=== PATIENT | female | born 1975 | race Caucasian/White ===

== ENCOUNTER → 2022-01-31 13:29 | Outpatient (CLI) | payer OTHER, SELFPAY ==
--- NOTE | ~2022-01-31 | MM_ITS ---
EXAMINATION: MM screening sophia BI w jessica HISTORY: Screening mammogram TECHNIQUE: Craniocaudal and mediolateral oblique 3-D tomosynthesis images were obtained and synthetic 2-D images were generated. CAD analysis was submitted and interpreted. COMPARISON: No prior mammogram is available for comparison at this institution. BREAST PARENCHYMAL COMPOSITION: The breasts are almost entirely fatty FINDINGS: There is no evidence of suspicious mass, calcification, or architectural distortion to sugg est malignancy in either breast. There has been no suspicious interval change. IMPRESSION: 1. No mammographic evidence of malignancy. 2. Recommend routine screening mammography in one year. BI-RADS Category 1: Negative Reviewed, dictated and finalized at location A.
== END ==
PROVIDERS: PCP Nurse Practitioner Obstetrics & Gynecology; Visit Provider Nurse Practitioner Obstetrics & Gynecology
DX: Z12.31 Encounter for screening mammogram for malignant neoplasm of breast (principal)
CPT/HCPCS: 77063; 77067

== ENCOUNTER → 2023-05-24 06:56 | Outpatient (CLI) | payer OTHER, SELFPAY ==
--- NOTE | ~2023-05-24 | MM_ITS ---
EXAMINATION: MM screening sophia BI w jessica HISTORY: Screening mammogram TECHNIQUE: Craniocaudal and mediolateral oblique 3-D tomosynthesis images were obtained and synthetic 2-D images were generated. CAD analysis was submitted and interpreted. COMPARISON: 01/27/2022 bilateral screening mammogram BREAST PARENCHYMAL COMPOSITION: The breasts are almost entirely fatty. FINDINGS: There is no evidence of suspicious mass, calcification, or architectural distortion to sugg est malignancy in either breast. There has been no suspicious interval change. IMPRESSION: 1. No mammographic evidence of malignancy. 2. Recommend routine screening mammography in one year. BI-RADS Category 1: Negative Reviewed, dictated and finalized at location A.
== END ==
PROVIDERS: PCP Nurse Practitioner Obstetrics & Gynecology; Visit Provider Nurse Practitioner Obstetrics & Gynecology
DX: Z12.31 Encounter for screening mammogram for malignant neoplasm of breast (principal)
CPT/HCPCS: 77063; 77067

== ENCOUNTER 2023-12-20 08:08 | Day surgery (SDC) | payer OTHER, SELFPAY ==
[2023-11-29 08:34] VITALS: BMI 33.3
[2023-12-06 07:32] VITALS: BMI 34.9
[2023-12-20 08:45] VITALS: BP 129/89; PULSE 93; RESP 16; TEMP 37.2; O2SAT 99
[2023-12-20] MEDS: LACTATED RINGERS 1,000 ML 150 ML IV CONT (08:52)
--- NOTE | 2023-12-20 09:04 | P.PNAN_ITS ---
Anes - Initial Pre Proc Eval Procedure: Operation Date: 12/20/23 10:00 Proposed Procedures p Screening Colonoscopy - Royce Foster MD Date/Time: 12/20/23 09:04 Surgeon: Royce Foster MD Pre Op Diagnosis: Screening Neoplasm of Colon Patient Data Age: 48 Gender: F Height: 1.52 m Weight: 74.2 kg Last Vital Signs Temp 37.2 C 12/20/23 08:45 Pulse 93 12/20/23 08:45 Resp 16 12/20/23 08:45 BP 129/89 12/20/23 08:45 Pulse Ox 99 12/20/23 08:45 O2 Del Method Room Air 12/20/23 08:45 Allergies Allergy/AdvReac Type Severity Reaction Status Date / Time aspartame AdvReac Mild MOUTH Verified 12/20/23 08:43 ITCHING Home Medications Medication Instructions Recorded Confirmed Type multivit with minerals-iron 18 1 tablet PO DAILY 12/06/23 12/20/23 History mg-folic ac 400 mcg-vit K 25 mcg tablet (Adults Multivitamin) Patient hx anesthesia problems: none Family hx anesthesia problems: none Results Review: All pre-operative results and documents have been reviewed as part of the pre- operative evaluation. COUNTS INCLUDE 234 BEDS AT THE [facility] Past Medical History Medical History (Updated 12/20/23 @ 09:04 by Kevin Monreal MD) Obesity Surgical History Surgical History (Updated 12/20/23 @ 09:05 by Kevin Monreal MD) H/O arthroscopic knee surgery Social History Social History Smoking status: Never smoker Alcohol intake: current Substance use: never Substance use type: does not use Living arrangements: with family Spiritual care concerns: No Anes - Eval Final PreProcedure Day of Procedure 12/20/23 09:04 Patient weight: obese Heart: regular rate and rhythm Lungs: clear to auscultation Airway: Mallampati scale class II Neurological: alert and oriented Last oral intake: >/= 8 hours ASA classification: II Emergent: no Anesthetic plan: proceed Anesthesia type and monitoring: general GIVS and standard monitoring Results Review: All pre-operative results and documents have been reviewed as part of the pre- operative evaluation. Informed Consent: The patient's anesthetic plan and its attendant risks and benefits were discussed with the patient/family/POA. Questions were solicited and answers provided to the satisfaction of the patient/family/POA.
--- NOTE | 2023-12-20 09:37 | P.HP_ITS ---
History of Present Illness History of Present Illness Consent: Risks, benefits, and alternatives have been discussed and questions answered. Patient agrees to proceed with procedure. Chief complaint: Screening Neoplasm of Colon Narrative: Nava Lee is a 48 year old female presents for screening colonoscopy. Patient's current weight appetite and bowel movements are normal. Patient denies abdominal pain. She has had no bleeding. Family history noncontri butory. Review of Systems Review of Systems: All systems reviewed & are unremarkable except as noted in HPI and below PMFSH Past Medical History Medical History (Updated 12/20/23 @ 09:39 by Royce Foster MD) Obesity Surgical History Surgical History (Updated 12/20/23 @ 09:05 by Kevin Monreal MD) H/O arthroscopic knee surgery Social History Social History Smoking status: Never smoker Alcohol intake: current Substance use: never Substance use type: does not use Living arrangements: with family Spiritual care concerns: No Meds Home Medications and Allergies Home Medications Medication Instructions Recorded Confirmed Type multivit with minerals-iron 18 1 tablet PO DAILY 12/06/23 12/20/23 History mg-folic ac 400 mcg-vit K 25 mcg tablet (Adults Multivitamin) Allergies Allergy/AdvReac Type Severity Reaction Status Date / Time aspartame AdvReac Mild MOUTH Verified 12/20/23 08:43 ITCHING Vital Signs Vital Signs - 24 hr 12/20/23 08:45 Temperature 98.9 F Pulse Rate 93 Respiratory Rate 16 Blood Pressure 129/89 Pulse Oximetry 99 Oxygen Delivery Room Air Exam Narrative: Physical exam reveals patient to be alert. Vital signs stable. HEENT exam is unremarkable. Patient is anicteric. Lungs are clear to auscultation and to percussion heart is without murmur or extra sounds. Abdomen bowel sounds are present soft nontender with no organomegaly. Digital external rectal exam normal. Assessment and Plan Assessment and plan (1) Encounter for screening colonoscopy: Code(s): Z12.11 - Encounter for screening for malignant neoplasm of colon Status: Acute Assessment and Plan: Presents today for screening colonoscopy. She appears to be at average risk for colon polyps.
[2023-12-20 10:56] VITALS: BP 103/72; PULSE 74; RESP 15; O2SAT 98
[2023-12-20 11:06] VITALS: BP 116/81; PULSE 73; RESP 16; O2SAT 100
--- NOTE | 2023-12-20 11:15 | WPDANESPN ---
Anes - Prog Note Post-Op Date/Time: 12/20/23 11:15 Cardiovascular status: normal Respiratory status: normal Airway patency: baseline Mental status: baseline Post-Op hydration status: normal Vital Signs: Last Vital Signs Temp 37.2 C 12/20/23 08:45 Pulse 73 12/20/23 11:06 Resp 16 12/20/23 11:06 BP 116/81 12/20/23 11:06 Pulse Ox 100 12/20/23 11:06 O2 Del Method Room Air 12/20/23 11:06 Pain Score (VAS): 0/10 I/O: Intake & Output 12/19/23 12/20/23 12/20/23 23:59 07:59 15:59 Intake Total 300 Balance 300 Patient Feedback: Patient satisfied with anesthetic care.
[2023-12-20 11:16] VITALS: BP 109/79; PULSE 68; RESP 15; O2SAT 99
== END 2023-12-20 11:29 | disposition home or self-care (01) ==
PROVIDERS: Visit Provider Internal Medicine Gastroenterology
PROC: 0DJD8ZZ Inspection of Lower Intestinal Tract, Via Natural or Artificial Opening Endoscopic (ICD-10-PCS; CPT 45378; principal; 2023-12-20 10:00)
DX: Z12.11 Encounter for screening for malignant neoplasm of colon (principal); K57.30 Diverticulosis of large intestine without perforation or abscess without bleeding; K64.8 Other hemorrhoids
CPT/HCPCS: 45378

== ENCOUNTER 2024-06-04 11:30 | Outpatient (CLI) | payer OTHER, BC, SELFPAY ==
--- NOTE | ~2024-06-04 | MM_ITS ---
EXAMINATION: MM screening sophia BI w jessica HISTORY: Screening TECHNIQUE: Craniocaudal and mediolateral oblique 3-D tomosynthesis images were obtained and synthetic 2-D images were generated. CAD analysis was submitted and interpreted. COMPARISON: Comparison to multiple prior studies sequentially, with oldest reviewed study dated 01/31. BREAST PARENCHYMAL COMPOSITION: Not dense: There are scattered areas of fibroglandular density. FINDINGS: There is no evidence of suspicious mass, calcification, or architectural distortion to sugg est malignancy in either breast. There has been no suspicious interval change. IMPRESSION: 1. No mammographic evidence of malignancy. 2. Recommend routine screening mammography in one year. BI-RADS Category 1: Negative Reviewed, dictated and finalized at location B.
== END 2024-06-04 11:31 | disposition home or self-care (01) ==
PROVIDERS: Visit Provider Obstetrics & Gynecology
DX: Z12.31 Encounter for screening mammogram for malignant neoplasm of breast (principal)
CPT/HCPCS: 77063; 77067

== ENCOUNTER 2025-02-02 06:40 | Observation (INO) | payer OTHER, BC, SELFPAY ==
[2025-02-02] VITALS (8 sets, daily range): BP systolic 126–154; BP diastolic 65–89; PULSE 68–88; RESP 12–20; TEMP 36.4–37.8; O2SAT 95–100; BMI 32.3
--- NOTE | ~2025-02-02 | MR_ITS ---
EXAMINATION: MR MRCP wo/w con/w 3D wo ind DATE: 02/03/2025 12:40 INDICATION: Abnormal CT. Assess for cholecystitis. TECHNIQUE: Magnetic resonance imaging (MRI) of the abdomen was performed without and with 15 mL Multi jaye intravenous contrast. Sequences included coronal T2-weighted SS-FSE, coronal T2-weighted FS SS- FSE, coronal T2-weighted FS FIESTA, axial T2-weighted FS FIESTA, axial T2-weighted FIESTA, sagittal T 2-weighted SS-FSE, axial T1-weighted dual-echo FSPGR, axial T2-weighted SS-FSE, axial T1-weighted LAV A, axial T2-weighted STIR FSE. Thick-slab T2-weighted FRFSE-XL images were obtained for magnetic reso nance cholangiopancreatography (MRCP). Rotating maximum intensity projection 3-D reconstructions of t he volumetric data were created by the technologist. Postcontrast sequences included a time course of axial T1-weighted LAVA. COMPARISON: CT dated 02/02/2025 FINDINGS: ABDOMEN MRI: Heart size is normal. No pericardial effusion. Mild dependent atelectasis in bilateral l ower lobes. There are multiple low signal intensity gallstones within the decompressed gallbladder. The liver, pancreas, right kidney and bilateral adrenal glands are normal. 1 cm T2 hyperintense none nhancing left renal cyst. 9.4 x 6.9 x 6.8 cm bilobed nonenhancing thick walled cystic lesion in the p ancreas with peripheral rim calcific lesion evident on prior CT likely sequela prior infection or hem atoma. Visualized portion of the bowels are unremarkable. No pathologically enlarged abdominal or upp er pelvic lymphadenopathy. Bone marrow signal is normal throughout. ABDOMEN MRCP: The previously seen intrahepatic biliary ductal dilation has resolved. There has also been interval r esolution of the previously seen extra hepatic biliary ductal dilation with common bile duct previous ly measuring 1.3 cm and common bile duct measuring up to 8 mm currently measuring 5-6 mm and 3 mm res pectively. No evident intraluminal filling defects to suggest current choledocholithiasis. IMPRESSION: 1. Cholelithiasis within the decompressed gallbladder. 2. Interval resolution of the prior intra and extra hepatic biliary ductal dilation with no evident c holedocholithiasis or other obstructing lesions. 3. Peripherally calcified cystic lesion in the spleen, likely sequela of chronic infection or hematom a. Reviewed, dictated and finalized at location A. IMPRESSION: 1. Cholelithiasis within the decompressed gallbladder. 2. Interval resolution of the prior intra and extra hepatic biliary ductal dila tion with no evident choledocholithiasis or other obstructing lesions. 3. Peripherally calcified cystic lesion in the spleen, likely sequela of chroni c infection or hematoma.
--- NOTE | ~2025-02-02 | US_ITS ---
US right upper quadrant INDICATION: Abnormal CT. Consider cholecystitis. PROCEDURE: Realtime right upper abdominal ultrasound. COMPARISON: No prior studies for comparison. FINDINGS: The pancreas is normal without focal mass or pancreatic ductal dilation. Liver echotexture is normal without focal mass or intrahepatic biliary dilatation. There is normal directional flow i n the portal vein. Gallbladder is contracted and contains stones. Common bile duct measures 4 mm. No sonographic Franklin y's sign. IMPRESSION: 1: Contracted gallbladder with stones. Cannot exclude gallbladder wall thickening. Reviewed, dictated and finalized at location A. IMPRESSION: 1: Contracted gallbladder with stones. Cannot exclude gallbladder wall thickeni ng.
--- NOTE | ~2025-02-02 | CT_ITS ---
CLINICAL INDICATION: Diffuse abdominal pain COMPARISON: None. TECHNIQUE: Multiple contiguous axial images of the abdomen and pelvis were performed following the ad ministration of with 100 mL Omnipaque-350 intravenous contrast The dose-length product (DLP) was 689.90 mGy-cm. Automated exposure control and iterative reconstruction technique were employed. FINDINGS/OBSERVATIONS: Visualized lower thorax: Trace right basilar atelectasis. The remainder of the bilateral lung bases are clear. The heart is of normal size, without pericardial effusion. Small hiatal hernia is present. Liver: The liver demonstrates homogeneous enhancement and is enlarged measuring 22 cm in longitudinal dimens ion. Gallbladder and biliary system: The gallbladder is decompressed, with surrounding inflammatory change and stones. Intra and extrahepatic biliary ductal dilatation is identified with the common bile duct measuring 9. 3 mm. Pancreas: The pancreas enhances homogeneously without pancreatic ductal dilatation. Spleen: Splenic cysts with rim calcifications are identified measuring 6.7 and 5.6 cm, respectively. The remainder of the spleen enhances homogeneously and is not enlarged. Kidneys: The bilateral kidneys enhance symmetrically without hydronephrosis or renal calculi. Adrenal glands: Unremarkable. Gastrointestinal tract: Colonic diverticulosis without surrounding inflammatory change. Fecal stasis within the colon. Appendix: The air-filled appendix is of normal caliber (axial series, images 113 through 129) Vasculature: Unremarkable. Lymph nodes: No pathologically enlarged or morphologically suspicious lymph nodes within the retroperitoneum or at the root of the mesentery. Pelvic structures: The bladder is markedly distended, almost the level of the umbilicus. The uterus is anteverted and anteflexed. Body wall and musculoskeletal: Small fat-containing umbilical hernia. No significant degenerative disease within the lower thoracic or lumbosacral spine. IMPRESSION: Intra and extrahepatic biliary ductal dilatation without gallbladder enlargement but with significant gallbladder inflammation. No pancreatic ductal dilatation is identified No discrete ampullary mass is visualized with cross-sectional imaging. No calcified stone is visualiz ed as a source of obstruction. Significant hepatomegaly. Trace right basilar atelectasis Reviewed, dictated and finalized at location A. IMPRESSION: Intra and extrahepatic biliary ductal dilatation without gallbladder enlargemen t but with significant gallbladder inflammation. No pancreatic ductal dilatatio n is identified No discrete ampullary mass is visualized with cross-sectional imaging. No calci fied stone is visualized as a source of obstruction. Significant hepatomegaly. Trace right basilar atelectasis
--- OUTSIDE RECORDS SUMMARY | 2025-02-02 06:42 | XMS_ITS | Encounter Summary ---
Author Organization [facility] Address [address] [place] [address] Care Team Providers Care Smudger Name Role Phone Joselito Matute DO Unavailable [phone] Aditya Yip MD Unavailable [phone] Aditya Yip MD Primary Care Provider [phone] Encounter Details Date Type Department Care Team (Late st Contact Info) Description 01/29/2025 Orders Only [facility] [address] [phone] Aditya Yip MD [address] [place] [phone] Prediabetes ; Vitamin D deficiency; Well adult exam Social History Tobacco Use Types Packs/Day Years Used Date Smoking Tobacco: Never Smokeless Tobacco: Never Alcohol Use Standard Drinks/Week Comments Yes 0.8 (1 standard drink = 0.6 oz p ure alcohol) Comments No Sex and Gender Information Value Date Recorded Sex Assigned at Not on file Legal Sex Female 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 Gender Identity Not on file Sexual Orientation Not on file 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 file N ot on file Not on file documented as of this encounter Plan of Treatment Upcoming Encounters Date Type Department Care Team (Late st Contact Info) Description 02/09/2025 9:30 AM CDT Office Visit [facility] - Family [address] [place] [phone] Kiya Thompson, ASSISTED LIVING MANAGER-FILM NUMBERER [address] [phone] Scheduled Orders Name Type Priority Associated Diagnoses Orde r Schedule HEMOGLOBIN A1C Lab Routine Prediabetes Ordered: 01/29/2025 TSH Lab Routine Well adult exam Ordered: 01/29/2025 VITAMIN D 25-HYDROXY Lab Routine Vitamin D deficiency Ordered: 01/29/2025 LIPID PROFILE REFLEX LDL DIRECT Lab Routine Well adult exam Ordered: 01/29/2025 CBC WITH DIFFERENTIAL Lab Routine Well adult exam Ordered: 01/29/2025 COMPREHENSIVE METABOLIC PANEL Lab Routine Well adult exam Ordered: 01/29/2025 documented as of this encounter Visit Diagnoses Diagnosis Prediabetes- Primary Other abnormal glucose Vitamin D deficiency Well adult exam Routine general medical examination at a health care facility documented in this encounter Care Teams Smudger Relationship Specialty Start Date End Date Aditya Yip MD [address] [phone] PCP - General Family Medicine 11/22/23 Joselito Matute DO Orthopedic Surgery 07/03/17 Aditya Yip MD [address] [phone] Family Medicine 11/22/23 documented as of this encounter
--- OUTSIDE RECORDS SUMMARY | 2025-02-02 06:42 | XMS_ITS | Clinical Summary ---
Author Organization [facility] Address [address] [place] [address] Care Team Providers Care Open Die Inspector Name Role Phone Colin France MD Primary Care Provider [phone] Allergies No known active allergies Medications No known medications Immunizations Immunization Administration Dates Next Due (ADACEL/BOOSTRIX)(10 YR UP) TDAP VACCINE, 0.5ML, IM 12/18/2017 Social History Tobacco Use Types Packs/Day Years Used Date Smoking Tobacco: Never Smokeless Tobacco: Never Alcohol Use Standard Drinks/Week Comments No 0 (1 standard drink = 0.6 oz pur e alcohol) Comments No Sex and Gender Information Value Date Recorded Sex Assigned at Not on file Legal Sex Female 11:37 AM CDT Gender Identity Not on file Sexual Orientation Not on file Last Filed Vital Signs Vital Sign Reading Time Taken Comments Blood Pressure 131/82 12/26/2017 12:05 PM CDT Pulse 81 12/26/2017 12:05 PM CDT Temperature 36.8 C (98.2 F) 12/26/2017 12:05 PM CDT Respiratory Rate 16 12/26/2017 12:05 PM CDT Oxygen Saturation 100% 12/26/2017 12:05 PM CDT Inhaled Oxygen Concentration - - Weight 76.7 kg (169 lb) 12/26/2017 12:05 PM CDT Height 152.4 cm (5') 12/26/2017 12:05 PM CDT Body Mass Index 33.01 12/26/2017 12:05 PM CDT Plan of Treatment Health Maintenance Due Date Last Done Comments HEPATITIS B VACCINES (1 of 3 - 19+ 3-dose series) 05/12 HPV/Cotest (21-29) 1998 CERVICAL CANCER SCREENING 2007 HPV/Cotest (30-65) 2007 PAP SMEAR 2007 BREAST CANCER SCREENING 2017 COLORECTAL SCREENING 2022 Colorectal Cancer Screening 2022 FIT-DNA Q 3 years 2022 FIT/FOBT Q 1 year 2022 Flex Sig/CT Colonography Q 5 years 2022 INFLUENZA VACCINE (#1) 2024 DTAP/TDAP/TD VACCINES (2 - Td or Tdap) 12/19/2027 Care Teams Open Die Inspector Relationship Specialty Start Date End Date Colin France MD [address] [place] [id number] PCP - General Family Practice 12/18/17
--- OUTSIDE RECORDS SUMMARY | 2025-02-02 06:42 | XMS_ITS | Encounter Summary ---
Author Organization [facility] Address [address] [place] [address] Care Team Providers Care Master Glazier Name Role Phone Colin France MD Primary Care Provider [phone] Joselito Matute DO Unavailable [phone] Aditya Yip MD Unavailable [phone] Aditya Yip MD Primary Care Provider [phone] Encounter Details Date Type Department Care Team (Late st Contact Info) Description 08/30/2017 [facility] Outpatient Visit 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 - Family Medicine [address] [facility], [address] [place] [address] Kiya Thompson, MENU PLANNER-MATTRESS FILLER [address] [phone] documented as of this encounter Visit Diagnoses Not on filedocumented in this encounter Care Teams Master Glazier Relationship Specialty Start Date End Date Colin France MD [address] [place] [id number] PCP - General 10/18/10 11/21/23 Aditya Yip MD [address] [phone] PCP - General Family Medicine 11/22/23 Joselito Matute DO [address] [place] [id number] Orthopedic Surgery 07/03/17 Aditya Yip MD [address] [phone] Family Medicine 11/22/23 documented as of this encounter
--- OUTSIDE RECORDS SUMMARY | 2025-02-02 06:42 | XMS_ITS | Clinical Summary ---
Author Organization [facility] Address [address] [place] [address] Care Team Providers Care Business Technology Architect Name Role Phone Joselito Matute DO Unavailable [phone] Aditya Yip MD Unavailable [phone] Aditya Yip MD Primary Care Provider [phone] Source Comments [facility],non-owned Affiliates and Associated Physician Practices is amultiple site organization consisting of ambulatory clinics and hospital sitesin [place], [place], [place] and [place]. This disclosure is being madepursuant to the Care Everywhere program and may not contain all information available regarding this patient. Last updated 18.[facility] Allergies Active Allergy Reactions Criticality Noted Date Comments Artificial Sweeteners Headache 11/22/2023 Soft palate also starts itching Medications * Be aware that medications may not be up to date on this document. Alwaysverify current medications with the patient. No known medications Active Problems Problem Noted Date Diagnosed Date Closed displaced spiral fracture of shaft of rig ht humerus 07/12/2017 Hypertriglyceridemia 06/14/2012 Hyperglycemia 06/14/2012 Routine general medical exam ination at a health care facility 06/10/2012 Well woman exam with routine gynecological exam 06/10/2012 Obesity 09/24/2010 Encounters Date Type Department Care Team Description 01/29/2025 Orders Only [facility] - Family Medicine [address] [place] [address], [address] [place] [address] Aditya Yip MD Prediabetes ; Vitamin D deficiency; Well adult exam 01/29/2025 Telephone [facility] [address] [place] [address], [address] [place] [address] Aditya Yip MD Request Lab Order from Last 3 Months Immunizations Immunization Administration Dates Next Due INFLUENZA VACCINE, TRIV. (FL UZONE; FLULAVAL; FLUARIX; AFLURIA TRIVALENT; 6MO+), 0.5 ML (IIV3) 08/21/2015 TDAP (7yrs+) 12/18/2017,06/10/2012 TDAP, HISTORIC VACCINE 12/06/2015 Family History Medical History Relation Name Comments Hypertension Brother Trae Diabetes; unknown type Father currently diet controled, no meds Hypertension Father Hypertension Mother Relation Name Status Comments Brother Trae Alive #1 Father Alive Mother Alive Social History Tobacco Use Types Packs/Day Years Used Date Smoking Tobacco: Never Smokeless Tobacco: Never Tobacco Cessation:Counseling Given: Not Answered Alcohol Use Standard Drinks/Week Comments Yes 0.8 (1 standard drink = 0.6 oz p ure alcohol) Comments No Sex and Gender Information Value Date Recorded Sex Assigned at Not on file Legal Sex Female 4:15 AM [employer] Gender Identity Not on file Sexual Orientation Not on file 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 on file Last Filed Vital Signs Vital Sign Reading Time Taken Comments Blood Pressure 130/90 11/22/2023 10:07 AM CDT Pulse 96 11/22/2023 10:07 AM CDT Temperature 37.4 C (99.3 F) 11/22/2023 10:07 AM CDT Respiratory Rate 16 07/13/2017 11:04 AM CDT Oxygen Saturation 96% 11/22/2023 10:07 AM CDT Inhaled Oxygen Concentration - - Weight 77.4 kg (170 lb 9.6 oz) 11/22/2023 10:07 AM CDT Height 152.4 cm (5') 11/22/2023 10:07 AM CDT Body Mass Index 33.32 11/22/2023 10:07 AM CDT Plan of Treatment Upcoming Encounters Date Type Department Care Team (Late st Contact Info) Description 02/09/2025 9:30 AM CDT Office Visit [facility] - Family Medicine [address], [address] [place] [phone] Kiya Thompson, CARD STRIPPER-LICENSED PSYCHOLOGIST [address] [place] [address] Health Maintenance Due Date Last Done Comments COLOGUARD (AGES 45-75) - COL ON CA SCREENING 1977 CT COLONOGRAPHY - COLON CA SCREENING 1977 FIT - COLON CA SCREENING 1977 FLEX SIG - COLON CA SCREENING 1977 MAMMOGRAM 1977 HIV SCREENING 1992 HEPATITIS C SCREENING 06/02/1995 HEPATITIS B VACCINE (1 of 3 - 19+ 3-dose series) 1996 PAP SMEAR 06/10/2015 06/10/2012, 06/10/2012, 10/21/2007 SCREENING FOR DIABETES 11/22/2023 2, 10/21/2007 COVID-19 VACCINE ( - 2023-2 5 season) 2024 08/13/2021, 12/10/2020, 11/21/2020 DEPRESSION SCREENING 09/10/2024 INFLUENZA VACCINE (Season Ended) 2025 08/21/2015 ZOSTER VACCINE (1 of 2) 2027 DTAP/TDAP/TD VACCINES (4 - T d or Tdap) 12/19/2027 12/18/2017, 12/06/2015, 06/10/2012 LIPID TESTING 04/05/2028 04/05/2023, 06/10/2012, 10/21/2007 COLON MONITORING 12/19/2033 12/20/2023 COLONOSCOPY - COLON CA SCREENING 12/19/2033 12/20/2023 Colorectal Cancer Screening 12/19/2033 HIB VACCINE Aged Out No longer eligi ble based on patient's age to complete this topic HPV VACCINE Aged Out No longer eligi ble based on patient's age to complete this topic MENINGOCOCCAL (Group B) VACCINE SHARED DECISION-MAKING Aged Out No longer eligible based on patient's age to complete this topic MENINGOCOCCAL GROUPS A/C/Y/W VACCINE Aged Out No longer eligible b ased on patient's age to complete this topic PNEUMOCOCCAL VACCINE Aged Out No long er eligible based on patient's age to complete this topic Medical Devices Implanted Type Area Restaurant Server Device Identifier Shelf Expiration Date Model / Serial / Lot Plate 145mm Comp 10 Hl 3.5mm Screws Lt Implanted:Qty: 1 on 07/12/2017 by Joselito Matute, DO at [facility] Right: Arm [employer] [id number] / / Screw 2.7mm 5mm 20mm T15 Flut Lng Bone Implanted:Qty: 1 on 07/12/2017 by Joselito Matute DO at [facility] Right: Arm [employer] [id number] / / Screw 3.5mm 18mm Aleks T20 Slf-Tap Prlc Implanted:Qty: 4 on 07/12/2017 by Joselito Matute, DO at [facility] Right: Arm [employer] [id number] / / Screw 3.5mm 6.8mm 20mm T20 Cut Flut Lng Implanted:Qty: 1 on 07/12/2017 by Joselito Matute DO at [facility] Right: Arm [employer] [id number] / / Screw 3.5mm 6mm 18mm T15 Ft Cortx Implanted:Qty: 1 on 07/12/2017 by Joselito Matute, DO at [facility] Right: Arm [employer] [facility] [id number] / / Procedures Procedure Name Priority Date/Time Associated Diagnosis Comments COLONOSCOPY 12/20/2023 PAP IG LB RFLX HPV HR ALL Routine 06/10/2012 5:16 PM CDT Well woman exam with routine gynecological exam GLUCOSE Routine 06/10/2012 2:53 PM CDT Obesity LIPID PROFILE Routine 06/10/2012 2:53 PM CDT Obesity from Last 3 Months or Most Recently Relevant to Health Maintenance Results * COLONOSCOPY (12/20/2023) 12/20/2023 Narrative 12/20/2023 Ordered by an unspecified provider. us Scanned Document SCANNING ONLY Final Result * PAP IG REFLX HPV ALL PTH (PO REF LAB) (06/10/2012 5:16 PM CDT) Diagnosis [facility] ACCOUNT BILL Comment:NEGATIVE FOR INTRAEP ITHELIAL LESION AND MALIGNANCY. Specimen Adequacy [facility] ACCOUNT BILL Comment: Satisfactory for evaluation. Endocervical and/or squamous metaplastic cells (endocervical component) are present. Clinician Provided ICD9 [facility] ACCOUNT BILL Comment: V72.31 ; Routine gynecological examination V06.1 ; [id number]-[id number], combined [DTP] [DtaP] Performed by [facility] ACCOUNT BILL Comment:Blaine Zamora hnologist (ASCP) Comment . [facility] ACCOUNT BILL Note [facility] ACCOUNT BILL Comment: The Pap smear is a screening test designed to aid in the detection of premalignant and malignant conditions of the uterine cervix. It is not a diagnostic procedure and should not be used as the sole means of detecting cervical cancer. Both false-positive and false-negative reports do occur. . IGLBP CPT Code Automation [facility] ACCOUNT BILL Comment: This liquid based ThinPrep(R) pap test was screened with the use of an image guided system. Note [facility] ACCOUNT BILL Comment: The HPV DNA reflex criteria were not met with this specimen result therefore, no HPV testing was performed. . MICROSCOPIC CYTOLOGIC EXAMINATION OF SMEAR OF SPECIMEN FROM FEMALE GENITAL TRACT PREPARED USING PAPANICOLAOU TECHNIQUE / Unknown 06/10/2012 5:16 PM CDT 06/12/2012 10:40 AM CDT Narrative [facility] ACCOUNT BILL - 06/13/2012 12:21 PM CDT No. of containers..01 CYTYC Thin Prep Vial Resulting Agency Comment [facility] [address] [place] [address] Ladonna MELÉNDEZ [id number] us Colin France MD LAB - PATHOLOGY/CYTOLOGY ORDERAB LES Final Result [facility] ACCOUNT BILL [address] [place] [address] * (ABNORMAL) GLUCOSE (06/10/2012 2:53 PM CDT) Glucose 112(H) 65 - 99 mg/dL [facility] ACCOUNT BILL Blood specimen (specimen) BLOOD SPECIMEN / Unknown 06/10/2012 2:53 PM CDT 06/10/2012 7:07 PM CDT Narrative Resulting Agency Comment [facility] [address] [facility] [id number] Colin France MD LAB - CHEMISTRY ORDERABLES Final Result Performing Organization Address City/[facility]/ZIP Co de Phone Number [facility] ACCOUNT BILL [address] [place] [address] * (ABNORMAL) LIPID PROFILE (06/10/2012 2:53 PM CDT) Cholesterol 191 100 - 199 mg/dL [facility] ACCOUNT BILL Comment:Please note refere nce interval change Triglycerides 402(H) 0 - 149 mg/dL [facility] ACCOUNT BILL Comment:Please note refere nce interval change HDL Cholesterol 48 >39 mg/dL [facility] ACCOUNT BILL Comment: According to ATP-III Guidelines, HDL-C >59 mg/dL is considered a negative risk factor for CHD. VLDL Calculated 5 - 40 mg/dL [facility] ACCOUNT BILL Comment: The calculation for the VLDL cholesterol is not valid when triglyceride level is >400 mg/dL. LDL Calculated 0 - 99 mg/dL [facility] ACCOUNT BILL Comment: Triglyceride result indicated is too high for an accurate LDL cholesterol estimation. Please note reference interval change Blood specimen (specimen) BLOOD SPECIMEN / Unknown 06/10/2012 2:53 PM CDT 06/10/2012 7:07 PM CDT Narrative Resulting Agency Comment [facility] [address] [facility] [id number] Colin France MD LAB - CHEMISTRY ORDERABLES Final Result Performing Organization Address City/[facility]/ZIP Co de Phone Number [facility] ACCOUNT BILL [address] [place] [address] from Last 3 Months or Most Recently Relevant to Health Maintenance Insurance [facility] Advance Directives * Full Code (Latest Code Status on File) Date Activated Date Inactivated Comments 07/12/2017 4:22 PM 07/13/2017 5:34 PM Care Teams Business Technology Architect Relationship Specialty Start Date End Date Aditya Yip MD [address] [address] PCP - General Family Medicine 11/22/23 Joselito Matute DO Orthopedic Surgery 07/03/17 Aditya Yip MD [address] [phone] Family Medicine 11/22/23
--- OUTSIDE RECORDS SUMMARY | 2025-02-02 06:42 | XMS_ITS | Data Portability ---
Author Organization [facility] [place] Address [address] [place] [address] Assessment Encounter Date Assessment Date Assessment LastModified by Organization Details LastModified Time 08/25/2021 08/25/2021 Annual gynecological exam performed. Patient will come back in a year unless there are new symptoms. Not available 08/25/2021 11:56:37 04/02/2023 04/02/2023 Annual gynecological exam performed. Patient will come back in a year unless there are new symptoms. [email or web address] Not available 04/02/2023 09:42:34 Plan of Treatment Reminders Order Date Submit Date Provider Last Modified By Organization Details Last Modified Time Details Appointments None recorded . Lab hormone panel, serum or plasma 2022 023 [facility] (Lab), [address] [place], [address], 3 06:43:26 HbA1c (hemoglo bin A1c), blood 2022 023 [facility] (Lab), [address] [place], [address], 3 06:43:24 CBC w/ auto diff 2022 023 [facility] (Lab), [address] [place], [address], 3 06:43:23 TSH, serum or plasma 2022 023 [facility] (Lab), [address], [place], [address], 3 06:43:26 lipid panel, blood 2022 023 [facility] (Lab), [address] [facility], [place], [address], 3 06:43:24 CMP, serum or plasma 2022 023 [facility] (Lab), [address] [facility], [place], [address], 3 06:43:25 vitamin D, 25-hydro xy, total, serum 2022 023 [facility] (Lab), [address] [facility], [place], [address], 3 06:43:26 hormone panel, serum or plasma [address] (Lab), [address] [facility], [place], [address], 2 16:28:18 prolacti n, serum 2020 021 [facility] (Lab), [address] [facility], [place], [address], 1 03:56:55 TSH, serum or plasma 2020 021 [facility] (Lab), [address] [facility] [address], [place], [address], 1 03:56:54 FSH (follicl e-stimul ating hormone) , serum 2020 021 [facility] (Lab), [address] [place], [address], 1 03:56:57 estradio l, serum 2020 021 [facility] (Lab), [address] [facility], [place], [address], 1 03:56:58 lh (luteini zing hormone) , serum 2020 021 [facility] (Lab), [address] [facility], [place], [address], 1 03:56:56 CBC w/ auto diff 2020 021 [facility] (Lab), [address] [facility], [place], [address], 1 03:56:52 CMP, serum or plasma 2020 021 [facility] (Lab), [address] [facility], [place], [address], 1 03:56:53 HbA1c (hemoglo bin A1c), blood 2020 021 [facility] (Lab), [address] [facility], [place], [address], 1 03:56:59 beta-HCG , quantita tive, serum or plasma 2020 021 [facility] (Lab), [address] [facility] [address], [place], [address], 1 03:56:[address] referral - Diarrhea .Please call patient to schedule an appointm ent. 2022 023 [facility], [address], [address], [place], [address], 3 16:16:58 Procedures None recorded . Surgeries None recorded . Imaging US, pelvis 2021 022 [email or web address] [place], [address], [address], [place], [address], 2 16:13:57 US, transvag inal 2021 022 [email or web address] [place], [address], [address], [place], [address], 2 16:13:57 US, pelvis, complete 2020 021 [email or web address] [place], [address], [place], [address], 15:51:57 MAMMO, diagnost ic, digital, bilatera l 2020 021 [email or web address], [address], [address] [facility], [place], [address], 16:54:43 Medication Orders None recorded . Patient TargetsNo targets recorded. Patient InstructionsNo instructions recorded. Reason for Referral Director Visual Referral for Diarrhea Diarrhea. Please call patient to schedule an appointment. Diarrhea.Please call patient to schedule an appointment. Referring Physician: Leslie Dorsey, [employer] MACHINE, Encounter Date: 04/02/2023 Results Created Date Observation Date Name Description Value Unit Range Abnormal Flag Note LastModifiedBy Organization Detail LastModifiedTime 08/25/20 21 08/25/2021 CBC W/DIF F WBC 6.5 10'3/ uL 3.6-10 .2 Not Available [facility] (Lab) [address] [place], [address], 08/26/2021 03:56:51 08/25/20 21 08/25/2021 CBC W/DIF F RBC 4.50 10'6/ uL (based on docume nted legal sex) 4.10-5 .30 Not Available [facility] (Lab) [address], [place], [address], 08/26/2021 03:56:51 08/25/20 21 08/25/2021 CBC W/DIF F HGB 13.4 g/dL (based on docume nted legal sex) 11.9-1 5.8 Not Available [facility] (Lab) [address], [place], [address], 08/26/2021 03:56:51 08/25/20 21 08/25/2021 CBC W/DIF F HCT 41.8 % (based on docume nted legal sex) 37.4-4 8.3 Not Available [facility] (Lab) [address], [place], [address], 08/26/2021 03:56:51 08/25/20 21 08/25/2021 CBC W/DIF F MCV 93.0 fL 82.0-9 9.0 Not Available [facility] (Lab) [address], [place], [address], 08/26/2021 03:56:51 08/25/20 21 08/25/2021 CBC W/DIF F MCH 30.0 pg 27.0-3 3.0 Not Available [facility] (Lab) [address], [place], [address], 08/26/2021 03:56:51 08/25/20 21 08/25/2021 CBC W/DIF F MCHC 32.0 g/dL 32.0-3 6.0 Not Available [facility] (Lab) [address], [place], [address], 08/26/2021 03:56:51 08/25/20 21 08/25/2021 CBC W/DIF F RDW 14.0 % 11.0-1 5.0 Not Available [facility] (Lab) [address], [place], [address], 08/26/2021 03:56:51 08/25/20 21 08/25/2021 CBC W/DIF F plt 271 10'3/ uL 150-45 0 Not Available [facility] (Lab) [address], [place], [address], 08/26/2021 03:56:51 08/25/20 21 08/25/2021 CBC W/DIF F MPV 10.8 fL 9.8-12 .7 Not Available [facility] (Lab) [address], [place], [address], 08/26/2021 03:56:51 08/25/20 21 08/25/2021 CBC W/DIF F NRBC's 0.00 % 0 Not Available [facility] (Lab) [address], [place], [address], 08/26/2021 03:56:51 08/25/20 21 08/25/2021 CBC W/DIF F absolute NRBCs 0.0 10'3/ uL 0 Not Available [facility] (Lab) [address], [place], [address], 08/26/2021 03:56:51 08/25/20 21 08/25/2021 CBC W/DIF F neutrophils 53.0 % 37.0-7 2.0 Not Available [facility] (Lab) [address], [place], [address], 08/26/2021 03:56:51 08/25/20 21 08/25/2021 CBC W/DIF F lymphocytes 38.0 % 16.0-4 8.0 Not Available [facility] (Lab) [address], [place], [address], 08/26/2021 03:56:51 08/25/20 21 08/25/2021 CBC W/DIF F monocytes 7.0 % 4.0-14 .0 Not Available [facility] (Lab) [address], [place], [address], 08/26/2021 03:56:51 08/25/20 21 08/25/2021 CBC W/DIF F eosinophils 1.0 % 0.0-9. 0 Not Available [facility] (Lab) [address], [place], [address], 08/26/2021 03:56:51 08/25/20 21 08/25/2021 CBC W/DIF F basophils 1.0 % 0.0-2. 0 Not Available [facility] (Lab) [address], [place], [address], 08/26/2021 03:56:51 08/25/20 21 08/25/2021 CBC W/DIF F immature granulocytes 0.0 % no define d refere nce range Not Available [facility] (Lab) [address] [facility], [place], [address], 08/26/2021 03:56:51 08/25/20 21 08/25/2021 CBC W/DIF F absolute neutrophils 3.5 10'3/ uL 1.1-6. 0 Not Available [facility] (Lab) [address] [facility], [place], [address], 08/26/2021 03:56:51 08/25/20 21 08/25/2021 CBC W/DIF F absolute lymphocytes 2.4 10'3/ uL 0.7-3. 4 Not Available [facility] (Lab) [address] [facility], [place], [address], 08/26/2021 03:56:51 08/25/20 21 08/25/2021 CBC W/DIF F absolute monocytes 0.4 10'3/ uL 0.3-1. 0 Not Available [facility] (Lab) [address] [facility], [place], [address], 08/26/2021 03:56:51 08/25/20 21 08/25/2021 CBC W/DIF F absolute eosinophils 0.1 10'3/ uL 0.0-0. 6 Not Available [facility] (Lab) [address] [facility], [place], [address], 08/26/2021 03:56:51 08/25/20 21 08/25/2021 CBC W/DIF F absolute basophils 0.1 10'3/ uL 0.0-0. 1 Not Available [facility] (Lab) [address] [facility], [place], [address], 08/26/2021 03:56:51 08/25/20 21 08/25/2021 CBC W/DIF F absolute immature granulocytes 0.00 10'3/ uL 0.00-0 .10 08/26 1:36 AM: P indic ates parti al resul ts on a panel have been relea sed. Addit ional resul ts will follo w. 08/26 1:36 AM: This resul t has been final verif ied. No addit ional or moore ed resul ts are expec imre. Not Available [facility] (Lab) [address] [facility] [address], [place], [address], 08/26/2021 03:56:51 08/25/20 21 08/25/2021 CMP(C OMPRE HENSI VE METAB OLIC PANEL ) sodium 141 mmol/ L 133-14 6 Not Available [facility] (Lab) [address] [facility] [address], [place], [address], 08/26/2021 03:56:53 08/25/20 21 08/25/2021 CMP(C OMPRE HENSI VE METAB OLIC PANEL ) potassium 4.2 mmol/ L 3.5-5. 1 Not Available [facility] (Lab) [address] [facility], [place], [address], 08/26/2021 03:56:53 08/25/20 21 08/25/2021 CMP(C OMPRE HENSI VE METAB OLIC PANEL ) chloride 104 mmol/ L 98-107 Not Available [facility] (Lab) [address] [place], [address], 08/26/2021 03:56:53 08/25/20 21 08/25/2021 CMP(C OMPRE HENSI VE METAB OLIC PANEL ) carbon dioxide 27 mmol/ L 21-31 Not Available [facility] (Lab) [address] [place], [address], 08/26/2021 03:56:53 08/25/20 21 08/25/2021 CMP(C OMPRE HENSI VE METAB OLIC PANEL ) anion gap 10 mmol/ L 4-13 Not Available [facility] (Lab) [address] [facility], [place], [address], 08/26/2021 03:56:53 08/25/20 21 08/25/2021 CMP(C OMPRE HENSI VE METAB OLIC PANEL ) blood urea nitrogen 13 mg/dL 7-25 Not Available [facility] (Lab) [address], [place], [address], 08/26/2021 03:56:53 08/25/20 21 08/25/2021 CMP(C OMPRE HENSI VE METAB OLIC PANEL ) creatinine 0.70 mg/dL 0.60-1 .30 Not Available [facility] (Lab) [address] [facility] [address], [place], [address], 08/26/2021 03:56:53 08/25/20 21 08/25/2021 CMP(C OMPRE HENSI VE METAB OLIC PANEL ) egfrcr (CKD-epi 2020) >90 mL/mi n/1.7 3_m2 >=60 Not Available [facility] (Lab) [address] [facility], [place], [address], 08/26/2021 03:56:53 08/25/20 21 08/25/2021 CMP(C OMPRE HENSI VE METAB OLIC PANEL ) calcium 9.4 mg/dL 8.3-10 .5 Not Available [facility] (Lab) [address], [place], [address], 08/26/2021 03:56:53 08/25/20 21 08/25/2021 CMP(C OMPRE HENSI VE METAB OLIC PANEL ) glucose 91 mg/dL 70-100 Not Available [facility] (Lab) [address] [facility] [address] [address], [place], [address], 08/26/2021 03:56:53 08/25/20 21 08/25/2021 CMP(C OMPRE HENSI VE METAB OLIC PANEL ) protein, total 7.0 g/dL 6.4-8. 3 Not Available [facility] (Lab) [address] [facility], [place], [address], 08/26/2021 03:56:53 08/25/20 21 08/25/2021 CMP(C OMPRE HENSI VE METAB OLIC PANEL ) albumin 4.4 g/dL 3.5-5. 0 Not Available [facility] (Lab) [address] [facility] [address], [place], [address], 08/26/2021 03:56:53 08/25/20 21 08/25/2021 CMP(C OMPRE HENSI VE METAB OLIC PANEL ) ALT 17 units /L 9-43 Not Available [facility] (Lab) [address] [facility], [place], [address], 08/26/2021 03:56:53 08/25/20 21 08/25/2021 CMP(C OMPRE HENSI VE METAB OLIC PANEL ) alkaline phosphatase 70 units /L 34-104 Not Available [facility] (Lab) [address] [facility], [place], [address], 08/26/2021 03:56:53 08/25/20 21 08/25/2021 CMP(C OMPRE HENSI VE METAB OLIC PANEL ) AST 15 units /L 13-39 Not Available [facility] (Lab) [address] [facility], [place], [address], 08/26/2021 03:56:53 08/25/20 21 08/25/2021 CMP(C OMPRE HENSI VE METAB OLIC PANEL ) bilirubin, total 0.3 mg/dL 0.2-1. 2 Not Available [facility] (Lab) [address] [facility], [place], [address], 08/26/2021 03:56:53 08/25/20 21 08/25/2021 TSH, REFLE X FREE T4 TSH 4.80 uIU/m L 0.30-5 .33 Not Available [facility] (Lab) [address] [facility] [address], [place], [address], 08/26/2021 03:56:54 08/25/20 21 08/25/2021 BHCG, QUANT ITATI VE B-HCG <0.2 mIU/m L This assay was perfo rmed using [employer] n reage nts and test kits. Value s obtai galindo with other assay metho ds or kits canno t be used inter moore eably . Refer ence Range s: Non-p regna nt, preme nopau chris women : 0.0-5 .3 mIU/m L Postm enopa usal women : 0.0-7 .0 mIU/m L Jillian l Pregn lu: Gesta saurabh l Age bHCG Conc. - mIU/m L 3 Weeks 5.8 - 71.7 4 Weeks 9.5 - 750 5 Weeks 217-7 138 6 Weeks 158 - 31,79 5 7 Weeks 3,697 - 162,5 63 8 Weeks 32,06 5 - 149,5 71 9 Weeks 63,80 3 - 151,4 10 10 Weeks 46,50 9 - 186,9 77 12 Weeks 27,83 2 - 210,6 12 14 Weeks 13,95 0 - 62,53 0 15 Weeks 12,03 9 - 70,97 1 16 Weeks 9,040 - 56,45 1 17 Weeks 8,175 - 55,86 8 18 Weeks 8,099 - 58,17 6 Not Available [facility] (Lab) [address], [place], [address], 08/26/2021 03:56:54 08/25/20 21 08/25/2021 PROLA CTIN prolactin, total 5.91 NG/mL 4.79-2 3.30 This assay was perfo rmed using [employer] reage nts and test kits. Value s obtai galindo with other assay metho ds or kits canno t be used inter moore eably . Not Available [facility] (Lab) [address], [place], [address], 08/26/2021 03:56:55 08/25/20 21 08/25/2021 LH (LUTE NIZIN G HORMO NE) LH 16.3 mIU/m L This assay was perfo rmed using [employer] reage nts and test kits. Value s obtai galindo with other assay metho ds or kits canno t be used inter [facility] . Femal es Mid-F ollic ular: 2.4-1 2.6 mIU/m L Mid-C ycle: 14.0- 95.6 mIU/m L Mid-L uteal : 1.0-1 1.4 mIU/m L Postm enopa use: 7.7-5 8.5 mIU/m L Not Available [facility] (Lab) [address] [place], [address], 08/26/2021 03:56:56 08/25/20 21 08/25/2021 FSH FSH 57.5 mIU/m L This assay was perfo rmed using [employer] reage nts and test kits. Value s obtai galindo with other assay metho ds or kits canno t be used inter [facility] . Femal es Folli cular : 3.5-1 2.5 mIU/m L Ovula tion: 4.7-2 1.5 mIU/m L Lutea l: 1.7-7 .7 mIU/m L Postm enopa use: 25.8- 134.8 mIU/m L Not Available [facility] (Lab) [address] [facility], [place], [address], 08/26/2021 03:56:57 08/25/20 21 08/25/2021 ESTRA DIOL estradiol <5.0 pg/mL This assay was perfo rmed using [employer] reage nts and test kits. Value s obtai galindo with other assay metho ds or kits canno t be used inter [facility] . Femal e Estra diol Range s: Folli cular phase 12.4- 233 pg/mL Ovula tion phase 41.0- 398 pg/mL Lutea l phase 22.3- 341 pg/mL Postm enopa usal< 5-138 pg/mL Healt hy Pregn ant Women 1st Trime ster1 54-32 43 pg/mL 2nd Trime ster1 561-2 1280 pg/mL 3rd Trime ster8 525-> 79473 pg/mL Not Available [facility] (Lab) [address], [place], [address], 08/26/2021 03:56:58 08/25/20 21 08/25/2021 HEMOG LOBIN A1C hemoglobin A1C 6.1 % 0-5.6 high The Ameri can [employer] n recom mends that a prima ry goal of thera py shoul d be a HBA1C of < 7% and that physi cians shoul d reeva luate the treat ment regim en in patie nts with HBA1C value s consi stent ly > 8%. 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 Elect yudymariama camara beckie d by Mariela Cantor , ELSIE on 09/05 at 2:09 PM ----- ----- ----- ----- ----- ----- ----- ----- ----- ----- ----- ----- ----- ----- ----- ----- ----- ---- HPV RESUL TS: HPV mRNA E6/E7 : No HPV mRNA Detec imer NOTE: This high risk HPV mRNA assay detec ts fourt een high- risk HPV types (16, 18, 31, 33, 35, 39, 45, 51, 52, 56, 58, 59, 66, 68) witho ut diffe renti ation . COMME NT: Note: This speci men was revie wed by a Cytot echno logis t and/o r Patho logis t (as indic ated in this repor t) after evalu ation using the Thinp rep Imagi ng Syste m. CLINI CHENG INFOR MATIO N: Menst rual Statu s: LMP (if appli cable ): Clini cheng Histo ry/Pr eviou s Pap: Type of Neopl lamont (if appli cable ): Signi fican t Clini cheng Findi ngs: Other Histo ry: Hormo barby (if appli cable ): PAP EDUCA SAURABH L NOTE: The Pap Test is a scree abran test with an inher ent false negat jamaal rate. Liqui d-bas e sampl ing may decre ase, but will not elimi shandra, false negat jamaal resul ts. A negat jamaal resul t does not precl ude the prese nce and/o r devel opmen t of disea se, since the prese nce of abnor mal cells in the sampl e depen ds on the locat ion of the lesio n and sampl ing techn ique. Liliana nued regul ar scree abran is the best metho d of cance r preve ntion . If repor imer cytol ogic findi ng do not corre late with physi cheng and/o r histo rical findi ngs, tre ridley ion is recom dot d, as clini jesus miramontes nted. Not Available [facility] (Lab) [address], [place], [address], 09/05/2021 15:11:21 04/05/20 23 04/05/2023 CBC W/DIF F WBC 5.4 10'3/ uL 3.6-10 .2 Not Available [facility] (Lab) [address], [place], [address], 04/06/2023 06:43:23 04/05/20 23 04/05/2023 CBC W/DIF F RBC 4.67 10'6/ uL (based on docume nted legal sex) 4.10-5 .30 Not Available [facility] (Lab) [address] [facility], [place], [address], 04/06/2023 06:43:23 04/05/20 23 04/05/2023 CBC W/DIF F HGB 13.6 g/dL (based on docume nted legal sex) 11.9-1 5.8 Not Available [facility] (Lab) [address] [facility] [address] [facility], [place], [address], 04/06/2023 06:43:23 04/05/20 23 04/05/2023 CBC W/DIF F HCT 44.9 % (based on docume nted legal sex) 37.4-4 8.3 Not Available [facility] (Lab) [address] [facility] [address] [facility], [place], [address], 04/06/2023 06:43:23 04/05/20 23 04/05/2023 CBC W/DIF F MCV 96.1 fL 82.0-9 9.0 Not Available [facility] (Lab) [address] [facility], [place], [address], 04/06/2023 06:43:23 04/05/20 23 04/05/2023 CBC W/DIF F MCH 29.1 pg 27.0-3 3.0 Not Available [facility] (Lab) [address], [place], [address], 04/06/2023 06:43:23 04/05/20 23 04/05/2023 CBC W/DIF F MCHC 30.3 g/dL 32.0-3 6.0 low Not Available [facility] (Lab) [address], [place], [address], 04/06/2023 06:43:23 04/05/20 23 04/05/2023 CBC W/DIF F RDW 14.6 % 11.0-1 5.0 Not Available [facility] (Lab) [address], [place], [address], 04/06/2023 06:43:23 04/05/20 23 04/05/2023 CBC W/DIF F plt 247 10'3/ uL 150-45 0 Not Available [facility] (Lab) [address], [place], [address], 04/06/2023 06:43:23 04/05/20 23 04/05/2023 CBC W/DIF F MPV 10.9 fL 9.8-12 .7 Not Available [facility] (Lab) [address], [place], [address], 04/06/2023 06:43:23 04/05/20 23 04/05/2023 CBC W/DIF F NRBC's 0.0 % 0 Not Available [facility] (Lab) [address], [place], [address], 04/06/2023 06:43:23 04/05/20 23 04/05/2023 CBC W/DIF F absolute NRBCs 0.0 10'3/ uL 0 Not Available [facility] (Lab) [address], [place], [address], 04/06/2023 06:43:23 04/05/20 23 04/05/2023 CBC W/DIF F neutrophils 53.4 % 37.0-7 2.0 Not Available [facility] (Lab) [address], [place], [address], 04/06/2023 06:43:23 04/05/20 23 04/05/2023 CBC W/DIF F lymphocytes 37.3 % 16.0-4 8.0 Not Available [facility] (Lab) [address], [place], [address], 04/06/2023 06:43:23 04/05/20 23 04/05/2023 CBC W/DIF F monocytes 6.9 % 4.0-14 .0 Not Available [facility] (Lab) [address], [place], [address], 04/06/2023 06:43:23 04/05/20 23 04/05/2023 CBC W/DIF F eosinophils 1.1 % 0.0-9. 0 Not Available [facility] (Lab) [address], [place], [address], 04/06/2023 06:43:23 04/05/20 23 04/05/2023 CBC W/DIF F basophils 1.1 % 0.0-2. 0 Not Available [facility] (Lab) [address] [place], [address], 04/06/2023 06:43:23 04/05/20 23 04/05/2023 CBC W/DIF F immature granulocytes 0.2 % no define d refere nce range Not Available [facility] (Lab) [address] [place], [address], 04/06/2023 06:43:23 04/05/20 23 04/05/2023 CBC W/DIF F absolute neutrophils 2.9 10'3/ uL 1.1-6. 0 Not Available [facility] (Lab) [address] [place], [address], 04/06/2023 06:43:23 04/05/20 23 04/05/2023 CBC W/DIF F absolute lymphocytes 2.0 10'3/ uL 0.7-3. 4 Not Available [facility] (Lab) [address] [facility], [place], [address], 04/06/2023 06:43:23 04/05/20 23 04/05/2023 CBC W/DIF F absolute monocytes 0.4 10'3/ uL 0.3-1. 0 Not Available [facility] (Lab) [address] [facility], [place], [address], 04/06/2023 06:43:23 04/05/20 23 04/05/2023 CBC W/DIF F absolute eosinophils 0.1 10'3/ uL 0.0-0. 6 Not Available [facility] (Lab) [address], [place], [address], 04/06/2023 06:43:23 04/05/20 23 04/05/2023 CBC W/DIF F absolute basophils 0.1 10'3/ uL 0.0-0. 1 Not Available [facility] (Lab) [address], [place], [address], 04/06/2023 06:43:23 04/05/20 23 04/05/2023 CBC W/DIF F absolute immature granulocytes 0.0 10'3/ uL 0.00-0 .10 2022 3:37 AM: P indic ates parti al resul ts on a panel have been relea sed. Addit ional resul ts will follo w. 2022 3:37 AM: This resul t has been final verif ied. No addit ional or moore ed resul ts are expec imer. Not Available [facility] (Lab) [address], [place], [address], 04/06/2023 06:43:23 04/05/20 23 04/05/2023 HEMOG LOBIN A1C hemoglobin A1C 6.1 % 0-5.6 high [facility] recom mends that a prima ry goal of thera py sonya sarabia be a HBA1C of < 7% and that physi cians shoul d reeva luate the treat ment regim en in patie nts with HBA1C value s consi stent ly > 8%. <5.7% Jillian l 5.7 - 6.4% Incre ased risk for diabe yumiko >=6.5 % Diagn ostic of diabe yumiko <7.0% Goal of thera py >8.0% Actio n sugge sted Not Available [facility] (Lab) [address], [place], [address], 04/06/2023 06:43:24 04/05/20 23 04/05/2023 LIPID PANEL ,AMA (LDL- CALC) total cholesterol 224 mg/dL 0-199 high Not Available [facility] (Lab) [address], [place], [address], 04/06/2023 06:43:24 04/05/20 23 04/05/2023 LIPID PANEL ,AMA (LDL- CALC) triglyceride s 301 mg/dL 0.00-1 50.00 high NCEP Refer ence Value s for Trigl yceri adriane: Jillian l: <150 mg/dL Borde rline High: 150 - 199 mg/dL High: 200 - 499 mg/dL Very High: >/= 500 mg/dL Not Available [facility] (Lab) [address], [place], [address], 04/06/2023 06:43:24 04/05/20 23 04/05/2023 LIPID PANEL ,AMA (LDL- CALC) HDL cholesterol 51 mg/dL >40 Not Available [facility] (Lab) [address] [place], [address], 04/06/2023 06:43:24 04/05/20 23 04/05/2023 LIPID PANEL ,AMA (LDL- CALC) LDL cholesterol 130 mg/dL 0-99 high Cutof f value s recom dot d by the Natio nal Akila stero l Educa tion Progr am: FOZIA ABLE: Akila stero l <200 mg/dL LDL <100 mg/dL BORDE RLINE : Akila stero l 200-2 39 mg/dL LDL 101-1 59 mg/dL HIGHE R RISK: Akila stero l >240 mg/dL LDL >160 mg/dL , HDL <40 mg/dL Not Available [facility] (Lab) [address], [place], [address], 04/06/2023 06:43:24 04/05/2004/05/2023 LIPID PANEL ,AMA (LDL- CALC) non-HDL cholesterol 173 mg/dL no refere nce range A reaso nable goal for non-H DL akila stero l is one that is 30 mg/dL highe r than the LDL akila stero l goal. Not Available [facility] (Lab) [address], [place], [address], 04/06/2023 06:43:24 04/05/2004/05/2023 LIPID PANEL ,AMA (LDL- CALC) chol/HDL ratio 4.4 . 0.0-5. 0 On January 02, 2023, [facility] labor atori es oscar ed the equat ion for calcu latin g estim ated low-d ensit y lipop rotei n-cho leste rol (LDL- C) from the Carloz laird equat ion to the Rocio rosen/Kaity hackett equat ion. This new equat ion is only valid for lipid panel s with trigl yceri adriane < 400 mg/dL . Studi es have demon strat ed that this new equat ion will impro ve the accur acy of LDL-C , espec ially in scena wei when LDL-C lonny ntrat ions are relat ively low (< 100 mg/dL ), trigl yceri adriane are eleva imer, or patie nt is non-f astin g. Refer ences : - Hang Matute, Bry Nichols , Amber william, Chad Nunez, Chad renee, Abram ravi , and Micheal Cho . 2013. Comp ariso n of a Novel Metho d vs the Fried eitan Equat ion for Estim ating Low-D ensit y Lipop rotei n Akila stero l Level s from the Stand tri Lipid Profsade reynolds. JOEY: The Journ al of the Ameri can Medic al Assoc iatio n 310 (19): 2060- . - Jimmy terrazas V, Kari J, Mike terrazas A, Xiomara M, Caitlyn perry R, Florian terrazas E, Josefina ravi RS, Marquis SR, Rocio rosen SS. Fast ing Versu s Nonfa sting and Low-D ensit y Lipop rotei n Akila stero l Accur acy. Circu latio n. 2017Sep 11;137 (1):1 0-19. Not Available [facility] (Lab) [address] [place], [address], 04/06/2023 06:43:24 04/05/20 23 04/05/2023 CMP(C OMPRE HENSI VE METAB OLIC PANEL ) sodium 143 mmol/ L 133-14 6 Not Available [facility] (Lab) [address] [place], [address], 04/06/2023 06:43:25 04/05/20 23 04/05/2023 CMP(C OMPRE HENSI VE METAB OLIC PANEL ) potassium 3.5 mmol/ L 3.5-5. 1 Not Available [facility] (Lab) [address] [place], [address], 04/06/2023 06:43:25 04/05/20 23 04/05/2023 CMP(C OMPRE HENSI VE METAB OLIC PANEL ) chloride 106 mmol/ L 98-107 Not Available [facility] (Lab) [address] [place], [address], 04/06/2023 06:43:25 04/05/20 23 04/05/2023 CMP(C OMPRE HENSI VE METAB OLIC PANEL ) carbon dioxide 27 mmol/ L 21-31 Not Available [facility] (Lab) [address], [place], [address], 04/06/2023 06:43:25 04/05/20 23 04/05/2023 CMP(C OMPRE HENSI VE METAB OLIC PANEL ) anion gap 10 mmol/ L 4-13 Not Available [facility] (Lab) [address], [place], [address], 04/06/2023 06:43:25 04/05/20 23 04/05/2023 CMP(C OMPRE HENSI VE METAB OLIC PANEL ) blood urea nitrogen 12 mg/dL 7-25 Not Available [facility] (Lab) [address], [place], [address], 04/06/2023 06:43:25 04/05/20 23 04/05/2023 CMP(C OMPRE HENSI VE METAB OLIC PANEL ) creatinine 0.68 mg/dL 0.60-1 .30 Not Available [facility] (Lab) [address], [place], [address], 04/06/2023 06:43:25 04/05/20 23 04/05/2023 CMP(C OMPRE HENSI VE METAB OLIC PANEL ) egfrcr (CKD-epi 2020) >90 mL/mi n/1.7 3_m2 >=60 Not Available [facility] (Lab) [address], [place], [address], 04/06/2023 06:43:25 04/05/20 23 04/05/2023 CMP(C OMPRE HENSI VE METAB OLIC PANEL ) calcium 8.9 mg/dL 8.3-10 .5 Not Available [facility] (Lab) [address], [place], [address], 04/06/2023 06:43:25 04/05/20 23 04/05/2023 CMP(C OMPRE HENSI VE METAB OLIC PANEL ) glucose 106 mg/dL 70-100 high Not Available [facility] (Lab) [address], [place], [address], 04/06/2023 06:43:25 04/05/20 23 04/05/2023 CMP(C OMPRE HENSI VE METAB OLIC PANEL ) protein, total 6.6 g/dL 6.4-8. 3 Not Available [facility] (Lab) [address], [place], [address], 04/06/2023 06:43:25 04/05/20 23 04/05/2023 CMP(C OMPRE HENSI VE METAB OLIC PANEL ) albumin 4.1 g/dL 3.5-5. 0 Not Available [facility] (Lab) [address], [place], [address], 04/06/2023 06:43:25 04/05/20 23 04/05/2023 CMP(C OMPRE HENSI VE METAB OLIC PANEL ) ALT 20 units /L 9-43 Not Available [facility] (Lab) [address], [place], [address], 04/06/2023 06:43:25 04/05/20 23 04/05/2023 CMP(C OMPRE HENSI VE METAB OLIC PANEL ) alkaline phosphatase 77 units /L 34-104 Not Available [facility] (Lab) [address] [place], [address], 04/06/2023 06:43:25 04/05/20 23 04/05/2023 CMP(C OMPRE HENSI VE METAB OLIC PANEL ) AST 14 units /L 13-39 Not Available [facility] (Lab) [address] [place], [address], 04/06/2023 06:43:25 04/05/20 23 04/05/2023 CMP(C OMPRE HENSI VE METAB OLIC PANEL ) bilirubin, total 0.3 mg/dL 0.2-1. 2 Not Available [facility] (Lab) [address] [place], [address], 04/06/2023 06:43:25 04/05/20 23 04/05/2023 T4 FREE T4, free 0.74 NG/dL 0.60-1 .40 Not Available [facility] (Lab) [address], [place], [address], 04/06/2023 06:43:25 04/05/20 23 04/05/2023 TSH, REFLE X FREE T4 TSH 7.44 uIU/m L 0.30-5 .33 high Not Available [facility] (Lab) [address], [place], [address], 04/06/2023 06:43:26 04/05/20 23 04/05/2023 FSH, LH, ESTRA DIOL estradiol 17.7 pg/mL This assay was perfo rmed using [employer] ratio n reage nts and test kits. Value s obtai galindo with other assay metho ds or kits canno t be used inter moore eably . Femal e Estra diol Range s: Folli cular phase 12.4- 233 pg/mL Ovula tion phase 41.0- 398 pg/mL Lutea l phase 22.3- 341 pg/mL Postm enopa usal< 5-138 pg/mL Healt hy Pregn ant Women 1st Trime ster1 54-32 43 pg/mL 2nd Trime ster1 561-2 1280 pg/mL 3rd Trime ster8 525-> 74330 pg/mL Not Available [facility] (Lab) [address], [place], [address], 04/06/2023 06:43:26 04/05/20 23 04/05/2023 FSH, LH, ESTRA DIOL FSH 41.3 mIU/m L This assay was perfo rmed using [employer] reage nts and test kits. Value s obtai galindo with other assay metho ds or kits canno t be used inter moore eably . Femal es Folli cular : 3.5-1 2.5 mIU/m L Ovula tion: 4.7-2 1.5 mIU/m L Lutea l: 1.7-7 .7 mIU/m L Postm enopa use: 25.8- 134.8 mIU/m L Not Available [facility] (Lab) [address] , [place], [address], 04/06/2023 06:43:26 04/05/20 23 04/05/2023 FSH, LH, ESTRA DIOL LH 18.4 mIU/m L This assay was perfo rmed using [employer] n reage nts and test kits. Value s obtai galindo with other assay metho ds or kits canno t be used inter moore eably . Femal es Mid-F ollic ular: 2.4-1 2.6 mIU/m L Mid-C ycle: 14.0- 95.6 mIU/m L Mid-L uteal : 1.0-1 1.4 mIU/m L Postm enopa use: 7.7-5 8.5 mIU/m L Not Available [facility] (Lab) [address], [place], [address], 04/06/2023 06:43:26 04/05/20 23 04/05/2023 VITAM IN D, 25-OH (TOTA L D2/D3 ) vitamin D, 25-hydroxy, total 24.9 NG/mL 30.0-1 00.0 low Sugge stive of Defic iency : <20 ng/mL Sugge stive of Insuf ficie ncy: 20-29 ng/mL Sugge stive of Suffi cienc y: 30-10 0 ng/mL Sugge stive of Toxic ity: >150 ng/mL Not Available [facility] (Lab) [address], [place], [address], 04/06/2023 06:43:26 09/15/19 22 09/15/2021 US, darrian hurtado No observ ation record ed. [email or web address] [facility] [address], [place], [address], 09/15/2021 10:21:29 09/15/19 22 09/15/2021 US, trans vagin al No observ ation record ed. [email or web address] [facility] [address], [place], [address], 09/15/2021 10:21:41 09/15/19 22 09/15/2021 US, pelvi s No observ ation record ed. layran [address], [place], [address], 09/27/2021 13:30:24 02/01/20 22 01/31/2022 MAMMO , diagn ostic , digit al, bilat eral No observ ation record ed. [email or web address] [facility] [address], [place], [address], 03/12/2023 15:35:07 05/24/20 23 05/24/2023 MAMMO , scree abran, bilat eral No observ ation record ed. [facility] [address], [place], [address], 07/03/2023 18:06:11 06/06/20 24 06/04/2024 imagi ng/di agnos tic resul t No observ ation record ed. [facility] [address], [place], [address], 07/03/2024 03:32:09 Result Notes None recorded. Problems Name Problem SNOMED Code Status Onset Date Resolution Date Notes Provider Name and Address Organization Details Recorded Time Finding of contents of cervix [id number] Completed 201408/24/2021 Weeks of gestatio n of pregnanc y not specifie d;Record ed Elsewher e: No Locat ion: Rebel perry [facility] S ource: EHR Vice President Media Relations matt: N Practi ce ID: 0001 Daryl lable Time: 02:45:00 PM Chasidy Washington [place], [place] - [facility] 1 16:25:32 Pregnanc y, childbir th and puerperi um finding Completed 201508/24/2021 Encounte r for supervis ion of normal first pregnanc y, third trimeste r;Record ed Elsewher e: No Locat ion: [facility] S ource: EHR Vice President Media Relations matt: N Practi ce ID: 0001 Daryl lable Time: 03:30:00 PM Chasidy Washington [facility] 16:25:59 Screenin g for malignan t neoplasm of cervix Completed 201408/24/2021 Encounte r for screenin g for malignan t neoplasm of cervix;R ecorded Elsewher e: No Locat ion: [facility] S ource: EHR Vice President Media Relations matt: N Practi ce ID: 0001 Daryl lable Time: 03:00:00 PM Chasidy Washington [facility], [facility] 16:26:01 Gestatio nal diabetes mellitus [id number] Completed 201508/24/2021 Gestatio nal diabetes mellitus in pregnanc y, diet controll ed;Recor ded Elsewher e: No Locat ion: [facility] S ource: EHR Vice President Media Relations matt: N Practi ce ID: 0001 Daryl lable Time: 03:00:00 PM Chasidy Washington [facility] 16:25:47 Congenit al anomaly of neck [id number] Completed 201408/24/2021 Medial cyst of neck;Rec orded Elsewher e: No Locat ion: [facility] S ource: EHR Vice President Media Relations matt: N Practi ce ID: 0001 Daryl lable Time: 01:00:00 PM Chasidy Washington [facility] 16:25:25 Congenit al anomaly of face [id number] Completed 201408/24/2021 Medial cyst of neck;Rec orded Elsewher e: No Locat ion: [facility] S ource: EHR Vice President Media Relations matt: N Practi ce ID: 0001 Daryl lable Time: 01:00:00 PM Chasidy Washington [facility] 16:25:[address] Concept Completed 201508/24/2021 Encntr for general adult medical exam w/o abnormal findings ;Recorde d Elsewher e: No Locat ion: [facility] vicky [facility] S ource: EHR Vice President Media Relations matt: N Practi ce ID: 0001 Daryl lable Time: 08:15:00 AM Chasidy Washington [facility] 16:26:05 Pregnanc y detectio n examinat ion Completed 201408/24/2021 Encounte r for pregnanc y test, result positive ;Recorde d Elsewher e: No Locat ion: [facility] S ource: EHR Vice President Media Relations matt: N Practi ce ID: 0001 Daryl lable Time: 03:00:00 PM Chasidy Washington [facility] 16:25:55 Syphilis test finding [id number] Completed 201408/24/2021 Encntr screen for infectio ns w sexl mode of transmis s;Record ed Elsewher e: No Locat ion: [facility] vicky [facility] S ource: EHR Vice President Media Relations matt: N Practi ce ID: 0001 Daryl lable Time: 03:00:00 PM Chasidy Washington [facility] 16:26:08 Gestatio n period, 12 weeks [id number] Completed 201408/24/2021 12 weeks gestatio n of pregnanc y;Record ed Elsewher e: No Locat ion: [facility] vicky [facility] S ource: EHR Vice President Media Relations matt: N Practi ce ID: 0001 Daryl lable Time: 02:45:00 PM Chasidy Washington [facility] 16:25:[address] Concept Completed 201408/24/2021 Encntr for x ray equipment tester exam (general ) (routine ) w/o abn findings ;Practic e ID: 0001 Chasidy machuca, [facility] 16:26:06 Infectio n screenin g Completed 201408/24/2021 Encounte r for screenin g for oth infec/pa rastc diseases ;Practic e ID: 0001 Chasidy machuca, [facility] 16:25:48 Antenata l care: multipar ous, older than 35 years [id number] Completed 201408/24/2021 Supervis ion of elderly multigra salvador, first trimeste r;Practi ce ID: 0001 Chasidy Washington [facility] 16:25:22 Gestatio n period, 13 weeks [id number] Completed 201408/24/2021 13 weeks gestatio n of pregnanc y;Practi ce ID: 0001 Chasidy Washington [facility] 16:25:36 Normal pregnanc y in multigra salvador [id number] Completed 201408/24/2021 Encounte r for suprvsn of normal pregnanc y, first trimeste r;Practi ce ID: 0001 Chasidy machuca, [facility] 16:25:53 Epidermo id cyst [id number] Completed 201408/24/2021 Epiderma l cyst;Pra ctice ID: 0001 [facility] 16:25:31 Pregnanc y, childbir th and puerperi um finding Completed 201508/24/2021 Encntr for suprvsn of normal first preg, second trimeste r;Practi ce ID: 0001 Chasidy machuca [facility] 16:25:58 Gestatio n period, 32 weeks [id number] Completed 201508/24/2021 32 weeks gestatio n of pregnanc y;Practi ce ID: 0001 Chasidy Washington [facility], [facility] 16:25:37 Diet educatio n Completed 201508/24/2021 Dietary counseli ng and surveill ance;Pra ctice ID: 0001 Chasidy Washington [facility], [facility] 16:25:27 Dietary manageme nt surveill ance Completed 201508/24/2021 Dietary counseli ng and surveill ance;Pra ctice ID: 0001 Chasidy Washington [facility], [facility] 16:25:29 Gestatio n period, 33 weeks [id number] Completed 201508/24/2021 33 weeks gestatio n of pregnanc y;Practi ce ID: 0001 Chasidy Washington [facility], [facility] 16:25:39 Gestatio n period, 34 weeks [id number] Completed 201508/24/2021 34 weeks gestatio n of pregnanc y;Practi ce ID: 0001 Chasidy Washington [facility], [facility] 16:25:40 Gestatio n period, 35 weeks [id number] Completed 201508/24/2021 35 weeks gestatio n of pregnanc y;Practi ce ID: 0001 Chasidy Washington [facility], [facility] 16:25:42 Pregnanc y test negative [id number] Completed 201508/24/2021 Encounte r for pregnanc y test, result negative ;Recorde d Elsewher e: No Locat ion: Rebel perry [facility] S ource: EHR Vice President Media Relations matt: N Practi ce ID: 0001 Daryl lable Time: 09:30:00 AM Chasidy Washington [facility], [facility] 16:25:56 Gestatio n period, 37 weeks [id number] Completed 201508/24/2021 37 weeks gestatio n of pregnanc y;Record ed Elsewher e: No Locat ion: Rebel perry [facility] S ource: EHR Vice President Media Relations matt: N Jemalti ce ID: 0001 Daryl lable Time: 03:00:00 PM Chasidy Washington [facility], [facility] 16:25:45 Abscess of face [id number] Completed 201408/24/2021 Cutaneou s abscess of face;Rec orded Elsewher e: No Locat ion: Rebel perry [facility] S ource: EHR Vice President Media Relations matt: N Jemalti ce ID: 0001 Daryl lable Time: 01:00:00 PM Chasidy Washington [facility], [facility] 16:25:20 Lochia finding Completed 201508/24/2021 Encounte r for routine postpart um follow-u p;Record ed Elsewher e: No Locat ion: [facility] S ource: EHR Vice President Media Relations matt: N Hugh ce ID: 0001 Daryl lable Time: 09:30:00 AM Chasidy machuca, [facility] 16:25:51 Gestatio n period, 36 weeks [id number] Completed 201508/24/2021 36 weeks gestatio n of pregnanc y;Record ed Elsewher e: No Locat ion: [facility] S ource: EHR Vice President Media Relations matt: N Hugh ce ID: 0001 Daryl lable Time: 03:00:00 PM Chasidy Washington [facility] 16:25:44 Lacerati on of female perineum Completed 201508/24/2021 First degree perineal lacerati on during delivery ;Practic e ID: 0001 Chasidy Washington [facility] 16:25:50 Single live from zaido n pregnanc y [id number] Completed 201508/24/2021 Single live ;Pr actice ID: 0001 [facility] 16:26:03 Problem Notes None recorded. Procedures Surgical History Date Name Laterality Status Provider Name and Address Organization Details Recorded Time Date of Last Pap Smear completed [facility] 09/22/2021 13:18:41 procedure on knee completed [facility] 08/25/2021 12:14:36 procedure on upper arm completed [facility] 08/25/2021 12:15:25 Other completed [facility] 09/22/2021 13:18:11 Imaging Results None recorded. Procedure Notes None recorded. Medical Equipment None Reported. Allergies No known drug allergies Medications Name Sig Start Date Stop Date Status Note LastModified by Organization Details LastModified Time Aviane 0.1 mg-20 mcg tablet take 1 tablet by oral route every day 08/25 completed Prescrib ed Elsewher e: No Locat ion: [facility] odify By: savannah oseguera DateTime : 07/12/20 16 12:51:32 PM Not Available Not Available Not Available Synthroid 25 mcg tablet take 1 tablet by oral route every day 03/03 completed Prescrib ed Elsewher e: No Locat ion: [facility] odify By: [email or web address] trick En counter DateTime : 01/17/20 16 04:00:00 PM Not Available Not Available Not Available levofloxa kane 500 mg tablet 08/25 completed Not Available Not Available Not Available Vitamin D2 1,250 mcg (50,000 unit) capsule take 1 capsule by oral route every week 03/03 completed Prescrib ed Elsewher e: No Locat ion: [facility] odify By: [email or web address] trick En counter DateTime : 12/09/19 16 09:28:08 AM Not Available Not Available Not Available norethind tika (contrace ptive) 0.35 mg tablet take 1 tablet by oral route every day 07/06 completed Prescrib ed Elsewher e: No Locat ion: [facility] odify By: reji tz Encou nter DateTime : 04/13/20 16 02:02:32 PM Not Available Not Available Not Available clindamyc in phosphate 1 % topical solution 08/25 completed Not Available Not Available Not Available Centrum 3,500 unit-18 mg-0.4 mg chewable tablet 2014 active Prescrib ed Elsewher e: Yes Loca tion: [facility] odify By: aydee fermin DateTime : 07/01/20 03:00:00 PM Not Available Not Available Not Available ID NOW COVID-19 Test Kit TEST DIRECTED TODAY 04/02 completed Not Available Not Available Not Available Vitals Date Recorded Body height Body mass index (BMI) Body weight Systolic And Diastolic Provider Name and Address Organization Details Last Updated DateTime 09/22/2021 151.13 cm 33.4 kg/m2 54822.52 g 120/82 mm[Hg] Chasidy Washington [facility] 09/22/2021 13:18:06 Date Recorded Body height Body mass index (BMI) Body weight Systolic And Diastolic Provider Name and Address Organization Details Last Updated DateTime 04/02/2023 151.13 cm 34.3 kg/m2 24107.76 g 134/89 mm[Hg] Raya Johnson [facility] 04/02/2023 09:43:00 Date Recorded Systolic And Diastolic Provider Name and Address Organization Details Last Updated DateTime 08/25/2021 126/82 mm[Hg] Ines Decker, SHIMA- [address], [place], [address], [facility] 08/25/2021 12:36:26 Date Recorded Body height Body mass index (BMI) Body weight Provider Name and Address Organization Details Last Updated DateTime 08/25/2021 151.13 cm 33.4 kg/m2 84904.52 g Chasidy Felix [facility] 08/25/2021 12:11:52 Social History Question Answer Notes LastModified by Organizat ion Details LastModified Time Do You Have An Advance Directive? No Information n ot available 08/25/2021 How Many Years Have You Consumed Alcohol? 9 Information not available 08/25/2021 Are You Blind Or Do You Have Difficulty Seeing? No Information not available 08/25/2021 What Is Your Level Of Caffeine Consumption? None Information not available 08/25/2021 How Much Tobacco Do You Chew? None Information not available 08/25/2021 In The 14 Days Before Symptom Onset, Have You Had Close Contact With A Laboratory-confirme d COVID-19 While That Case Was Ill? No Information n ot available 08/25/2021 In The 14 Days Before Symptom Onset, Have You Had Close Contact With A Person Who Is Under Investigation For COVID-19 While That Person Was Ill? No Information not available 08/25/2021 Have You Been To An Area Known To Be High Risk For COVID-19? No Information not available 08/25/2021 Are You Deaf Or Do You Have Serious Difficulty Hearing? No Information not available 08/25/2021 What Type Of Diet Are You Following? REGULAR Information n ot available 08/25/2021 What Is The Highest Grade Or Level Of School You Have Completed Or The Highest Degree You Have Received? [id number] Information not available 08/25/2021 Are There Any Guns Present In Your Home? Yes Information not available 08/25/2021 Do You Use Protection During Sex? No Information not available 08/25/2021 Do You Use Your Seat Belt Or Car Seat Routinely? Yes Information not available 08/25/2021 Do You Have Smoke And Carbon Monoxide Detectors In Your Home? Yes Information not available 08/25/2021 How Much Tobacco Do You Smoke? No Information not available 08/25/2021 Do You Use Sunscreen Routinely? Yes Information not available 08/25/2021 Have You Used IV Drugs? No Information not available 08/25/2021 Do You Have Difficulty Walking Or Climbing Stairs? No Information not available 04/02/2023 Sex: Unknown Functional Status Question Answer Note LastModified by Organizat ion Details LastModified Time Do you use any illicit or recreational drugs? No Information not available 08/25/2021 What is your level of alcohol consumption? Occasional Information not available 08/25/2021 Are you able to walk? YESWOREST Information not available 08/25/2021 Are you able to care for yourself? 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 No Information not available 04/02/2023 What is your exercise level? Occasional Information not available 08/25/2021 Mental Status Question Answer Note LastModified by Organization D etails LastModified Time Do you feel stressed (tense, restless, nervous, or anxious, or unable to sleep at night)? [id number] Information not available 08/25/2021 Family History Relationship Description Onset Age of this Age Resolved Age Notes LastModified by Organization Details LastModified Time Mother Diabetes mellitus Not available 2020 12:14:07 Father Diabetes mellitus Not available 2020 12:14:07 Medical History Condition Response Allergies (Food, seasonal, environmental ) N Other N Drug/Latex Allergies/Reactions N Breast Cancer N Blood Transfusion N Dermatologic Disorders N Lung Disease N Defects or Inherited Disease N Breast Problem N Gestational Diabetes N Hematologic disorders N Anesthesia Complications N History of STI N Deep Vein Thrombosis N Polycystic ovary syndrome N Anxiety Disorder N Autoimmune disease N Arthritis N Polyps N Infertility N Acid Reflux (GERD) N History of abnormal pap N Cancer N Varicosities N Stroke N Neurologic/Epilepsy N Endometriosis N High Cholesterol N Fibromyalgia N Headaches N Kidney Disease N Heart Problems N Thyroid Problems N Kidney or Bladder Problems N GI Problems N Eating Disorder N Anemia N Art (IVF or FET) N Psychiatric Illness N Ovarian Cancer N Diabetes N Pulmonary (TB, Asthma) N Hepatitis/Liver Disease N No Past Medical History N Eczema N Urinary Tract Infection N Abuse/Domestic Violence N Asthma N Trauma/Violence N Depression/ depression N Heart Disease N Pre-Eclampsia N Hypertension N Osteoporosis N Thrombophilias N Gynecological History Statement/Question Response Date of LMP 06/01/2022 On BCP's at Conception? N N STIs/STDs N Was last menstrual period normal Y HPV Vaccine N Current Control Method None Are cycles usually normal N Sexually Active? Y Menses Monthly N Age of first menstrual cycle 17 Date of Last Pap Smear 08/25/2021 Sexual Problems? N LMP Approximate N Obstetrics History GPAL:G 1 P 0 0 0 1 Type Value Living 1 Total 1 Past Encounters Encounter ID Performer Location Encounter Start Date Encounter Closed Date Diagnosis/Indication Diagnosis SNOMED-CT Code Diagnosis ICD10 Code Diagnosis Note [id number] Ines Decker , [facility] [address] [address] 08/25/2021 11:45:38 08/25/2021 13:13:58 Gynecologic examination 93988725 Z01.419 Suggested Calcium with Vitamin D 1200-1500m g daily. Patient advised to get an annual flu shot in the fall and she could obtain at [facility] or [facility]. Also to obtain TDap vaccinatio n if you have not had one in the last 10 years. Recommend yearly mammograms . Encouraged monthly self breast exams. Encourage safe sexual practices, to use condoms and limit partners if not already in a monogamous relationsh ip. Engage in daily exercise of low impact aerobic exercise 45-60 minutes 4-5 times weekly. Avoid tobacco and illicit drugs as well as using moderation with alcohol intake less than 1-2 8 oz beverages daily. This lifestyle behavior pattern will lead to less health conditions and longer life span. If BMI greater than 25 weight watchers or dietary consult advised. All questions have been answered. Patient appears to understand informatio n, but if you have any questions please call or respond to this email.Pap/ hpv updatedSTD declinedMo nogamousMa mmo orderedGen [facility] screen discussed Screening mammography of bilateral breasts 8804969124 10646 Z12.31 Never had mammo.Revi ewed screening with understand ing reviewed. Irregular periods 477187 [id number] N92.6 Irregular cycles over 2019.No cycle x 9mos then light cycle in 08/2021.We agreed to update TVUS & labs.Will f/u to discuss. [id number] Jodri Lopez MD [facility] [address],[place] [address] 09/15/2021 09:35:31 09/15/2021 10:31:00 Irregular periods [id number] N92.6 [id number] [facility] [address],[place] [address] 09/22/2021 13:07:09 09/22/2021 15:35:32 Perimenopausal disorder [id number] N95.9 After review of results we agreed to keep menstrual diary and monitor as these seem to reflect perimenopa use stage.We reviewed changes that would warrant further evaluation with understand ing verbalized .Not interested in methods that promote period regulation at this point.We can R/P FSH/LH in 3mos-6mos if menstrual cycle absent to see what these reflect at that time. Time spent in visit is a total of 15 mins with at least 50% of visit consisting of counseling and review of plan of care. Additional precaution anabel measures were taken to minimize potential exposure to the Covid-19 virus during this patient s visit, including available hand crime lab analyst upon arrive, temperatur e check and being asked a series of screening questions. All staff wore face coverings during this encounter, as well as provided additional cleaning and sanitizing of all surfaces, including counte-rto ps, pens, chairs, door handles, light switches, etc, prior to and following the patient s visit. [id number] Leslie Dorsey SHIMA [facility] [address],[place] [address] 04/02/2023 09:16:18 04/02/2023 10:19:51 Gynecologic examination [id number] Z01.419 Suggested Calcium with Vitamin D 1200-1500m g daily. Patient advised to get an annual flu shot in the fall and she could obtain at [facility] or [facility] care clinic. Also to obtain TDap vaccinatio n if you have not had one in the last 10 years. Recommend yearly mammograms . Encouraged monthly self breast exams. Encourage safe sexual practices, to use condoms and limit partners if not already in a monogamous relationsh ip. Engage in daily exercise of low impact aerobic exercise 45-60 minutes 4-5 times weekly. Avoid tobacco and illicit drugs as well as using moderation with alcohol intake less than 1-2 8 oz beverages daily. This lifestyle behavior pattern will lead to less health conditions and longer life span. If BMI greater than 25 weight watchers or dietary consult advised. All questions have been answered. Patient appears to understand informatio n, but if you have any questions please call or respond to this email. Kush scales, reviewed the perimenopa usal transition . Continue to track cycles.no hx of abnormal papslast pap 08/2021 - normalpap due testing declinedma mmogram is scheduledf asting labs orderedRTC in 1 year or sooner if needed Adult heal th examination [id number] Z00.00 Perimenopausal state 946 [id number] 51560 Z78.0 Diarrhea 49927289 R19.7 GI referral sent for further evaluation of diarrheake ep food log to identify triggers Health Concerns Section Related Observation LastModified by Organization Detai ls LastModified Time None Recorded Concern Status LastModified by Organization Details LastModified Time None Recorded Advance Directives Directive N: Payers Encounter Date Sequence Insurance Name Policy Number Policy Gong Covered Member ID Gong Member ID Guarantor Name 08/25/2021 1 [facility] [id number] Nava Lee [id number] Nava Lee 09/15/2021 1 [facility] [id number] Nava Lee [id number] Nava Lee 09/22/2021 1 [facility] [id number] Nava Lee [id number] Nava Lee 04/02/2023 1 [facility] [id number] Nvaa Lee [id number] Nava Lee Notes Date Note Type Note Provider Name and Address Organization Details Recorded Time 08/25/2021 text/html Annual GYNReport ed bypatient.Menstrua l cycle:Irregular cycle intervals Urinary symptoms:No hematuria; No incontinence Vulva:No genital lesion Vagina:Normal vaginal discharge Breast:No breast pain; No breast lump; No nipple discharge Current Contraception:Sati sfied with current contraception; Monogamous relationship; Condoms; Withdrawal method Sexual complaints:No sexual complaints; No pain during intercourse; Normal libido Menopausal Symptoms:No menopausal symptoms; Normal vaginal lubrication Psychological symptoms:No depression; No anxiety; No PMDD Preventive measures:Encourage self breast examination; Encourage regular exercise; Encourage no tobacco use; Encourage regular mammograms starting age 40; Followed with Q3 year pap smear and high risk HPV typing; Needs to schedule mammogram JES Randall- [address], [place], [address], , [facility] 08/25/2021 12:37:46 09/22/2021 text/html Here today for review of lab & US results. TALON Randall [address], [place], [address], , [facility] 09/22/2021 14:30:48 04/02/2023 text/html Annual GYNReport ed bypatient.Menstrua l cycle:Perimenopaus al; LMP : 06/01/2022 Urinary symptoms:No hematuria; No incontinence Vulva:No genital lesion Vagina:Normal vaginal discharge Breast:No breast pain; No breast lump; No nipple discharge Current Contraception:Tyler h control not practiced Sexual complaints:No sexual complaints; No pain during intercourse; Normal libido Menopausal Symptoms:No menopausal symptoms; Normal vaginal lubrication Psychological symptoms:No depression; No anxiety; No PMDD Preventive measures:Encourage self breast examination; Encourage regular exercise; Encourage no tobacco use; Encourage regular mammograms starting age 40; Needs to schedule mammogram; Needs to schedule colonoscopy JES Blanco [address], [place], [address], , [facility] 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 Status 08/25/20 21 1 CLOSED Fetus Data First Name Last Name Admitted to NICU Weight (g) Sex Living Outcome Pediatric Complications Fetus ID Race Codes Race Delivery Type F Full Term [id number] Vaginal Delivery Bernardo Calculation Initial Bernardo Date Initial Exam Date Initial Exam Provider Initial Ultrasound Date Last Menstrual Period Date Ultra Sound Weeks Gestation 0 Eighteen To Twenty Week Bernardo Update Ultra Sound Date Fundal Height At Umbil Quickening Date Ultra Sound Latest Weeks Gestation Final Bernardo Confirmed By Final Bernardo Confirmed Date Final Bernardo Date Ultra Sound Latest Days Gestation 0 0 Menstrual History Last Menstrual Date Menses Monthly On Bcp Conception Prior Menses Frequency Hcg Plus Date Menarche Onset Age Delivery Information Delivery Date Delivery Type Labor Anesthesia Weeks Gestation Incision Type Labor Labor Length Hrs Delivered By Post Complications Tubal Sterilization Discharge Date Comments 6 Discharge Information Feeding Method Contraceptive Method Maternal HG B and HCT Levels
--- OUTSIDE RECORDS SUMMARY | 2025-02-02 06:42 | XMS_ITS | Clinical Summary ---
Author Organization [facility] Care Team Providers Care Gravel Inspector Name Role Phone Unavailable Primary Care Provider Unavailabl e Social History Tobacco Use Types Packs/Day Years Used Date Smoking Tobacco: Never Assessed Comments Unknown Sex and Gender Information Value Date Recorded Sex Assigned at Not on file Legal Sex Female 7:05 AM MEDICAL PHYSICIST Gender Identity Not on file Sexual Orientation Not on file Plan of Treatment Health Maintenance Due Date Last Done Comments Hepatitis C Virus (HCV) Screening 1977 TdaP Immunization 1977 Hepatitis B Immunization (1 of 3 - 19+ 3-dose series) 1996 Pap Smear 1998 Cervical Cancer Screening (CCS) 2007 HPV/Cotest 2007 Discussion re Starting/Frequency of Mammograms 2017 Colonoscopy 2022 Colorectal Cancer Screening 2022 Influenza Immunization (#1) 2024 08/21/2015 SARS-COV-2 Immunization ( season) 2024 08/13/2021, 12/10/2020, 11/21/2020 Respiratory Syncytial Virus (RSV) Immunization (Adult) (1 - 1-dose 75+ series) 2052 Meningococcal Immunization (ACWY) Aged Out No longer eligible b ased on patient's age to complete this topic Pneumococcal Immunization Combined Aged Out No longer eligible b ased on patient's age to complete this topic Rotavirus Immunization Aged Out No lo nger eligible based on patient's age to complete this topic
--- OUTSIDE RECORDS SUMMARY | 2025-02-02 06:42 | XMS_ITS | Encounter Summary ---
Author Organization [facility] Health Address [address] [place] [address] Care Team Providers Care Accounts Receivable Processor Name Role Phone Colin France MD Primary Care Provider [phone] Joselito Matute DO Unavailable [phone] Aditya Yip MD Unavailable [phone] Aditya Yip MD Primary Care Provider [phone] Encounter Details Date Type Department Care Team (Late st Contact Info) Description 07/03/2017 [facility] Outpatient Visit [facility] [address] [place] [address] Document, Scanned Social History Tobacco Use Types Packs/Day Years Used Date Smoking Tobacco: Never Smokeless Tobacco: Never Alcohol Use Standard Drinks/Week Comments Yes 0.8 (1 standard drink = 0.6 oz p ure alcohol) Comments No Sex and Gender Information Value Date Recorded Sex Assigned at Not on file Legal Sex Female 4:15 AM DRESS FITTER Gender Identity Not on file Sexual Orientation Not on file 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 Job End Date 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 on file N ot on file Not on file documented as of this encounter Plan of Treatment Upcoming Encounters Date Type Department Care Team (Late Contact Info) Description 02/09/2025 9:30 AM CDT Office Visit [facility] - Family Medicine [address] [facility] [address] [place] [phone] Kiya Thompson, DIPLOMA DENTAL ASSISTANT-FIELD ENGINEER [address] [phone] documented as of this encounter Visit Diagnoses Not on filedocumented in this encounter Care Teams Accounts Receivable Processor Relationship Specialty Start Date End Date Colin France MD [address] [place] [address] PCP - General 10/18/10 11/21/23 Aditya Yip MD [address] [phone] PCP - General Family Medicine 11/22/23 Joselito Matute DO [address] [place] [address] Orthopedic Surgery 07/03/17 Aditya Yip MD [address] [phone] Family Medicine 11/22/23 documented as of this encounter
--- OUTSIDE RECORDS SUMMARY | 2025-02-02 06:42 | XMS_ITS | Encounter Summary ---
Author Organization [facility] Health Address [address] [place] [address] Care Team Providers Care Emergency Medical Dispatcher Name Role Phone Colin France MD Primary Care Provider [phone] Joselito Matute DO Unavailable [phone] Aditya Yip MD Unavailable [phone] Aditya Yip MD Primary Care Provider [phone] Encounter Details Date Type Department Care Team (Late st Contact Info) Description 07/03/2017 [facility] Outpatient Visit [facility] [address] [place] [address] Document, Scanned Social History Tobacco Use Types Packs/Day Years Used Date Smoking Tobacco: Never Smokeless Tobacco: Never Alcohol Use Standard Drinks/Week Comments Yes 0.8 (1 standard drink = 0.6 oz p ure alcohol) Comments No Sex and Gender Information Value Date Recorded Sex Assigned at Not on file Legal 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 Female 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 Gender Identity Not on file Sexual Orientation Not on file 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 Job End Date 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 on file N ot on file Not on file documented as of this encounter Plan of Treatment Upcoming Encounters Date Type Department Care Team (Late Contact Info) Description 02/09/2025 9:30 AM CDT Office Visit [facility] - Family Medicine [address] [facility] [address] [place] [phone] Kiya Thompson, EVENT TECHNICIAN-TRAINING ENGINEER [address] [phone] documented as of this encounter Visit Diagnoses Not on filedocumented in this encounter Care Teams Emergency Medical Dispatcher Relationship Specialty Start Date End Date Colin France MD [address] [place] [address] PCP - General 10/18/10 11/21/23 Aditya Yip MD [address] [phone] PCP - General Family Medicine 11/22/23 Joselito Matute DO [address] [place] [address] Orthopedic Surgery 07/03/17 Aditya Yip MD [address] [phone] Family Medicine 11/22/23 documented as of this encounter
--- OUTSIDE RECORDS SUMMARY | 2025-02-02 06:42 | XMS_ITS | Encounter Summary ---
Author Organization [facility] Health Address [address] [facility] [place] [address] Care Team Providers Care Tap Puller Name Role Phone Colin France MD Primary Care Provider [phone] Joselito Matute DO Unavailable [phone] Aditya Yip MD Unavailable [phone] Aditya Yip MD Primary Care Provider [phone] Encounter Details Date Type Department Care Team (Late st Contact Info) Description 09/27/2017 [facility] Outpatient Visit [facility] Orthopedics - Radiology [address] [place] [address] Document, Scanned Social History Tobacco Use Types Packs/Day Years Used Date Smoking Tobacco: Never Smokeless Tobacco: Never Alcohol Use Standard Drinks/Week Comments Yes 0.8 (1 standard drink = 0.6 oz p ure alcohol) Comments No Sex and Gender Information Value Date Recorded Sex Assigned at Not on file Legal Sex Female 4:15 AM SHEET HANGER Gender Identity Not on file Sexual Orientation Not on file 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 Job End Date 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 file N ot on file Not on file documented as of this encounter Plan of Treatment Upcoming Encounters Date Type Department Care Team (Late st Contact Info) Description 02/09/2025 9:30 AM CDT Office Visit [facility] - Family Medicine [address] [facility], [address] [place] [address] Kiya Thompson, COVER STRIPPER-SENIOR NATIONAL ACCOUNT MANAGER [address] [phone] documented as of this encounter Visit Diagnoses Not on filedocumented in this encounter Care Teams Tap Puller Relationship Specialty Start Date End Date Colin France MD [address] [place] [address] PCP - General 10/18/10 11/21/23 Aditya Yip MD [address] [phone] PCP - General Family Medicine 11/22/23 Joselito Matute DO [address] [place] [address] Orthopedic Surgery 07/03/17 Aditya Yip MD [address] [phone] Family Medicine 11/22/23 documented as of this encounter
--- OUTSIDE RECORDS SUMMARY | 2025-02-02 06:42 | XMS_ITS | Encounter Summary ---
Author Organization [facility] Health Address [address] [place] [address] Care Team Providers Care Rabies Inspector Name Role Phone Colin France MD Primary Care Provider [phone] Joselito Matute DO Unavailable [phone] Aditya Yip MD Unavailable [phone] Aditya Yip MD Primary Care Provider [phone] Encounter Details Date Type Department Care Team (Late st Contact Info) Description 07/10/2017 [facility] Outpatient Visit [facility] Orthopedics - Radiology [address] [place] [address] Joselito Matute, DO [address] [place] [address] Social History Tobacco Use Types Packs/Day Years Used Date Smoking Tobacco: Never Smokeless Tobacco: Never Alcohol Use Standard Drinks/Week Comments Yes 0.8 (1 standard drink = 0.6 oz p ure alcohol) Comments No Sex and Gender Information Value Date Recorded Sex Assigned at Not on file Legal Sex Female 4:15 AM SELLING MANAGER Gender Identity Not on file Sexual Orientation Not on file 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 Job 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 Date 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 N ot on file Not on file documented as of this encounter Plan of Treatment Upcoming Encounters Date Type Department Care Team (Late Contact Info) Description 02/09/2025 9:30 AM CDT Office Visit [facility] - Family Medicine [address] [phone] Kiya Thompson, HEDIS SPECIALIST-OUTGOING INSPECTOR [address] [phone] documented as of this encounter Visit Diagnoses Not on filedocumented in this encounter Care Teams Rabies Inspector Relationship Specialty Start Date End Date Colin Fracne MD [address] [place] [address] PCP - General 10/18/10 11/21/23 Aditya Yip MD [address] [phone] PCP - General Family Medicine 11/22/23 Joselito Matute DO [address] [place] [address] Orthopedic Surgery 07/03/17 Aditya Yip MD [address] [phone] Family Medicine 11/22/23 documented as of this encounter
[2025-02-02 08:41] LABS: BEDSIDEPREGUCG Negative (Negative)
[2025-02-02 08:54] LABS: Basophils Percent Auto 0.4 % (0.2-1.2); Hematocrit 43.2 % (37.0-47.0); Immature Granulocyte Absolute 0.02 K/mm3 (0.00-0.031); Immature Granulocyte Percent A 0.4 % (0-0.5); Lymphocytes Absolute Auto 0.72 K/mm3 (0.9-3.2); Lymphocytes Percent Auto 13.8 % (18.3-44.2); Mean Corpuscular HGB Conc 32.4 g/dl (32-36); Mean Corpuscular Hemoglobin 28.7 pg (26-34); Mean Corpuscular Volume 88.7 fl (80-100); Mean Platelet Volume 10.4 fl (7.4-10.4); Monocytes Absolute Auto 0.2 K/mm3 (0.1-0.6); Monocytes Percent Auto 3.6 % (2.6-8.5); Neutrophils Absolute Auto 4.3 K/mm3 (1.3-6.7); Neutrophils Percent Auto 81.8 % (45.5-73.1); Platelet Count Result 227 k/mm3 (150-375); Red Blood Count 4.87 M/mm3 (4.2-5.4); Red Cell Distribution Width 14.1 % (11.5-14.5); White Blood Count 5.2 K/mm3 (4.5-10.0)
[2025-02-02 08:57] LABS: Add Urine Microscopic? YES; Appearance Urine Clear (Clear); Bacteria Urine None Seen /hpf; Bilirubin Urine 1+ (Negative); Blood Urine 2+ (Negative); Color Urine Dark Yellow (Yellow); Glucose Urine UA Negative (Negative); Ketones Urine Negative (Negative); Leukocyte Esterase Ur Trace LEU/UL (Negative); Nitrate Urine Negative (Negative); Non Pathogenic Casts 0-2; Protein Urine Negative (Negative); Specific Grav Ur 1.013 (1.001-1.035); Squamous Epithelial Cell Urine Occasional /hpf (Few); WBC Urine 0-5 /hpf (0-3)
[2025-02-02 09:05] LABS: Alanine Aminotransferase 702 U/L (6-35); Albumin Level 4.6 g/dL (3.5-5.1); Alkaline Phosphatase 210 U/L (38-126); Anion Gap 6 mmol/L (4-12); Aspartate Amino Transferase 668 U/L (14-36); Bilirubin,Total 2.4 mg/dL (0.2-1.3); Blood Urea Nitrogen 6 mg/dL (7-17); Calcium 10.2 mg/dL (8.4-10.2); Carbon Dioxide 31 mmol/L (22-30); Chloride 101 mmol/L (98-107); Estimated CRCL calculation 94 ml/min; Estimated Glomerular Filt Rate > 60; Glucose 168 mg/dL (65-110); Lipase 98 U/L (23-300); Potassium 3.4 mmol/L (3.4-5.0); Sodium 138 mmol/L (137-145)
--- NOTE | 2025-02-02 09:06 | ED_ITS ---
HPI - Abdominal Pain General Chief Complaint: Abdominal Pain <Uma Rabago PA-C - Last Filed: 02/02/25 12:51> Stated Complaint: constipation <Uma Rabago PA-C - Last Filed: 02/02/25 12:51> Time Seen by Provider: 02/02/25 09:00 <Uma Rabago PA-C - Last Filed: 02/02/25 12:51> History of Present Illness HPI narrative: 49-year-old female presents emergency department for constipation and epigastric abdominal pain and bloating for approximately 1 week. Patient states she is not a full bowel movement in about a week but has passed small, pebble- like stools, the last being this morning. She reports associated nausea and vomiting about 5 days but has not had any since. Denies fever, dysuria or hematuria, melena or hematochezia, prior abdominal surgeries. States she tried to digitally disimpact herself about 2 days ago with some removal of stool. Patient denies use of drugs, admits to occasional use of alcohol. <Uma Rabago PA-C - Last Filed: 02/02/25 12:51> Related Data Home Medications: Home Medications ?Medication ?Instructions ?Recorded ?Confirmed ?Last Taken ?Type multivit with minerals-iron 18 1 tablet PO DAILY 12/06/23 02/02/25 02/01/25 History mg-folic ac 400 mcg-vit K 25 mcg tablet (Adults Multivitamin) <Uma Rabago PA-C - Last Filed: 02/02/25 12:51> Allergies/Adverse Reactions: Allergies Allergy/AdvReac Type Severity Reaction Status Date / Time aspartame AdvReac Mild MOUTH Verified 02/02/25 06:46 ITCHING <Uma Rabago PA-C - Last Filed: 02/02/25 12:51> Review of Systems 2 Review of Systems: All systems reviewed & are unremarkable except as noted in HPI and below <Uma Rabago PA-C - Last Filed: 02/02/25 12:51> PMFSH Past Medical History Medical History: Medical History Obesity <Uma Rabago PA-C - Last Filed: 02/02/25 12:51> Surgical History Surgical History: Surgical History H/O arthroscopic knee surgery <Uma Rabago PA-C - Last Filed: 02/02/25 12:51> Social History Social History: Social History Smoking status: Never smoker Alcohol intake: never Substance use: never Substance use type: does not use Do You Feel Safe in your Home?: Yes Lack of Transportation: No Lack of Food: Never True Current Housing: I Have Housing Concerned About Future Housing: No Difficulty Paying Gas/Electric Bills: No Difficulty Paying for Meds: No Currently Unemployed: No Education: Associate Degree Difficulty w/ Childcare or Family Care: No Living arrangements: with family Spiritual care concerns: No <Uma Rabago PA-C - Last Filed: 02/02/25 12:51> Exam 2 Narrative: GENERAL: Well-appearing, well-nourished, and in no acute distress. HEAD: Normocephalic, atraumatic. EYES: EOMI. ENT: Nares clear, no rhinorrhea or epistaxis. Mucous membranes moist. NECK: Supple. CHEST: Clear to auscultation. No respiratory distress. HEART: Regular rate and rhythm. No murmur heard. Normal peripheral pulses. ABDOMEN: Quiet bowel sounds. Abdomen soft with tenderness to the periumbilical region, RUQ and epigastrium. No rebound, guarding or rigidity. No CVA tenderness. Negative Lai's sign. EXTREMITIES: Normal range of motion. No edema. SKIN: Warm, dry, no rash. NEURO: No focal deficits. Alert and oriented x3 <Uma Rabago PA-C - Last Filed: 02/02/25 12:51> Course COMMUNITY RELATIONS POLICE LIEUTENANT/PA Physician Supervision For this patient encounter, I reviewed the COMMUNITY RELATIONS POLICE LIEUTENANT or PA documentation, treatment plan, and medical decision making; and I had [id number] time with this patient. <Jean-Paul Alonso MD - Last Filed: 02/02/25 18:03> Vital Signs Vital signs: Vital Signs Temperature 97.8 F 02/02/25 06:43 Pulse Rate 70 02/02/25 06:43 Respiratory Rate 20 02/02/25 06:43 Blood Pressure 144/76 H 02/02/25 06:43 Pulse Oximetry 100 02/02/25 06:43 Temperature 97.5 F L 02/02/25 13:59 Pulse Rate 79 02/02/25 14:45 Respiratory Rate 16 02/02/25 14:45 Blood Pressure 154/79 H 02/02/25 13:59 Pulse Oximetry 99 02/02/25 14:45 Oxygen Delivery Room Air 02/02/25 14:45 <Uma Rabago PA-C - Last Filed: 02/02/25 12:51> Vital Signs Temperature 97.8 F 02/02/25 06:43 Pulse Rate 70 02/02/25 06:43 Respiratory Rate 20 02/02/25 06:43 Blood Pressure 144/76 H 02/02/25 06:43 Pulse Oximetry 100 02/02/25 06:43 Temperature 97.5 F L 02/02/25 13:59 Pulse Rate 79 02/02/25 14:45 Respiratory Rate 16 02/02/25 14:45 Blood Pressure 154/79 H 02/02/25 13:59 Pulse Oximetry 99 02/02/25 14:45 Oxygen Delivery Room Air 02/02/25 14:45 <Jean-Paul Alonso MD - Last Filed: 02/02/25 18:03> MDM - Abdominal Pain MDM Narrative Medical decision making narrative: 49-year-old female he presents to the emergency department for constipation and abdominal pain/ bloating for approximately 1 week. Vitals with elevated blood pressure, otherwise unremarkable. Patient is afebrile and nontoxic appearing. Exam is significant for the above. Lab work shows no leukocytosis or anemia. Chemistries are remarkable for hyperbilirubinemia 2.4, AST of 668, ALT of 72, alk-phos of 210. Lipase is within normal limits. EKG shows sinus rhythm with sinus arrhythmia, normal [place] interval, normal QRS duration, normal QTC, no ST elevations or depressions. Troponin undetectable. CT abdomen pelvis remarkable for the following: Intra and extrahepatic biliary ductal dilatation without gallbladder enlargement but with significant gallbladder inflammation. No pancreatic ductal dilatation is identified No discrete ampullary mass is visualized with cross-sectional imaging. No calcified stone is visualized as a source of obstruction. Significant hepatomegaly. Trace right basilar atelectasis Patient re-evaluated and resting comfortably in exam bed. She politely declines antiemetics and pain medications, is reporting some indigestion so will provide IV Pepcid. Discussed case with GI, Dr. Parisi, who recommends MRCP and RUQ US. Unfortunately we do not have MRI or ultrasound available today due to holiday, orders placed for tomorrow. Discussed with general surgery, Dr. Flores, who agrees with the plan and consult. Advises to hold antibiotics at this time given no leukocytosis or fevers. Discussed case with hospitalist Tawana ROJAS, who agrees to admission. Pt made NPO and started on maintenance fluids. Patient updated on results and agrees to plan of care. <Uma Rabago PA-C - Last Filed: 02/02/25 12:51> Lab Data Result diagrams: 02/02/25 08:35 02/02/25 08:35 <Uma Rabago PA-C - Last Filed: 02/02/25 12:51> Labs: Lab Results 02/02/25 02/02/25 Range/Units 08:35 08:39 WBC 5.2 (4.5-10.0) K/mm3 RBC 4.87 (4.2-5.4) M/mm3 Hgb 14.0 (12.0-15.0) g/dL Hct 43.2 (37.0-47.0) % MCV 88.7 (80-100) fl MCH 28.7 (26-34) pg MCHC 32.4 (32-36) g/dl RDW 14.1 (11.5-14.5) % Plt Count 227 (150-375) k/mm3 MPV 10.4 (7.4-10.4) fl Immature Gran % (Auto) 0.4 (0-0.5) % Neut % (Auto) 81.8 H (45.5-73.1) % Lymph % (Auto) 13.8 L (18.3-44.2) % [place] % (Auto) 3.6 (2.6-8.5) % Eos % (Auto) 0.0 (0-4.4) % Baso % (Auto) 0.4 (0.2-1.2) % Lymph # (Auto) 0.72 L (0.9-3.2) K/mm3 [place] # (Auto) 0.2 (0.1-0.6) K/mm3 Eos # (Auto) 0.0 (0-0.3) K/mm3 Baso # (Auto) 0.0 (0.0-0.1) K/mm3 Abs Immat Gran (auto) 0.02 (0.00-0.031) K/mm3 Absolute Neuts (auto) 4.3 (1.3-6.7) K/mm3 Absolute Nucleated RBC 0.000 (0.0-0.012) K/mm3 Nucleated RBC % 0.0 (0.0-0.2) % Sodium 138 (137-145) mmol/L Potassium 3.4 (3.4-5.0) mmol/L Chloride 101 (98-107) mmol/L Carbon Dioxide 31 H (22-30) mmol/L Anion Gap 6 (4-12) mmol/L BUN 6 L (7-17) mg/dL Creatinine 0.56 L (0.7-1.0) mg/dL Estim Creat Clear Calc 94 ml/min Estimated GFR > 60 (59 - ) Glucose 168 H (65-110) mg/dL Calcium 10.2 (8.4-10.2) mg/dL Total Bilirubin 2.4 H (0.2-1.3) mg/dL AST 668 H (14-36) U/L ALT 702 H (6-35) U/L Alkaline Phosphatase 210 H (38-126) U/L Troponin I < 0.012 (0.000-0.034) ng/mL Total Protein 8.0 (6.3-8.2) g/dL Albumin 4.6 (3.5-5.1) g/dL Lipase 98 (23-300) U/L Urine Color Dark yellow (Yellow) Urine Appearance Clear (Clear) Urine pH 6.0 (5.0-9.0) Ur Specific [place] 1.013 (1.001-1.035) Urine Protein Negative (Negative) mg/dL Urine Glucose (UA) Negative (Negative) mg/dL Urine Ketones Negative (Negative) mg/dL Ur Blood (Man) 2+ H (Negative) Urine Nitrate Negative (Negative) Urine Bilirubin 1+ H (Negative) Urine Urobilinogen 2.0 H (<2.0) mg/dL Leukocyte Esterase Rfl Trace H (Negative) NELLY/UL Urine RBC 6-10 H (0-2) /hpf Urine WBC 0-5 (0-3) /hpf Ur Squamous Epith Cells Occasional (Few) /hpf Urine Bacteria None seen /hpf Urine Casts 0-2 POC Urine HCG, Qual Negative (Negative) <Uma Rabago PA-C - Last Filed: 02/02/25 12:51> Lab Results 02/02/25 02/02/25 Range/Units 08:35 08:39 WBC 5.2 (4.5-10.0) K/mm3 RBC 4.87 (4.2-5.4) M/mm3 Hgb 14.0 (12.0-15.0) g/dL Hct 43.2 (37.0-47.0) % MCV 88.7 (80-100) fl MCH 28.7 (26-34) pg MCHC 32.4 (32-36) g/dl RDW 14.1 (11.5-14.5) % Plt Count 227 (150-375) k/mm3 MPV 10.4 (7.4-10.4) fl Immature Gran % (Auto) 0.4 (0-0.5) % Neut % (Auto) 81.8 H (45.5-73.1) % Lymph % (Auto) 13.8 L (18.3-44.2) % [place] % (Auto) 3.6 (2.6-8.5) % Eos % (Auto) 0.0 (0-4.4) % Baso % (Auto) 0.4 (0.2-1.2) % Lymph # (Auto) 0.72 L (0.9-3.2) K/mm3 [place] # (Auto) 0.2 (0.1-0.6) K/mm3 Eos # (Auto) 0.0 (0-0.3) K/mm3 Baso # (Auto) 0.0 (0.0-0.1) K/mm3 Abs Immat Gran (auto) 0.02 (0.00-0.031) K/mm3 Absolute Neuts (auto) 4.3 (1.3-6.7) K/mm3 Absolute Nucleated RBC 0.000 (0.0-0.012) K/mm3 Nucleated RBC % 0.0 (0.0-0.2) % Sodium 138 (137-145) mmol/L Potassium 3.4 (3.4-5.0) mmol/L Chloride 101 (98-107) mmol/L Carbon Dioxide 31 H (22-30) mmol/L Anion Gap 6 (4-12) mmol/L BUN 6 L (7-17) mg/dL Creatinine 0.56 L (0.7-1.0) mg/dL Estim Creat Clear Calc 94 ml/min Estimated GFR > 60 (59 - ) Glucose 168 H (65-110) mg/dL Calcium 10.2 (8.4-10.2) mg/dL Total Bilirubin 2.4 H (0.2-1.3) mg/dL AST 668 H (14-36) U/L ALT 702 H (6-35) U/L Alkaline Phosphatase 210 H (38-126) U/L Troponin I < 0.012 (0.000-0.034) ng/mL Total Protein 8.0 (6.3-8.2) g/dL Albumin 4.6 (3.5-5.1) g/dL Lipase 98 (23-300) U/L Urine Color Dark yellow (Yellow) Urine Appearance Clear (Clear) Urine pH 6.0 (5.0-9.0) Ur Specific [place] 1.013 (1.001-1.035) Urine Protein Negative (Negative) mg/dL Urine Glucose (UA) Negative (Negative) mg/dL Urine Ketones Negative (Negative) mg/dL Ur Blood (Man) 2+ H (Negative) Urine Nitrate Negative (Negative) Urine Bilirubin 1+ H (Negative) Urine Urobilinogen 2.0 H (<2.0) mg/dL Leukocyte Esterase Rfl Trace H (Negative) NELLY/UL Urine RBC 6-10 H (0-2) /hpf Urine WBC 0-5 (0-3) /hpf Ur Squamous Epith Cells Occasional (Few) /hpf Urine Bacteria None seen /hpf Urine Casts 0-2 POC Urine HCG, Qual Negative (Negative) <Jean-Paul Alonso MD - Last Filed: 02/02/25 18:03> Imaging Data Radiologist's impression: ITS Impressions Abdomen/Pelvis CT 02/02/25 10:25 IMPRESSION: Intra and extrahepatic biliary ductal dilatation without gallbladder enlargement but with significant gallbladder inflammation. No pancreatic ductal dilatation is identified No discrete ampullary mass is visualized with cross-sectional imaging. No calcified stone is visualized as a source of obstruction. Significant hepatomegaly. Trace right basilar atelectasis <Uma Rabago PA-C - Last Filed: 02/02/25 12:51> ITS Impressions Abdomen/Pelvis CT 02/02/25 10:25 IMPRESSION: Intra and extrahepatic biliary ductal dilatation without gallbladder enlargement but with significant gallbladder inflammation. No pancreatic ductal dilatation is identified No discrete ampullary mass is visualized with cross-sectional imaging. No calcified stone is visualized as a source of obstruction. Significant hepatomegaly. Trace right basilar atelectasis <Jean-Paul Alonso MD - Last Filed: 02/02/25 18:03> Discharge Plan Discharge Clinical Impression: Transaminitis, Common bile duct dilatation, Hepatomegaly <Uma Rabago PA-C - Last Filed: 02/02/25 12:51> Patient Disposition: Still a Patient <Uma Rabago PA-C - Last Filed: 02/02/25 12:51> Condition: Stable <Uma Rabago PA-C - Last Filed: 02/02/25 12:51>
--- OUTSIDE RECORDS SUMMARY | 2025-02-02 09:09 | XMS_ITS | Encounter Summary ---
Author Organization [facility] Health Address [address] [place] [address] Care Team Providers Care Clinical Provider Trainer Name Role Phone Colin France MD Primary Care Provider [phone] Joselito Matute DO Unavailable [phone] Aditya Yip MD Unavailable [phone] Aditya Yip MD Primary Care Provider [phone] Encounter Details Date Type Department Care Team (Late st Contact Info) Description 08/30/2017 [facility] Outpatient Visit [facility] Orthopedics - Radiology [address] [place] [id number] Document, Scanned Social History Tobacco Use Types Packs/Day Years Used Date Smoking Tobacco: Never Smokeless Tobacco: Never Alcohol Use Standard Drinks/Week Comments Yes 0.8 (1 standard drink = 0.6 oz p ure alcohol) Comments No Sex and Gender Information Value Date Recorded Sex Assigned at Not on file Legal Sex Female 4:15 AM SOCIAL SECRETARY Gender Identity Not on file Sexual Orientation Not on file 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, [address] [place] [address] Kiya Thompson, MODEL MAKER-GLUER MACHINE OPERATOR [address] [phone] documented as of this encounter Visit Diagnoses Not on filedocumented in this encounter Care Teams Clinical Provider Trainer Relationship Specialty Start Date End Date Colin France MD [address] [place] [address] PCP - General 10/18/10 11/21/23 Aditya Yip MD [address] [phone] PCP - General Family Medicine 11/22/23 Joselito Matute DO [address] [place] [address] Orthopedic Surgery 07/03/17 Aditya Yip MD [address] [phone] Family Medicine 11/22/23 documented as of this encounter
--- OUTSIDE RECORDS SUMMARY | 2025-02-02 09:09 | XMS_ITS | Encounter Summary ---
Author Organization [facility] Health Address [address] [facility] [place] [address] Care Team Providers Care Bench Tool Maker Name Role Phone Colin France MD Primary Care Provider [phone] Joselito Matute DO Unavailable [phone] Aditya Yip MD Unavailable [phone] Aditya Yip MD Primary Care Provider [phone] Encounter Details Date Type Department Care Team (Late st Contact Info) Description 07/03/2017 [facility] Outpatient Visit [facility] [address] [place] [address] Document, Scanned Social History Tobacco Use Types Packs/Day Years Used Date Smoking Tobacco: Never Smokeless Tobacco: Never Alcohol Use Standard Drinks/Week Comments Yes 0.8 (1 standard drink = 0.6 oz p ure alcohol) Comments No Sex and Gender Information Value Date Recorded Sex Assigned at Not on file Legal Sex Female 4:15 AM BLAST FURNACE TENDER Gender Identity Not on file Sexual Orientation Not on file 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 file N ot on file Not on file documented as of this encounter Plan of Treatment Upcoming Encounters Date Type Department Care Team (Late Contact Info) Description 02/09/2025 9:30 AM CDT Office Visit [facility] - Family Medicine [address] [facility] [address] [place] [phone] Kiya Thompson, AERIAL PLANTING AND CULTIVATION MANAGER-FLUTE GRINDER [address] [phone] documented as of this encounter Visit Diagnoses Not on filedocumented in this encounter Care Teams Bench Tool Maker Relationship Specialty Start Date End Date Colin France MD [address] [place] [address] PCP - General 10/18/10 11/21/23 Aditya Yip MD [address] [phone] PCP - General Family Medicine 11/22/23 Joselito Matute DO [address] [place] [address] Orthopedic Surgery 07/03/17 Aditya Yip MD [address] [phone] Family Medicine 11/22/23 documented as of this encounter
--- OUTSIDE RECORDS SUMMARY | 2025-02-02 09:09 | XMS_ITS | Encounter Summary ---
Author Organization [facility] Health Address [address] [facility] [place] [address] Care Team Providers Care Offset Lithographic Press Setter Name Role Phone Colin France MD Primary Care Provider [phone] Joselito Matute DO Unavailable [phone] Aditya Yip MD Unavailable [phone] Aditya Yip MD Primary Care Provider [phone] Encounter Details Date Type Department Care Team (Late st Contact Info) Description 09/27/2017 [facility] Outpatient Visit [facility] Orthopedics - Radiology [address] [place] [id number] Document, Scanned Social History Tobacco Use Types Packs/Day Years Used Date Smoking Tobacco: Never Smokeless Tobacco: Never Alcohol Use Standard Drinks/Week Comments Yes 0.8 (1 standard drink = 0.6 oz p ure alcohol) Comments No Sex and Gender Information Value Date Recorded Sex Assigned at Not on file Legal Sex Female 4:15 AM BIOPHARMACEUTICAL REP Gender Identity Not on file Sexual Orientation Not on file 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 Job 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 N ot on file Not on file documented as of this encounter Plan of Treatment Upcoming Encounters Date Type Department Care Team (Late st Contact Info) Description 02/09/2025 9:30 AM CDT Office Visit [facility] - Family Medicine [address] [facility], [address] [place] [address] Kiya Thompson, TREE CUTTER-HOTEL OFFICE MANAGER [address] [phone] documented as of this encounter Visit Diagnoses Not on filedocumented in this encounter Care Teams Offset Lithographic Press Setter Relationship Specialty Start Date End Date Colin France MD [address] [place] [address] PCP - General 10/18/10 11/21/23 Aditya Yip MD [address] [phone] PCP - General Family Medicine 11/22/23 Joselito Matute DO [address] [place] [address] Orthopedic Surgery 07/03/17 Aditya iYp MD [address] [phone] Family Medicine 11/22/23 documented as of this encounter
--- OUTSIDE RECORDS SUMMARY | 2025-02-02 09:09 | XMS_ITS | Clinical Summary ---
Author Organization [facility] Address [address] [place] [address] Care Team Providers Care Subscription Clerk Name Role Phone Colin France MD Primary Care Provider [phone] Allergies No known active allergies Medications No [...] - Td or Tdap) 12/19/2027 Care Teams Subscription Clerk Relationship Specialty Start Date End Date Colin France MD [address] [place] [id number] PCP - General Family Practice 12/18/17
--- OUTSIDE RECORDS SUMMARY | 2025-02-02 09:09 | XMS_ITS | Encounter Summary ---
Author Organization [facility] Health Address [address] [facility] [facility] [place] [address] Care Team Providers Care Motor And Controls Tester Name Role Phone Colin France MD Primary Care Provider [phone] Joselito Matute DO Unavailable [phone] Aditya Yip MD Unavailable [phone] Aditya Yip MD Primary Care Provider [phone] Encounter Details Date Type Department Care Team (Late st Contact Info) Description 07/10/2017 [facility] Outpatient Visit [facility] Orthopedics - Radiology [address] [place] [address] Joselito Matute, DO [address] [place] [address] Social History Tobacco Use Types Packs/Day Years Used Date Smoking Tobacco: Never Smokeless Tobacco: Never Alcohol Use Standard Drinks/Week Comments Yes 0.8 (1 standard drink = 0.6 oz p ure alcohol) Comments No Sex and Gender Information Value Date Recorded Sex Assigned at Not on file Legal Sex Female 4:15 AM ASSISTANT INVENTORY MANAGER Gender Identity Not on file Sexual Orientation Not on file 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 Job End Date 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 on file N ot on file Not on file documented as of this encounter Plan of Treatment Upcoming Encounters Date Type Department Care Team (Late Contact Info) Description 02/09/2025 9:30 AM CDT Office Visit [facility] - Family Medicine [address] [phone] Kiya Thompson, BIN TRIPPER OPERATOR-PRODUCTION TRUCK DRIVER [address] [phone] documented as of this encounter Visit Diagnoses Not on filedocumented in this encounter Care Teams Motor And Controls Tester Relationship Specialty Start Date End Date Colin France MD [address] [place] [address] PCP - General 10/18/10 11/21/23 Aditya Yip MD [address] [phone] PCP - General Family Medicine 11/22/23 Joselito Matute DO [address] [place] [address] Orthopedic Surgery 07/03/17 Aditya Yip MD [address] [phone] Family Medicine 11/22/23 documented as of this encounter
--- OUTSIDE RECORDS SUMMARY | 2025-02-02 09:09 | XMS_ITS | Clinical Summary ---
Author Organization [facility] Address [address] [facility] [place] [address] Care Team Providers Care Salesperson Books Name Role Phone Joselito Matute DO Unavailable [phone] Aditya Yip MD Unavailable [phone] Aditya Yip MD Primary Care Provider [phone] Source Comments [facility],non-owned Affiliates and Associated Physician Practices is amultiple site organization consisting of ambulatory clinics and hospital sitesin [place], [place], [place] and [place]. 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, [address] [place] [phone] Kiya Thompson, INTERACTIVE MEDIA SPECIALIST-RN GYNECOLOGY [address] [facility] [address] [place] [address] Health Maintenance Due Date Last [...] this topic Medical Devices Implanted Type Area Rn Clinician Device Identifier Shelf Expiration Date Model / Serial / Lot Plate 145mm Comp 10 Hl 3.5mm Screws Lt Implanted:Qty: 1 on 07/12/2017 by Joselito Matute, DO at [facility] Right: Arm [employer] [id number] / / Screw 2.7mm 5mm 20mm T15 Flut Lng Bone Implanted:Qty: 1 on 07/12/2017 by Joselito Matute DO at [facility] Right: Arm [employer] [id number] / / Screw 3.5mm 18mm Aleks T20 Slf-Tap Prlc Implanted:Qty: 4 on 07/12/2017 by Joselito Matute, DO at [facility] Right: Arm [employer] [id number] / / Screw 3.5mm 6.8mm 20mm T20 Cut Flut Lng Implanted:Qty: 1 on 07/12/2017 by Joselito Matute DO at [facility] Right: Arm [employer] [id number] / / Screw 3.5mm 6mm 18mm T15 Ft Cortx Implanted:Qty: 1 on 07/12/2017 by Joselito Matute, DO at [facility] Right: Arm [employer] [facility] [id number] / / Procedures Procedure Name Priority Date/Time [...] V72.31 ; Routine gynecological examination V06.1 ; Nnahnxanzw-onvutun-tqfttouto, combined [DTP] [DtaP] Performed by [facility] ACCOUNT [...] Prep Vial Resulting Agency Comment [facility] [address] [place] [address] Ladonna MELÉNDEZ [id number] us Colin France MD LAB - PATHOLOGY/CYTOLOGY ORDERAB LES Final Result [facility] ACCOUNT BILL [address] [place] [address] * (ABNORMAL) GLUCOSE (06/10/2012 2:53 PM CDT) Glucose 112(H) 65 - 99 mg/dL [facility] ACCOUNT BILL Blood specimen (specimen) BLOOD SPECIMEN / Unknown 06/10/2012 2:53 PM CDT 06/10/2012 7:07 PM CDT Narrative Resulting Agency Comment [facility] [address] [facility] [id number] Colin France MD LAB - CHEMISTRY ORDERABLES Final Result Performing Organization Address City/[facility]/ZIP Co de Phone Number [facility] ACCOUNT BILL [address] [place] [address] * (ABNORMAL) LIPID PROFILE (06/10/2012 2:53 PM [...] PM CDT Narrative Resulting Agency Comment [facility] [address] [facility] [id number] Colin France MD LAB - CHEMISTRY ORDERABLES Final Result Performing Organization Address City/[facility]/ZIP Co de Phone Number [facility] ACCOUNT BILL [address] [place] [address] from Last 3 Months or Most Recently Relevant to Health Maintenance Insurance [facility] Advance Directives * Full Code (Latest Code Status on File) Date Activated Date Inactivated Comments 07/12/2017 4:22 PM 07/13/2017 5:34 PM Care Teams Salesperson Books Relationship Specialty Start Date End Date Aditya Yip MD [address] [address] PCP - General Family Medicine 11/22/23 Joselito Matute DO Orthopedic Surgery 07/03/17 Aditya Yip MD [address] [phone] Family Medicine 11/22/23
--- OUTSIDE RECORDS SUMMARY | 2025-02-02 09:09 | XMS_ITS | Encounter Summary ---
Author Organization [facility] Address [address] [facility] [place] [address] Care Team Providers Care Financial Report Service Sales Agent Name Role Phone Colin France MD Primary Care Provider [phone] Joselito Matute DO Unavailable [phone] Aditya Yip MD Unavailable [phone] Aditya Yip MD Primary Care Provider [phone] Encounter Details Date Type Department Care Team (Late st Contact Info) Description 07/03/2017 [facility] Outpatient Visit [facility] [address] [place] [address] Document, Scanned Social History Tobacco Use Types Packs/Day Years Used Date Smoking Tobacco: Never Smokeless Tobacco: Never Alcohol Use Standard Drinks/Week Comments Yes 0.8 (1 standard drink = 0.6 oz p ure alcohol) Comments No Sex and Gender Information Value Date Recorded Sex Assigned at Not on file Legal Sex Female 4:15 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 Gender Identity Not on file Sexual Orientation Not on file 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 Not on file N ot on file Not on file documented as of this encounter Plan of Treatment Upcoming Encounters Date Type Department Care Team (Late Contact Info) Description 02/09/2025 9:30 AM CDT Office Visit [facility] - Family Medicine [address] [facility] [address] [place] [phone] Kiya Thompson, BROKER AGRICULTURAL PRODUCE-BRAID MAKER [address] [phone] documented as of this encounter Visit Diagnoses Not on filedocumented in this encounter Care Teams Financial Report Service Sales Agent Relationship Specialty Start Date End Date Colin France MD [address] [place] [address] PCP - General 10/18/10 11/21/23 Aditya Yip MD [address] [phone] PCP - General Family Medicine 11/22/23 Joselito Matute DO [address] [place] [address] Orthopedic Surgery 07/03/17 Aditya Yip MD [address] [phone] Family Medicine 11/22/23 documented as of this encounter
--- OUTSIDE RECORDS SUMMARY | 2025-02-02 09:09 | XMS_ITS | Clinical Summary ---
Author Organization [facility] Care Team Providers Care Packerhead Machine Operator Name Role Phone Unavailable Primary Care Provider Unavailabl e Social History Tobacco Use Types Packs/Day Years Used Date Smoking Tobacco: Never Assessed Comments Unknown Sex and Gender Information Value Date Recorded Sex Assigned at Not on file Legal Sex Female 7:05 AM REGULATORY SERVICES CONSULTANT Gender Identity Not on file Sexual Orientation [...]
--- OUTSIDE RECORDS SUMMARY | 2025-02-02 09:09 | XMS_ITS | Encounter Summary ---
Author Organization [facility] Address [address] [facility] [place] [address] Care Team Providers Care Printing Technician Name Role Phone Joselito Matute DO Unavailable [phone] Aditya Yip MD Unavailable [phone] Aditya Yip MD Primary Care Provider [phone] Encounter Details Date Type Department Care Team (Late st Contact Info) Description 01/29/2025 Orders Only [facility] Family [address] [address] Aditya Yip MD [address] [place] [phone] Prediabetes ; Vitamin D deficiency; Well adult exam Social History Tobacco Use Types Packs/Day Years Used Date Smoking Tobacco: Never Smokeless Tobacco: Never Alcohol Use Standard Drinks/Week Comments Yes 0.8 (1 standard drink = 0.6 oz p ure alcohol) Comments No Sex and Gender Information Value Date Recorded Sex Assigned at Not on file Legal Sex Female 4:15 AM HOSE TUBING BACKER Gender Identity Not on file Sexual Orientation Not on file 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 on file N ot on file Not on file documented as of this encounter Plan of Treatment Upcoming Encounters Date Type Department Care Team (Late st Contact Info) Description 02/09/2025 9:30 AM CDT Office Visit [facility] - Family [address] [place] [phone] Kiya Thompson, NETWORK FIREWALL ENGINEER-TUBE INSPECTOR [address] [phone] Scheduled Orders Name Type Priority Associated Diagnoses [...] facility documented in this encounter Care Teams Printing Technician Relationship Specialty Start Date End Date Aditya Yip MD [address] [phone] PCP - General Family Medicine 11/22/23 Joselito Matute DO Orthopedic Surgery 07/03/17 Aditya Yip MD [address] [address] Family Medicine 11/22/23 documented as of this encounter
--- NOTE | 2025-02-02 10:42 | ECG_ITS ---
Test Date: 2025-02-02 10:51:36 Measurements Intervals Lerna Rate: 67 P: 39 KS: 165 QRS: -7 QRSD: 96 T: 14 QT: 432 QTc: 457 Interpretive Statements SINUS RHYTHM WITH SINUS ARRHYTHMIA No previous ECG available for comparison Electronically Signed On 02-02-2025 15:03:53 CDT by Maxi aCi M.D.
[2025-02-02] MEDS: FAMOTIDINE 20 MG/2 ML VIAL IV PUSH (10:55)
[2025-02-02 11:10] LABS: Troponin I < 0.012 ng/mL (0.000-0.034)
--- NOTE | 2025-02-02 13:06 | WPDGICN ---
Assessment and Plan Assessment and plan (1) Common bile duct dilatation: Code(s): K83.8 - Other specified diseases of biliary tract Status: Acute Assessment and Plan: This patient's presentation with cholelithiasis, associated with biliary dilatation and notably increased transaminase levels, strongly suggests either a recent common bile duct stone passage or its current presence. Additionally, the CT scan describes findings consistent with acute cholecystitis. To further investigate, we will order an abdominal sonogram for a more precise evaluation of gallbladder inflammation, and an MRCP to definitively assess for choledocholithiasis. A surgical consultation will be obtained. If the MRCP demonstrates a common bile duct stone, an ERCP will be the next step in management. GI Consult Note Consult date/time: 02/02/25 13:06 Reason for consult: Cholelithiasis-biliary dilatation. HPI: A 49 year old female, Nava Lee, with no significant past medical history, presented to the emergency room with a severe, unremitting episode of upper hemiabdominal pain, rated 10/10, that started at midnight and lasted several hours. She additionally noted intermittent, self-limited postprandial pain, rated 8/10, over the preceding six days, denying associated dark urine, fever, chills, nausea, or vomiting. Upon ER evaluation, a CT scan revealed intra- and extrahepatic biliary dilatation, an inflamed, non-distended gallbladder containing stones, and a common bile duct diameter of 9.3 mm. Initial laboratory findings included a normal white count, AST 668, ALT 702, bilirubin 2.4, and alkaline phosphatase 210. At the moment of this consult, the patient is cooperative and asymptomatic. Review of Systems Review of Systems: All systems reviewed & are unremarkable except as noted in HPI and below PMFSH Past Medical History Medical History Obesity Surgical History Surgical History H/O arthroscopic knee surgery Social History Social History Smoking status: Never smoker Alcohol intake: current Substance use: never Substance use type: does not use Living arrangements: with family Spiritual care concerns: No Meds Home Medications and Allergies Home Medications ?Medication ?Instructions ?Recorded ?Confirmed ?Type multivit with minerals-iron 18 1 tablet PO DAILY 12/06/23 12/20/23 History mg-folic ac 400 mcg-vit K 25 mcg tablet (Adults Multivitamin) Allergies Allergy/AdvReac Type Severity Reaction Status Date / Time aspartame AdvReac Mild MOUTH Verified 02/02/25 06:46 ITCHING Vital Signs Vital Signs - 24 hr 02/02/25 06:43 02/02/25 08:39 02/02/25 10:58 Temperature 97.8 F Pulse Rate 70 76 68 Respiratory Rate 20 16 14 Blood Pressure 144/76 H 150/65 H 132/77 Pulse Oximetry 100 100 100 Exam Const: General: cooperative and healthy appearing Resp: Effort & Inspection: normal respiratory effort and able to speak in complete sentences Auscultation: clear to auscultation bilaterally Cardio: Rate: regular rate Rhythm: regular rhythm GI: Inspection: normal to inspection GI Palp: No No hepatosplenomegaly present Auscultation: normal bowel sounds Rectal Exam: deferred Skin: General skin exam: normal color Psych: Appearance: grossly normal Mental Status: mental status grossly normal Results Labs 02/02/25 08:35 02/02/25 08:35 Labs: Short CBC 02/02/25 Range/Units 08:35 WBC 5.2 (4.5-10.0) K/mm3 Hgb 14.0 (12.0-15.0) g/dL Hct 43.2 (37.0-47.0) % Plt Count 227 (150-375) k/mm3 [facility] 02/02/25 08:35 Sodium 138 Potassium 3.4 Chloride 101 Carbon Dioxide 31 H BUN 6 L Creatinine 0.56 L Glucose 168 H Calcium 10.2 Cardiac Enzymes 02/02/25 Range/Units 08:35 Troponin I < 0.012 (0.000-0.034) ng/mL Liver Function 02/02/25 Range/Units 08:35 Total Bilirubin 2.4 H (0.2-1.3) mg/dL AST 668 H (14-36) U/L ALT 702 H (6-35) U/L Alkaline Phosphatase 210 H (38-126) U/L Albumin 4.6 (3.5-5.1) g/dL Urine 02/02/25 Range/Units 08:35 Urine Color Dark yellow (Yellow) Urine Appearance Clear (Clear) Urine pH 6.0 (5.0-9.0) Ur Specific [place] 1.013 (1.001-1.035) Urine Protein Negative (Negative) mg/dL Urine Glucose (UA) Negative (Negative) mg/dL
--- NOTE | 2025-02-02 13:51 | ADMGEN ---
This patient, Nava Lee, was admitted to Medical Room 251-01. Patient/family oriented to hospital policies and general routines including ID bracelet, bed and alarms, visiting hours, pain management, procedures, bathroom and other care routines, personal items, smoking policy, room service/diet, and visiting hours. Information on how to activate the Rapid Response Team has been discussed. Patient/Family are encouraged to report perceived risks to care and to ask questions if they do not understand what they are told or what they should do.
[2025-02-02] MEDS: SODIUM CHLORIDE 0.9% IV 1,000 ML 100 ML IV CONT ×2 (14:00→22:20)
--- NOTE | 2025-02-02 14:40 | PM.IMHP ---
H&P: HPI History of Present Illness Date/Time: 02/02/25 12:45 Chief Complaint: Abdominal pain. Narrative: This is a 49-year-old female with prediabetes who presented to emergency department via private vehicle with complaints of abdominal pain. She gives a 1 week history of intermittent epigastric abdominal discomfort which she describes as a bloating sensation however on occasion it feels as though she is wearing a tight corset. It can be precipitated by fatty foods however sometimes it occurs during the middle of the night. It is associated with nausea and she reports having episodes of emesis on Sunday and today. She initially thought she was constipated as she has only been passing small, pebble like stools and a few days ago she digitally disimpacted herself without much success. She denies fever, chills, sweats, pruritus, jaundice, belching, hematemesis, melena, hematochezia, and dysuria. No history of gastritis, esophagitis, pancreatitis, or gallbladder disease. In the ED: Vital signs on arrival include temperature 97.8?, blood pressure 144/76, pulse 70, SpO2 100% on room air. Labs are significant for WBC count of 5.2, hemoglobin 14.0, carbon dioxide 31, BUN 6, creatinine 0.56, glucose 168, total bilirubin 2.4, AST 668, ALT 7 O2, alkaline phosphatase 210, lipase 98. CT scan showed intra and extrahepatic biliary ductal dilatation with significant gallbladder inflammation and significant hepatomegaly. She was given a L of normal saline and she is being admitted in this setting for pain control and GI and surgery input. Review of Systems Review of Systems: 12 systems were reviewed and are negative except for as per HPI. [facility] Past Medical History Medical History (Updated 02/02/25 @ 21:34 by Tawana James PA-C) Prediabetes Obesity Surgical History Surgical History (Updated 02/02/25 @ 21:26 by Tawana James PA-C) History of arthroscopic knee surgery History of open reduction and internal fixation (ORIF) procedure repair of right humeral fracture Social History Social History (Updated 02/02/25 @ 21:27 by Tawana James PA-C) Social History: Surrogate medical decision maker: Rayvicky Lee, spouse. Code status: Full code. Smoking status: Never smoker Alcohol intake: never Substance use: never Substance use type: does not use Do You Feel Safe in your Home?: Yes Lack of Transportation: No Lack of Food: Never True Current Housing: I Have Housing Concerned About Future Housing: No Difficulty Paying Gas/Electric Bills: No Difficulty Paying for Meds: No Currently Unemployed: No Education: Associate Degree Difficulty w/ Childcare or Family Care: No Living arrangements: with family Additional living arrangements comments: Lives with spouse and daughter in [place]. 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 Spiritual care concerns: No Meds Home Medications and Allergies Home Medications ?Medication ?Instructions ?Recorded ?Confirmed ?Type multivit with minerals-iron 18 1 tablet PO DAILY 12/06/23 02/02/25 History mg-folic ac 400 mcg-vit K 25 mcg tablet (Adults Multivitamin) Allergies Allergy/AdvReac Type Severity Reaction Status Date / Time aspartame AdvReac Mild MOUTH Verified 02/02/25 06:46 ITCHING Vital Signs Vital Signs - 24 hr 02/02/25 06:43 02/02/25 08:39 02/02/25 10:58 Temperature 97.8 F Pulse Rate 70 76 68 Respiratory Rate 20 16 14 Blood Pressure 144/76 H 150/65 H 132/77 Pulse Oximetry 100 100 100 02/02/25 13:08 02/02/25 13:59 Temperature 97.5 F L Pulse Rate 88 79 Respiratory Rate 18 16 Blood Pressure 128/89 154/79 H Pulse Oximetry 100 99 Exam Narrative: General: Nontoxic-appearing female sitting up in bed in no acute distress. Weight: 75 kg. BMI: 32.3. HEENT: PERRL, EOMI. Sclera anicteric. Tacky mucous membranes. Neck: Supple. Respiratory: Lungs are clear to auscultation bilaterally. Cardiovascular: Regular rate and rhythm with S1-S2. Gastrointestinal: Abdomen is soft and nondistended with positive bowel sounds. Somewhat tender to deeper palpation in the right upper quadrant. No guarding or rebound tenderness. Negative Lai sign. Skin: Warm and dry. Extremities: No cyanosis, clubbing, or edema. Radial and pedal pulses intact. Neurological: Alert. Cranial nerves 2-12 are grossly intact. No gross focal deficits to casual conversation. Psychiatric: Pleasant and cooperative with normal mood and affect. Judgment and insight intact. H&P: Results Labs Labs: Short CBC 02/02/25 Range/Units 08:35 WBC 5.2 (4.5-10.0) K/mm3 Hgb 14.0 (12.0-15.0) g/dL Hct 43.2 (37.0-47.0) % Plt Count 227 (150-375) k/mm3 BMP 02/02/25 08:35 Sodium 138 Potassium 3.4 Chloride 101 Carbon Dioxide 31 H BUN 6 L Creatinine 0.56 L Glucose 168 H Calcium 10.2 Cardiac Enzymes 02/02/25 Range/Units 08:35 Troponin I < 0.012 (0.000-0.034) ng/mL Liver Function 02/02/25 Range/Units 08:35 Total Bilirubin 2.4 H (0.2-1.3) mg/dL AST 668 H (14-36) U/L ALT 702 H (6-35) U/L Alkaline Phosphatase 210 H (38-126) U/L Albumin 4.6 (3.5-5.1) g/dL Urine 02/02/25 Range/Units 08:35 Urine Color Dark yellow (Yellow) Urine Appearance Clear (Clear) Urine pH 6.0 (5.0-9.0) Ur Specific [place] 1.013 (1.001-1.035) Urine Protein Negative (Negative) mg/dL Urine Glucose (UA) Negative (Negative) mg/dL Imaging Abdomen/Pelvis CT 02/02/25 10:25 IMPRESSION: Intra and extrahepatic biliary ductal dilatation without gallbladder enlargement but with significant gallbladder inflammation. No pancreatic ductal dilatation is identified No discrete ampullary mass is visualized with cross-sectional imaging. No calcified stone is visualized as a source of obstruction. Significant hepatomegaly. Trace right basilar atelectasis Assessment and Plan Assessment and plan (1) Dilated bile duct: Code(s): K83.8 - Other specified diseases of biliary tract Status: Acute (2) Common bile duct dilatation: Code(s): K83.8 - Other specified diseases of biliary tract Status: Acute (3) Cholelithiasis with cholecystitis: Code(s): K80.10 - Calculus of gallbladder with chronic cholecystitis without obstruction Status: Acute (4) Transaminitis: Code(s): R74.01 - Elevation of levels of liver transaminase levels Status: Acute (5) Hepatomegaly: Code(s): R16.0 - Hepatomegaly, not elsewhere classified Status: Acute (6) Prediabetes: Code(s): R73.03 - Prediabetes Status: Acute Plan The patient presented to the emergency department for evaluation of upper abdominal pain, nausea, and vomiting intermittently over the past 1 week as detailed in HPI. Labs, imaging, EKG, and all reports were personally reviewed. CT scan showed a significantly inflamed gallbladder, intra and extrahepatic biliary ductal dilatation, and a dilated common bile duct without evidence of obstruction. She has been started on empiric ceftriaxone and metronidazole pending right upper quadrant ultrasound. Analgesics and antiemetics are available as needed. She will be NPO after midnight for MRCP tomorrow and possibly ERCP. GI and surgery have been consulted for their input. Random glucose was 168; check hemoglobin A1c. Findings and treatment plan were discussed with the patient and her who was at bedside. Questions were solicited and answered to satisfaction. The patient's medical management will be taken over by the hospitalist team in a.m. Quality VTE Prophylaxis VTE prophylaxis: mechanical ordered If No VTE Prophylaxis Answer both mechanical and pharmacologic: Reason no pharmacologic proph: medical contraindication (hold as she may require procedure) The patient has been admitted under observation status. Hospitalist [facility] Advance Care Plan I have confirmed that the patient's Advanced Care Plan is present, code status is documented, or surrogate decision maker is listed in patient medical record.: Yes Medication Reconciliation I have utilized all available resources to obtain, update and review the patients current medications (includes all prescriptions, OTC, herbals, cannabis, and nutritional supplements).: Yes
[2025-02-02] MEDS: MORPHINE SULFATE (*CRX) 4 MG/ML INJ IV PUSH (16:21)
[2025-02-02] MEDS: ONDANSETRON INJ 4 MG/2 ML VIAL IV PUSH (16:28)
[2025-02-02] MEDS: metroNIDAZOLE 500 MG/ISO 100ML 500 MG/100 ML BAG 100 MG IVPB (22:08)
[2025-02-03] MEDS: metroNIDAZOLE 500 MG/ISO 100ML 500 MG/100 ML BAG 100 MG IVPB ×3 (04:18→20:13)
[2025-02-03 04:20] VITALS: BP 113/71; PULSE 67; RESP 16; TEMP 37.3; O2SAT 92
[2025-02-03 05:36] LABS: Hematocrit 35.8 % (37.0-47.0); Hemoglobin 11.3 g/dL (12.0-15.0); Mean Corpuscular HGB Conc 31.6 g/dl (32-36); Mean Corpuscular Hemoglobin 28.2 pg (26-34); Mean Corpuscular Volume 89.3 fl (80-100); Mean Platelet Volume 10.3 fl (7.4-10.4); Platelet Count Result 176 k/mm3 (150-375); Red Blood Count 4.01 M/mm3 (4.2-5.4); Red Cell Distribution Width 14.5 % (11.5-14.5); White Blood Count 5.4 K/mm3 (4.5-10.0)
[2025-02-03 06:39] LABS: Alanine Aminotransferase 520 U/L (6-35); Albumin Level 3.3 g/dL (3.5-5.1); Alkaline Phosphatase 178 U/L (38-126); Anion Gap 4 mmol/L (4-12); Aspartate Amino Transferase 268 U/L (14-36); Bilirubin,Total 0.7 mg/dL (0.2-1.3); Blood Urea Nitrogen 8 mg/dL (7-17); Carbon Dioxide 28 mmol/L (22-30); Chloride 108 mmol/L (98-107); Estimated CRCL calculation 100 ml/min; Estimated Glomerular Filt Rate > 60; Glucose 119 mg/dL (65-110); Magnesium 2.1 mg/dL (1.6-2.3); Potassium 2.9 mmol/L (3.4-5.0); Sodium 140 mmol/L (137-145)
--- NOTE | 2025-02-03 08:11 | WPDGIPROGNO ---
Progress Note: A&P Assessment and Plan (1) Dilated bile duct: Code(s): K83.8 - Other specified diseases of biliary tract Status: Acute (2) Cholecystitis: Code(s): K81.9 - Cholecystitis, unspecified Status: Acute Assessment and Plan: The patient is clinically stable, covered with antibiotics and bilirubin, transaminases and alkaline phosphatase trending down. Will wait for results of MRCP and decide the next course of action, as discussed in yesterday's note. Subjective Date/time seen: 02/03/25 08:11 Interval history: Patient had a good night, did not require analgesics. Currently being covered with ceftriaxone and metronidazole. MRCP not done yet. Exam Narrative: Abdomen: Soft, nontender, nondistended, no changes from yesterday's. Rest of the exam within normal limits. Objective Data Vital Signs Vital Signs: Vital Signs - 24 hr 02/02/25 08:39 02/02/25 10:58 02/02/25 13:08 Temperature Pulse Rate 76 68 88 Respiratory Rate 16 14 18 Blood Pressure 150/65 H 132/77 128/89 Pulse Oximetry 100 100 100 Oxygen Delivery Fraction of Inspired Oxygen 02/02/25 13:59 02/02/25 14:45 02/02/25 19:32 Temperature 97.5 F L Pulse Rate 79 79 74 Respiratory Rate 16 16 20 Blood Pressure 154/79 H Pulse Oximetry 99 99 98 Oxygen Delivery Room Air Room Air Fraction of Inspired Oxygen 21 02/02/25 20:15 02/03/25 04:20 Temperature 100.0 F H 99.2 F Pulse Rate 79 67 Respiratory Rate 12 16 Blood Pressure 126/75 113/71 Pulse Oximetry 95 92 Oxygen Delivery Fraction of Inspired Oxygen Intake/Output Intake/Output: Intake & Output 01/31/25 02/01/25 02/02/25 02/03/25 23:59 23:59 23:59 23:59 Intake Total 983.3 Output Total 300 Balance 983.3 -300 Meds/Results Medications: Active Medications Generic Name Dose Route Start Last Admin Trade Name Freq PRN Reason Stop Dose Admin Acetaminophen 650 mg 02/02/25 21:30 Acetaminophen 325 Mg Tablet PO Q6H PRN Mild Pain (1-3) or Fever Sodium Chloride 1,000 mls @ 100 mls/hr 02/02/25 12:50 02/02/25 22:20 Normal Saline Iv IV CONT 100 mls/hr .Q10H BOLA Administration Metronidazole 500 mg in 100 mls @ 100 mls/hr 02/02/25 21:00 02/03/25 04:18 Flagyl 500 Mg/Iso Soln 100 Ml IVPB 100 mls/hr Q8H BOLA Administration Ceftriaxone Sodium 1 gm in 50 mls @ 100 mls/hr 02/02/25 22:00 02/02/25 23:15 Rocephin 1 Gm/Ns 50 Ml IVPB Infused Q24H BOLA Infusion Morphine Sulfate 4 mg 02/02/25 12:50 02/02/25 16:21 Morphine Sulfate (*Crx) 4 Mg/Ml Inj IV PUSH 4 mg Q2H PRN Administration Pain Rated 7-10 Morphine Sulfate 2 mg 02/02/25 21:30 Morphine Sulfate (*Crx) 2 Mg/Ml Inj IV PUSH Q4H PRN Pain Rated 4-6 Ondansetron HCl 4 mg 02/02/25 12:50 02/02/25 16:28 Ondansetron Inj 4 Mg/2 Ml Vial IV PUSH 4 mg Q4H PRN Administration Nausea Ondansetron HCl 4 mg 02/02/25 21:30 Ondansetron Inj 4 Mg/2 Ml Vial IV PUSH Q6H PRN Nausea And Vomiting Radiology Results: ITS Impressions Abdomen/Pelvis CT 02/02/25 10:25 IMPRESSION: Intra and extrahepatic biliary ductal dilatation without gallbladder enlargement but with significant gallbladder inflammation. No pancreatic ductal dilatation is identified No discrete ampullary mass is visualized with cross-sectional imaging. No calcified stone is visualized as a source of obstruction. Significant hepatomegaly. Trace right basilar atelectasis Labs Labs: Laboratory Results - last 24 hr 02/02/25 02/02/25 02/03/25 08:35 08:39 05:21 WBC 5.2 5.4 RBC 4.87 4.01 L Hgb 14.0 11.3 L Hct 43.2 35.8 L MCV 88.7 89.3 MCH 28.7 28.2 MCHC 32.4 31.6 L RDW 14.1 14.5 Plt Count 227 176 MPV 10.4 10.3 Immature Gran % (Auto) 0.4 Neut % (Auto) 81.8 H Lymph % (Auto) 13.8 L [place] % (Auto) 3.6 Eos % (Auto) 0.0 Baso % (Auto) 0.4 Lymph # (Auto) 0.72 L [place] # (Auto) 0.2 Eos # (Auto) 0.0 Baso # (Auto) 0.0 Abs Immat Gran (auto) 0.02 Absolute Neuts (auto) 4.3 Absolute Nucleated RBC 0.000 Nucleated RBC % 0.0 Sodium 138 140 Potassium 3.4 2.9 L Chloride 101 108 H Carbon Dioxide 31 H 28 Anion Gap 6 4 BUN 6 L 8 Creatinine 0.56 L 0.53 L Estim Creat Clear Calc 94 100 Estimated GFR > 60 > 60 Glucose 168 H 119 H Calcium 10.2 8.0 L Magnesium 2.1 Total Bilirubin 2.4 H 0.7 AST 668 H 268 H ALT 702 H 520 H Alkaline Phosphatase 210 H 178 H Troponin I < 0.012 Total Protein 8.0 6.0 L Albumin 4.6 3.3 L Lipase 98 Urine Color Dark yellow Urine Appearance Clear Urine pH 6.0 Ur Specific [place] 1.013 Urine Protein Negative Urine Glucose (UA) Negative Urine Ketones Negative Ur Blood (Man) 2+ H Urine Nitrate Negative Urine Bilirubin 1+ H Urine Urobilinogen 2.0 H Leukocyte Esterase Rfl Trace H Urine RBC 6-10 H Urine WBC 0-5 Ur Squamous Epith Cells Occasional Urine Bacteria None seen Urine Casts 0-2 POC Urine HCG, Qual Negative
[2025-02-03 08:57] VITALS: PULSE 67; RESP 16; O2SAT 92
--- NOTE | 2025-02-03 09:07 | PM.IMPN ---
Progress Note: A&P Assessment and Plan (1) Dilated bile duct: Code(s): K83.8 - Other specified diseases of biliary tract Status: Acute (2) Common bile duct dilatation: Code(s): K83.8 - Other specified diseases of biliary tract Status: Acute (3) Cholelithiasis with cholecystitis: Code(s): K80.10 - Calculus of gallbladder with chronic cholecystitis without obstruction Status: Acute (4) Transaminitis: Code(s): R74.01 - Elevation of levels of liver transaminase levels Status: Acute (5) Hepatomegaly: Code(s): R16.0 - Hepatomegaly, not elsewhere classified Status: Acute (6) Prediabetes: Code(s): R73.03 - Prediabetes Status: Acute Plan The patient presented to the emergency department for evaluation of upper abdominal pain, nausea, and vomiting intermittently over the past [address] scan showed a significantly inflamed gallbladder, intra and extrahepatic biliary ductal dilatation, and a dilated common bile duct without evidence of obstruction. She has been started on ceftriaxone and metronidazole Analgesics and antiemetics are available as needed. GI/surgery consulted - MRCP done, there is no bile duct dilatation or filling defects suggesting a stone. - bilirubin, transaminases and alkaline phosphatase trending down -trend daily labs Surgery consulted -miralax, colace ordered Time Spent With Patient Time with patient: 25 - 35 minutes Subjective Date/time seen: 02/03/25 09:07 Interval history: This is a 49-year-old female with prediabetes who admitted with complaints of abdominal pain. In the ED: WBC count of 5.2, hg 14.0, carbon dioxide 31, BUN 6, creatinine 0.56, glucose 168, total bilirubin 2.4, AST 668, ALT 7 O2, alkaline phosphatase 210, lipase 98. CT - intra and extrahepatic biliary ductal dilatation with significant gallbladder inflammation and significant hepatomegaly. Pt received 1 L NS and she admitted for pain control, GI and surgery input. She is on IV ceftriaxone and metronidazole. MRCP not done yet. Pain is controlled. Review of Systems Review of Systems: 12 systems were reviewed and are negative except for as per HPI. Exam Narrative: General: Nontoxic-appearing female Weight: 75 kg. BMI: 32.3. HEENT: PERRL, EOMI. Sclera anicteric. Tacky mucous membranes. Neck: Supple. Respiratory: Lungs are clear to auscultation bilaterally. Cardiovascular: Regular rate and rhythm with S1-S2. Gastrointestinal: Abdomen is soft and nondistended with positive bowel sounds. Somewhat tender to deeper palpation in the right upper quadrant. No guarding or rebound tenderness. Negative Lai sign. Skin: Warm and dry. Extremities: No cyanosis, clubbing, or edema. Radial and pedal pulses intact. Neurological: Alert. Cranial nerves 2-12 are grossly intact. No gross focal deficits to casual conversation. Psychiatric: Pleasant and cooperative with normal mood and affect. Judgment and insight intact. Const: General: comfortable Objective Data Vital Signs Vital Signs: Vital Signs - 24 hr 02/02/25 10:58 02/02/25 13:08 02/02/25 13:59 Temperature 97.5 F L Pulse Rate 68 88 79 Respiratory Rate 14 18 16 Blood Pressure 132/77 128/89 154/79 H Pulse Oximetry 100 100 99 Oxygen Delivery Fraction of Inspired Oxygen 02/02/25 14:45 02/02/25 19:32 02/02/25 20:15 Temperature 100.0 F H Pulse Rate 79 74 79 Respiratory Rate 16 20 12 Blood Pressure 126/75 Pulse Oximetry 99 98 95 Oxygen Delivery Room Air Room Air Fraction of Inspired Oxygen 21 02/03/25 04:20 02/03/25 08:57 Temperature 99.2 F Pulse Rate 67 67 Respiratory Rate 16 16 Blood Pressure 113/71 Pulse Oximetry 92 92 Oxygen Delivery Room Air Fraction of Inspired Oxygen 21 Intake/Output Intake/Output: Intake & Output 01/31/25 02/01/25 02/02/25 02/03/25 23:59 23:59 23:59 23:59 Intake Total 983.3 Output Total 300 Balance 983.3 -300 Meds/Results Medications: Active Medications Generic Name Dose Route Start Last Admin Trade Name Freq PRN Reason Stop Dose Admin Acetaminophen 650 mg 02/02/25 21:30 Acetaminophen 325 Mg Tablet PO Q6H PRN Mild Pain (1-3) or Fever Sodium Chloride 1,000 mls @ 100 mls/hr 02/02/25 12:50 02/02/25 22:20 Normal Saline Iv IV CONT 100 mls/hr .Q10H BOLA Administration Metronidazole 500 mg in 100 mls @ 100 mls/hr 02/02/25 21:00 02/03/25 04:18 Flagyl 500 Mg/Iso Soln 100 Ml IVPB 100 mls/hr Q8H BOLA Administration Ceftriaxone Sodium 1 gm in 50 mls @ 100 mls/hr 02/02/25 22:00 02/02/25 23:15 Rocephin 1 Gm/Ns 50 Ml IVPB Infused Q24H BOLA Infusion Morphine Sulfate 4 mg 02/02/25 12:50 02/02/25 16:21 Morphine Sulfate (*Crx) 4 Mg/Ml Inj IV PUSH 4 mg Q2H PRN Administration Pain Rated 7-10 Morphine Sulfate 2 mg 02/02/25 21:30 Morphine Sulfate (*Crx) 2 Mg/Ml Inj IV PUSH Q4H PRN Pain Rated 4-6 Ondansetron HCl 4 mg 02/02/25 12:50 02/02/25 16:28 Ondansetron Inj 4 Mg/2 Ml Vial IV PUSH 4 mg Q4H PRN Administration Nausea Ondansetron HCl 4 mg 02/02/25 21:30 Ondansetron Inj 4 Mg/2 Ml Vial IV PUSH Q6H PRN Nausea And Vomiting Radiology Results: ITS Impressions Abdomen/Pelvis CT 02/02/25 10:25 IMPRESSION: Intra and extrahepatic biliary ductal dilatation without gallbladder enlargement but with significant gallbladder inflammation. No pancreatic ductal dilatation is identified No discrete ampullary mass is visualized with cross-sectional imaging. No calcified stone is visualized as a source of obstruction. Significant hepatomegaly. Trace right basilar atelectasis Labs Labs: Laboratory Results - last 24 hr 02/02/25 02/03/25 08:35 05:21 WBC 5.4 RBC 4.01 L Hgb 11.3 L Hct 35.8 L MCV 89.3 MCH 28.2 MCHC 31.6 L RDW 14.5 Plt Count 176 MPV 10.3 Sodium 140 Potassium 2.9 L Chloride 108 H Carbon Dioxide 28 Anion Gap 4 BUN 8 Creatinine 0.53 L Estim Creat Clear Calc 100 Estimated GFR > 60 Glucose 119 H Calcium 8.0 L Magnesium 2.1 Total Bilirubin 0.7 AST 268 H ALT 520 H Alkaline Phosphatase 178 H Troponin I < 0.012 Total Protein 6.0 L Albumin 3.3 L Urine Color Dark yellow Urine Appearance Clear Urine pH 6.0 Ur Specific [place] 1.013 Urine Protein Negative Urine Glucose (UA) Negative Urine Ketones Negative Ur Blood (Man) 2+ H Urine Nitrate Negative Urine Bilirubin 1+ H Urine Urobilinogen 2.0 H Leukocyte Esterase Rfl Trace H Urine RBC 6-10 H Urine WBC 0-5 Ur Squamous Epith Cells Occasional Urine Bacteria None seen Urine Casts 0-2 Quality VTE Prophylaxis VTE prophylaxis: mechanical ordered
[2025-02-03] MEDS: SODIUM CHLORIDE 0.9% IV 1,000 ML 100 ML IV CONT (10:06)
--- NOTE | 2025-02-03 12:38 | WPDGIPROGNO ---
Progress Note: A&P Assessment and Plan (1) Cholelithiasis with cholecystitis: Code(s): K80.10 - Calculus of gallbladder with chronic cholecystitis without obstruction Status: Acute Assessment and Plan: Patient admitted with a biliary colic yesterday afternoon with a favorable clinical and biochemical course. She probably passed a stone through the bile duct and, according to the MRCP just reviewed with the radiologist, there is no bile duct dilatation or filling defects suggesting a stone. Surgical consultation awaited, she will probably get a laparoscopic cholecystectomy with intraoperative cholangiogram. Subjective Date/time seen: 02/03/25 12:38 Interval history: The patient did not have further abdominal pain crisis during the night. Bilirubin down, from 2.4-0.7, transaminases as well as Alk-phos frankly trending down. Exam Narrative: anicteric, not acutely distressed. Abdomen: Soft, nontender, nondistended, no hepatosplenomegaly. Objective Data Vital Signs Vital Signs: Vital Signs - 24 hr 02/02/25 13:08 02/02/25 13:59 02/02/25 14:45 Temperature 97.5 F L Pulse Rate 88 79 79 Respiratory Rate 18 16 16 Blood Pressure 128/89 154/79 H Pulse Oximetry 100 99 99 Oxygen Delivery Room Air Fraction of Inspired Oxygen 02/02/25 19:32 02/02/25 20:15 02/03/25 04:20 Temperature 100.0 F H 99.2 F Pulse Rate 74 79 67 Respiratory Rate 20 12 16 Blood Pressure 126/75 113/71 Pulse Oximetry 98 95 92 Oxygen Delivery Room Air Fraction of Inspired Oxygen 21 02/03/25 08:57 Temperature Pulse Rate 67 Respiratory Rate 16 Blood Pressure Pulse Oximetry 92 Oxygen Delivery Room Air Fraction of Inspired Oxygen 21 Intake/Output Intake/Output: Intake & Output 01/31/25 02/01/25 02/02/25 02/03/25 23:59 23:59 23:59 23:59 Intake Total 983.3 1000 Output Total 300 Balance 983.3 700 Meds/Results Medications: Active Medications Generic Name Dose Route Start Last Admin Trade Name Freq PRN Reason Stop Dose Admin Acetaminophen 650 mg 02/02/25 21:30 Acetaminophen 325 Mg Tablet PO Q6H PRN Mild Pain (1-3) or Fever Sodium Chloride 1,000 mls @ 100 mls/hr 02/02/25 12:50 02/03/25 10:06 Normal Saline Iv IV CONT 100 mls/hr .Q10H BOLA Administration Metronidazole 500 mg in 100 mls @ 100 mls/hr 02/02/25 21:00 02/03/25 04:18 Flagyl 500 Mg/Iso Soln 100 Ml IVPB 100 mls/hr Q8H BOLA Administration Ceftriaxone Sodium 1 gm in 50 mls @ 100 mls/hr 02/02/25 22:00 02/02/25 23:15 Rocephin 1 Gm/Ns 50 Ml IVPB Infused Q24H BOLA Infusion Morphine Sulfate 4 mg 02/02/25 12:50 02/02/25 16:21 Morphine Sulfate (*Crx) 4 Mg/Ml Inj IV PUSH 4 mg Q2H PRN Administration Pain Rated 7-10 Morphine Sulfate 2 mg 02/02/25 21:30 Morphine Sulfate (*Crx) 2 Mg/Ml Inj IV PUSH Q4H PRN Pain Rated 4-6 Ondansetron HCl 4 mg 02/02/25 12:50 02/02/25 16:28 Ondansetron Inj 4 Mg/2 Ml Vial IV PUSH 4 mg Q4H PRN Administration Nausea Ondansetron HCl 4 mg 02/02/25 21:30 Ondansetron Inj 4 Mg/2 Ml Vial IV PUSH Q6H PRN Nausea And Vomiting Radiology Results: ITS Impressions Abdomen/Pelvis CT 02/02/25 10:25 IMPRESSION: Intra and extrahepatic biliary ductal dilatation without gallbladder enlargement but with significant gallbladder inflammation. No pancreatic ductal dilatation is identified No discrete ampullary mass is visualized with cross-sectional imaging. No calcified stone is visualized as a source of obstruction. Significant hepatomegaly. Trace right basilar atelectasis Upper Quadrant Ultrasound 02/03/25 09:22 IMPRESSION: 1: Contracted gallbladder with stones. Cannot exclude gallbladder wall thickening. Labs Labs: Laboratory Results - last 24 hr 02/03/25 05:21 WBC 5.4 RBC 4.01 L Hgb 11.3 L Hct 35.8 L MCV 89.3 MCH 28.2 MCHC 31.6 L RDW 14.5 Plt Count 176 MPV 10.3 Sodium 140 Potassium 2.9 L Chloride 108 H Carbon Dioxide 28 Anion Gap 4 BUN 8 Creatinine 0.53 L Estim Creat Clear Calc 100 Estimated GFR > 60 Glucose 119 H Calcium 8.0 L Magnesium 2.1 Total Bilirubin 0.7 AST 268 H ALT 520 H Alkaline Phosphatase 178 H Total Protein 6.0 L Albumin 3.3 L
--- NOTE | 2025-02-03 12:58 | PM.CNGS ---
Assessment and Plan Assessment and plan (1) Cholelithiasis with cholecystitis: Code(s): K80.10 - Calculus of gallbladder with chronic cholecystitis without obstruction Status: Acute Assessment and Plan: Patient is not experiencing any abdominal plain, nausea, or vomiting today. MRCP showed evidence of cholelithiasis with no choledocholithiasis. No bile duct dilation of filling defects suggesting a stone. Consider laparoscopic cholecystectomy +/- intraoperative cholangiogram. History of Present Illness Consult details Consult date: 02/03/25 Narrative: Patient is a 49-year-old female who presented to ED for diffuse epigastric pain and nausea/vomiting that started 6 days ago, but went away over the weekend and returned with increased severity yesterday. She notes associated bloating and constipation with her last bowel movement being 2 days ago. Patient notes that her stools have only been small, pebble like stools. She notes her last episode of emesis to be last night. Today, she notes less pain and no nausea/vomiting. No history of any prior abdominal surgeries. RUQ US today showed contracted gallbladder with stones. MRCP showed cholelithiasis with no evident choledocholithiasis. [facility] Past Medical History Medical History (Updated 02/02/25 @ 21:34 by Tawana James PA-C) Prediabetes Obesity Surgical History Surgical History (Updated 02/02/25 @ 21:26 by Tawana James PA-C) History of arthroscopic knee surgery History of open reduction and internal fixation (ORIF) procedure repair of right humeral fracture Social History Social History (Updated 02/02/25 @ 21:27 by Tawana James PA-C) Social History: Surrogate medical decision maker: Ray Lee, spouse. Code status: Full code. Smoking status: Never smoker Alcohol intake: never Substance use: never Substance use type: does not use Do You Feel Safe in your Home?: Yes Lack of Transportation: No Lack of Food: Never True Current Housing: I Have Housing Concerned About Future Housing: No Difficulty Paying Gas/Electric Bills: No Difficulty Paying for Meds: No Currently Unemployed: No Education: Associate Degree Difficulty w/ Childcare or Family Care: No Living arrangements: with family Additional living arrangements comments: Lives with spouse and daughter in [place]. 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 Spiritual care concerns: No Meds Home Medications and Allergies Home Medications ?Medication ?Instructions ?Recorded ?Confirmed ?Type multivit with minerals-iron 18 1 tablet PO DAILY 12/06/23 02/02/25 History mg-folic ac 400 mcg-vit K 25 mcg tablet (Adults Multivitamin) Allergies Allergy/AdvReac Type Severity Reaction Status Date / Time aspartame AdvReac Mild MOUTH Verified 02/02/25 06:46 ITCHING Vital Signs Vital Signs - 24 hr 02/02/25 13:08 02/02/25 13:59 02/02/25 14:45 Temperature 97.5 F L Pulse Rate 88 79 79 Respiratory Rate 18 16 16 Blood Pressure 128/89 154/79 H Pulse Oximetry 100 99 99 Oxygen Delivery Room Air Fraction of Inspired Oxygen 02/02/25 19:32 02/02/25 20:15 02/03/25 04:20 Temperature 100.0 F H 99.2 F Pulse Rate 74 79 67 Respiratory Rate 20 12 16 Blood Pressure 126/75 113/71 Pulse Oximetry 98 95 92 Oxygen Delivery Room Air Fraction of Inspired Oxygen 21 02/03/25 08:57 Temperature Pulse Rate 67 Respiratory Rate 16 Blood Pressure Pulse Oximetry 92 Oxygen Delivery Room Air Fraction of Inspired Oxygen 21 Exam GI: Inspection: non-distended GI Palp: Yes Soft to palpation, No Tenderness to palpation present (GI) and No Guarding due to palpation present (GI) Auscultation: normal bowel sounds Other: negative Lai's sign Results Labs 02/03/25 05:21 02/03/25 05:21 Labs: Abnormal lab results 02/03/25 Range/Units 05:21 RBC 4.01 L (4.2-5.4) M/mm3 Hgb 11.3 L (12.0-15.0) g/dL Hct 35.8 L (37.0-47.0) % MCHC 31.6 L (32-36) g/dl Potassium 2.9 L (3.4-5.0) mmol/L Chloride 108 H (98-107) mmol/L Creatinine 0.53 L (0.7-1.0) mg/dL Glucose 119 H (65-110) mg/dL Calcium 8.0 L (8.4-10.2) mg/dL AST 268 H (14-36) U/L ALT 520 H (6-35) U/L Alkaline Phosphatase 178 H (38-126) U/L Total Protein 6.0 L (6.3-8.2) g/dL Albumin 3.3 L (3.5-5.1) g/dL Diabetes panel 02/03/25 Range/Units 05:21 Sodium 140 (137-145) mmol/L Potassium 2.9 L (3.4-5.0) mmol/L Chloride 108 H (98-107) mmol/L Carbon Dioxide 28 (22-30) mmol/L BUN 8 (7-17) mg/dL Creatinine 0.53 L (0.7-1.0) mg/dL Glucose 119 H (65-110) mg/dL Calcium 8.0 L (8.4-10.2) mg/dL AST 268 H (14-36) U/L ALT 520 H (6-35) U/L Alkaline Phosphatase 178 H (38-126) U/L Total Protein 6.0 L (6.3-8.2) g/dL Albumin 3.3 L (3.5-5.1) g/dL Calcium panel 02/03/25 Range/Units 05:21 Calcium 8.0 L (8.4-10.2) mg/dL Albumin 3.3 L (3.5-5.1) g/dL Pituitary panel 02/03/25 Range/Units 05:21 Sodium 140 (137-145) mmol/L Potassium 2.9 L (3.4-5.0) mmol/L Chloride 108 H (98-107) mmol/L Carbon Dioxide 28 (22-30) mmol/L BUN 8 (7-17) mg/dL Creatinine 0.53 L (0.7-1.0) mg/dL Glucose 119 H (65-110) mg/dL Calcium 8.0 L (8.4-10.2) mg/dL Adrenal panel 02/03/25 Range/Units 05:21 Sodium 140 (137-145) mmol/L Potassium 2.9 L (3.4-5.0) mmol/L Chloride 108 H (98-107) mmol/L Carbon Dioxide 28 (22-30) mmol/L BUN 8 (7-17) mg/dL Creatinine 0.53 L (0.7-1.0) mg/dL Glucose 119 H (65-110) mg/dL Calcium 8.0 L (8.4-10.2) mg/dL Total Bilirubin 0.7 (0.2-1.3) mg/dL AST 268 H (14-36) U/L ALT 520 H (6-35) U/L Alkaline Phosphatase 178 H (38-126) U/L Total Protein 6.0 L (6.3-8.2) g/dL Albumin 3.3 L (3.5-5.1) g/dL All other labs normal.
[2025-02-03 14:00] VITALS: BP 125/79; PULSE 68; RESP 14; TEMP 36.4; O2SAT 96
[2025-02-03 20:09] VITALS: BP 116/64; PULSE 69; RESP 16; TEMP 36.6; O2SAT 94
[2025-02-03 21:33] VITALS: PULSE 67; RESP 20; O2SAT 97
[2025-02-04] VITALS (14 sets, daily range): BP systolic 90–136; BP diastolic 47–80; PULSE 58–89; RESP 8–18; TEMP 36.6–37.2; O2SAT 92–99
[2025-02-04] MEDS: SODIUM CHLORIDE 0.9% IV 1,000 ML 100 ML IV CONT ×2 (00:12→09:53)
[2025-02-04] MEDS: metroNIDAZOLE 500 MG/ISO 100ML 500 MG/100 ML BAG 100 MG IVPB ×3 (05:36→20:47)
[2025-02-04 06:10] LABS: Hematocrit 36.2 % (37.0-47.0); Hemoglobin 11.6 g/dL (12.0-15.0); Mean Corpuscular Hemoglobin 28.7 pg (26-34); Mean Corpuscular Volume 89.6 fl (80-100); Mean Platelet Volume 10.2 fl (7.4-10.4); Platelet Count Result 174 k/mm3 (150-375); Red Blood Count 4.04 M/mm3 (4.2-5.4); Red Cell Distribution Width 14.6 % (11.5-14.5); White Blood Count 6.4 K/mm3 (4.5-10.0)
[2025-02-04 06:24] LABS: Alanine Aminotransferase 361 U/L (6-35); Albumin Level 3.5 g/dL (3.5-5.1); Alkaline Phosphatase 161 U/L (38-126); Anion Gap 8 mmol/L (4-12); Aspartate Amino Transferase 98 U/L (14-36); Bilirubin,Total 0.4 mg/dL (0.2-1.3); Blood Urea Nitrogen 8 mg/dL (7-17); Carbon Dioxide 25 mmol/L (22-30); Chloride 106 mmol/L (98-107); Estimated CRCL calculation 114 ml/min; Estimated Glomerular Filt Rate > 60; Glucose 91 mg/dL (65-110); Potassium 2.9 mmol/L (3.4-5.0); Sodium 139 mmol/L (137-145)
--- NOTE | 2025-02-04 07:30 | P.PNIM_ITS ---
Progress Note: A&P Assessment and Plan (1) Dilated bile duct: Code(s): K83.8 - Other specified diseases of biliary tract Status: Acute (2) Common bile duct dilatation: Code(s): K83.8 - Other specified diseases of biliary tract Status: Acute (3) Cholelithiasis with cholecystitis: Code(s): K80.10 - Calculus of gallbladder with chronic cholecystitis without obstruction Status: Acute (4) Transaminitis: Code(s): R74.01 - Elevation of levels of liver transaminase levels Status: Acute (5) Hepatomegaly: Code(s): R16.0 - Hepatomegaly, not elsewhere classified Status: Acute (6) Prediabetes: Code(s): R73.03 - Prediabetes Status: Acute Plan The patient presented to the emergency department for evaluation of upper abdominal pain, nausea, and vomiting intermittently over the past [address] scan showed a significantly inflamed gallbladder, intra and extrahepatic biliary ductal dilatation, and a dilated common bile duct without evidence of obstruction. She has been started on ceftriaxone and metronidazole Analgesics and antiemetics are available as needed. GI/surgery consulted - MRCP done, there is no bile duct dilatation or filling defects suggesting a stone. - bilirubin, transaminases and alkaline phosphatase trending down -trend daily labs Surgery consulted -miralax, colace ordered Time Spent With Patient Time: 48 minutes Subjective Date/time seen: 02/04/25 09:45 Interval history: Feeling well today. No nausea vomiting or abdominal pain. Potassium low. LFTs improving Bilirubin down, from 2.4-0.7, transaminases as well as Alk-phos frankly trending down. Potassium 2.9 today. Mag 2.1 yesterday. Giving 80 40 IV, 40 PO & recheck potassium at 3pm Jesus 49-year-old female with prediabetes who presented to emergency department via private vehicle with complaints of abdominal pain. Elevated bilrubin. MRCP no evidence of choledocholithiasis. Planning OR for cholecystectomy today. Review of Systems Review of Systems: 12 systems were reviewed and are negativ e except for as per HPI. Exam Narrative: General: Nontoxic-appearing female Weight: 75 kg. BMI: 32.3. HEENT: PERRL, EOMI. Sclera anicteric. Tacky mucous membranes. Neck: Supple. Respiratory: Lungs are clear to auscultation bilaterally. Cardiovascular: Regular rate and rhythm with S1-S2. Gastrointestinal: Abdomen is soft and nondistended with positive bowel sounds. Somewhat tender to deeper palpation in the right upper quadrant. No guarding or rebound tenderness. Negative Lai sign. Skin: Warm and dry. Extremities: No cyanosis, clubbing, or edema. Radial and pedal pulses intact. Neurological: Alert. Cranial nerves 2-12 are grossly intact. No gross focal deficits to casual conversation. Psychiatric: Pleasant and cooperative with normal mood and affect. Judgment and insight intact. Const: General: comfortable Objective Data Vital Signs Vital Signs: Vital Signs - 24 hr 02/03/25 08:57 02/03/25 14:00 02/03/25 20:09 Temperature 97.6 F 97.9 F Pulse Rate 67 68 69 Respiratory Rate 16 14 16 Blood Pressure 125/79 116/64 Pulse Oximetry 92 96 94 Oxygen Delivery Room Air Fraction of Inspired Oxygen 21 02/03/25 21:33 02/04/25 05:40 Temperature 98.4 F Pulse Rate 67 73 Respiratory Rate 20 16 Blood Pressure 119/72 Pulse Oximetry 97 94 Oxygen Delivery Room Air Fraction of Inspired Oxygen 21 Intake/Output Intake/Output: Intake & Output 02/01/25 02/02/25 02/03/25 02/04/25 23:59 23:59 23:59 23:59 Intake Total 983.3 2470 Output Total 300 2 Balance 983.3 2170 -2 Meds/Results Medications: Active Medications Generic Name Dose Route Start Last Admin Trade Name Freq PRN Reason Stop Dose Admin Acetaminophen 650 mg 02/02/25 21:30 Acetaminophen 325 Mg Tablet PO Q6H PRN Mild Pain (1-3) or Fever Docusate Sodium 100 mg 02/03/25 13:42 Docusate Sodium 100 Mg Capsule PO Q12H PRN Constipation Sodium Chloride 1,000 mls @ 100 mls/hr 02/02/25 12:50 02/04/25 00:12 Normal Saline Iv IV CONT 100 mls/hr .Q10H BOLA Administration Metronidazole 500 mg in 100 mls @ 100 mls/hr 02/02/25 21:00 02/04/25 05:36 Flagyl 500 Mg/Iso Soln 100 Ml IVPB 100 mls/hr Q8H BOLA Administration Ceftriaxone Sodium 1 gm in 50 mls @ 100 mls/hr 02/02/25 22:00 02/03/25 21:40 Rocephin 1 Gm/Ns 50 Ml IVPB Infused Q24H BOLA Infusion Cefazolin Sodium 2 gm in 50 mls @ 100 mls/hr 02/04/25 13:00 Ancef 2 Gm/D5w 50 Ml IVPB 02/04/25 13:29 ONCE ONE Morphine Sulfate 4 mg 02/02/25 12:50 02/02/25 16:21 Morphine Sulfate (*Crx) 4 Mg/Ml Inj IV PUSH 4 mg Q2H PRN Administration Pain Rated 7-10 Morphine Sulfate 2 mg 02/02/25 21:30 Morphine Sulfate (*Crx) 2 Mg/Ml Inj IV PUSH Q4H PRN Pain Rated 4-6 Ondansetron HCl 4 mg 02/02/25 12:50 02/02/25 16:28 Ondansetron Inj 4 Mg/2 Ml Vial IV PUSH 4 mg Q4H PRN Administration Nausea Ondansetron HCl 4 mg 02/02/25 21:30 Ondansetron Inj 4 Mg/2 Ml Vial IV PUSH Q6H PRN Nausea And Vomiting Polyethylene Glycol 17 gm 02/03/25 13:42 Polyethylene Glycol 3350 17 Gm Powd.Pack PO QAM PRN Constipation Radiology Results: ITS Impressions Abdomen/Pelvis CT 02/02/25 10:25 IMPRESSION: Intra and extrahepatic biliary ductal dilatation without gallbladder enlargement but with significant gallbladder inflammation. No pancreatic ductal dilatation is identified No discrete ampullary mass is visualized with cross-sectional imaging. No calcified stone is visualized as a source of obstruction. Significant hepatomegaly. Trace right basilar atelectasis Upper Quadrant Ultrasound 02/03/25 09:22 IMPRESSION: 1: Contracted gallbladder with stones. Cannot exclude gallbladder wall thickening. MRCP 02/03/25 12:50 IMPRESSION: 1. Cholelithiasis within the decompressed gallbladder. 2. Interval resolution of the prior intra and extra hepatic biliary ductal dilation with no evident choledocholithiasis or other obstructing lesions. 3. Peripherally calcified cystic lesion in the spleen, likely sequela of chronic infection or hematoma. Labs Labs: Laboratory Results - last 24 hr 02/04/25 06:01 WBC 6.4 RBC 4.04 L Hgb 11.6 L Hct 36.2 L MCV 89.6 MCH 28.7 MCHC 32.0 RDW 14.6 H Plt Count 174 MPV 10.2 Sodium 139 Potassium 2.9 L Chloride 106 Carbon Dioxide 25 Anion Gap 8 BUN 8 Creatinine 0.46 L Estim Creat Clear Calc 114 Estimated GFR > 60 Glucose 91 Calcium 8.0 L Total Bilirubin 0.4 AST 98 H ALT 361 H Alkaline Phosphatase 161 H Total Protein 6.0 L Albumin 3.5 Hospitalist MIPS Advance Care Plan I have confirmed that the patient's Advanced Care Plan is present, code status is documented, or surrogate decision maker is listed in patient medical record.: Yes Medication Reconciliation I have utilized all available resources to obtain, update and review the patients current medications (includes all prescriptions, OTC, herbals, cannabis, and nutritional supplements).: Yes
[2025-02-04] MEDS: POTASSIUM CHLORIDE INJ 40 MEQ in SODIUM CHLORIDE 0.9% IV 500 ML 130 MEQ IVPB (10:57)
[2025-02-04] MEDS: POTASSIUM CHLORIDE 20 MEQ ER TABLET 40 MEQ PO (12:13)
--- NOTE | 2025-02-04 12:25 | WPDHPUPDATE1 ---
History and Physical Update Update Date/Time: 02/04/25 12:25 History and Physical has been reviewed, including an updated exam of the patient. There are NO changes in the patient's condition. Risks, benefits, and alternatives have been discussed and questions answered. Patient agrees to proceed with procedure.
[2025-02-04] MEDS: INDOCYANINE GREEN 25 MG VIAL WITH DILUENT 3.75 MG IV PUSH (12:49)
--- NOTE | 2025-02-04 14:11 | PC.NURSE ---
To OR at 1350, IV R AC. Report given to JOYCE Haro.
--- NOTE | 2025-02-04 14:22 | WPDANESEPPF ---
Anes - Initial Pre Proc Eval Procedure: Operation Date: 02/04/25 15:00 Proposed Procedures p Robotic Cholecystectomy Davinci Assisted, Possible Open - Hernando Flores DO Date/Time: 02/04/25 14:22 Surgeon: Bridgette Shaw APRN Pre Op Diagnosis: transamintis, biliary ductal dilatation Patient Data Age: 49 Gender: F Height: 1.52 m Weight: 76 kg Last Vital Signs Temp 98.4 F 02/04/25 05:40 Pulse 73 02/04/25 05:40 Resp 16 02/04/25 05:40 BP 119/72 02/04/25 05:40 Pulse Ox 94 02/04/25 08:00 O2 Del Method Room Air 02/04/25 08:00 FiO2 21 02/03/25 21:33 Allergies Allergy/AdvReac Type Severity Reaction Status Date / Time aspartame AdvReac Mild MOUTH Verified 02/02/25 06:46 ITCHING Home Medications ?Medication ?Instructions ?Recorded ?Confirmed ?Type multivit with minerals-iron 18 1 tablet PO DAILY 12/06/23 02/02/25 History mg-folic ac 400 mcg-vit K 25 mcg tablet (Adults Multivitamin) Laboratory Tests 02/04/25 06:01 WBC 6.4 K/mm3 (4.5-10.0) RBC 4.04 L M/mm3 (4.2-5.4) Hgb 11.6 L g/dL (12.0-15.0) Hct 36.2 L % (37.0-47.0) MCV 89.6 fl (80-100) MCH 28.7 pg (26-34) MCHC 32.0 g/dl (32-36) RDW 14.6 H % (11.5-14.5) Plt Count 174 k/mm3 (150-375) MPV 10.2 fl (7.4-10.4) Sodium 139 mmol/L (137-145) Potassium 2.9 L mmol/L (3.4-5.0) Chloride 106 mmol/L (98-107) Carbon Dioxide 25 mmol/L (22-30) Anion Gap 8 mmol/L (4-12) BUN 8 mg/dL (7-17) Creatinine 0.46 L mg/dL (0.7-1.0) Estim Creat Clear Calc 114 ml/min Estimated GFR > 60 (59 - ) Glucose 91 mg/dL (65-110) Calcium 8.0 L mg/dL (8.4-10.2) Total Bilirubin 0.4 mg/dL (0.2-1.3) AST 98 H U/L (14-36) ALT 361 H U/L (6-35) Alkaline Phosphatase 161 H U/L (38-126) Total Protein 6.0 L g/dL (6.3-8.2) Albumin 3.5 g/dL (3.5-5.1) Patient hx anesthesia problems: none Family hx anesthesia problems: none Results Review: All pre-operative results and documents have been reviewed as part of the pre-operative evaluation. [facility] Past Medical History Medical History Prediabetes Obesity Surgical History Surgical History History of arthroscopic knee surgery History of open reduction and internal fixation (ORIF) procedure repair of right humeral fracture Social History Social History Social History: Surrogate medical decision maker: Ray Lee, spouse. Code status: Full code. Smoking status: Never smoker Alcohol intake: never Substance use: never Substance use type: does not use Do You Feel Safe in your Home?: Yes Lack of Transportation: No Lack of Food: Never True Current Housing: I Have Housing Concerned About Future Housing: No Difficulty Paying Gas/Electric Bills: No Difficulty Paying for Meds: No Currently Unemployed: No Education: Associate Degree Difficulty w/ Childcare or Family Care: No Living arrangements: with family Additional living arrangements comments: Lives with spouse and daughter in [place]. 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 Spiritual care concerns: No Anes - Eval Final PreProcedure Day of Procedure 02/04/25 14:22 Patient weight: normal Lungs: normal air movement Airway: Mallampati scale class II Neurological: alert and oriented Last oral intake: >/= 8 hours ASA classification: II Emergent: no Anesthetic plan: proceed Anesthesia type and monitoring: general ETT and standard monitoring Results Review: All pre-operative results and documents have been reviewed as part of the pre-operative evaluation. BMI 32. Overall good health, no cp or sob w 1-2 fos. Informed Consent: The patient's anesthetic plan and its attendant risks and benefits were discussed with the patient/family/POA. Questions were solicited and answers provided to the satisfaction of the patient/family/POA.
[2025-02-04] MEDS: ACETAMINOPHEN 500 MG TABLET 1000 MG PO (14:32)
[2025-02-04] MEDS: KETOROLAC 15 MG/ML VIAL (*BKC) IV PUSH (14:32)
--- NOTE | 2025-02-04 14:59 | S_PTH ---
PATIENT: Nava Lee LOC: [id number] U#:[id number] AGE/SX: 49/F ROOM: 251 RE02/02/[address]: Bridgette Shaw APRN : 1975 BED: 01 DIS: 02/05/2025 SPEC #: [id number] RECD: 02/05/25 07:11 STATUS: ABAD REKatelyn #: [id number] TYLER: 02/04/25 14:[address]: Hernando Flores DEPT: [facility] Surgical RECD BY: Mindy Rocha ENTERED: 02/05/25 07:12 SP TYPE: Surgical OTHR DR: MD Bridgette Persaud APRN Tissues: A - Gallbladder Procedures: Hematoxylin and Eosin Stain Gross and Microscopic Level 3
[2025-02-04] MEDS: BUPIVACAINE/EPINEPHRINE 0.5% 50 ML VIAL 30 ML INFILTRATE (15:01)
[2025-02-04] MEDS: LACTATED RINGERS 1,000 ML 30 ML IV CONT (16:29)
--- NOTE | 2025-02-04 16:36 | P.OP_ITS ---
Procedure Note - Detailed Date of Procedure 02/04/25 Pre-op Diagnosis Acute calculous cholecystitis, elevated liver enzymes Post-op Diagnosis Same Procedure Performed 1. Laparoscopic cholecystectomy with cholangiography, da Ruchi assisted 2. Interpretation of cholangiography Surgeon Hernando Flores, DO Anesthesia General and Local (0.5% bupivacaine) Indications This is a 49-year-old woman who presented to the emergency department with epigastric abdominal pain. She was noted to have significantly elevated liver enzymes with a bilirubin of 2.4. CT showed intrahepatic duct and common bile duct dilatation and gallbladder wall thickening. She was admitted for further treatment. Her symptoms improved and liver enzymes were trending down. MRCP was obtained which showed no bile duct dilation or obstruction. Discussions were made with the patient about treatment options and decision was made to proceed with robotic assisted laparoscopic cholecystectomy. Findings 1.5 mL of indocyanine green was administered IV preoperatively. The patient then underwent laparoscopic cholecystectomy with cholangiography, da Ruchi assisted. Near infrared fluorescence imaging was utilized intraoperatively to assess the biliary anatomy. The gallbladder did not appear to have any uptake of the indocyanine green suggesting that the cystic duct was completely occluded. Was however able to identify the common bile duct filling with indocyanine green as well as evidence of indocyanine green within the duodenum. With careful dissection I was able to eventually identify the cystic duct which also still appeared to be occluded and slightly dilated. I did identify an area where it appeared taper down to about 7-8 mm and was able to get my endoscopic clips across the cystic duct at this point. The gallbladder appeared to be slightly contracted and filled with gallstones. The gallbladder wall appeared chronically thickened. The patient also had a very large left lobe of the liver that extended all the way across the right side. This made visualization s omewhat difficult because the liver was falling in the way of the view of the neck of the gallbladder. Did have to place 1 extra assist port to help retract this lobe of the liver to better visualize the gallbladder. The gallbladder was then removed and sent to the lab for pathology. Description of Procedure Procedure as well as risks, benefits, and alternatives were discussed with the patient. Written consent was obtained and placed in chart prior to procedure. 1.5 mL of indocyanine green was given intravenously in preop. Patient was broug ht back to surgical suite. She was placed supine on operating table. Time-out was done to confirm patient and procedure. She was then intubated by the anesthesia department. Her abdomen was then prepped and draped in sterile fashion using chlorhexidine prep. 0.5% bupivacaine was infiltrated locally at the site of each port placement. An 8 mm incision was made in the left upper quadrant and a 5 mm Optiview trocar was then advanced through the abdominal layers under direct visualization. Once inside the abdominal cavity, carbon dioxide insufflation was used to create a pneumoperitoneum. The camera was inserted and the abdomen was inspected. No mediated abnormalities were noted. The patient was placed in 12? reverse Trendelenburg position and rotated 6? to the left. Two 8 mm incisions were made in the right lateral abdomen and 2 8 mm trocars were inserted under direct visualization. An 8 mm incision was made in the supraumbilical region and an 8 mm trocar was inserted under direct visualization. The 5 mm Optiview trocar was then removed and another 8 mm trocar was inserted in its place. The robotic arms were then brought up to the patient's bedside and secured to each port. The camera and instruments were inserted. I then moved over to the robotic consult to take control of the camera and instruments. The gallbladder was grasped at the fundus and retracted cephalad. The infundibulum of the gallbladder was then grasped and retracted laterally. The neck of the gallbladder was initially hard to identify due to the very large left lobe of the liver. I eventually placed another 5 mm port in the left lateral abdomen and the 1st transportation assistant gently retracted the left lobe of the liver with a laparoscopic grasper. Hook electrocautery was then used to carefully dissect around the neck of the gallbladder. The cystic duct was identified and a window was created around it using hook electrocautery. The cystic artery was also identified and a window was created behind it using hook electrocautery. Critical view of safety was identified visualizing the cystic duct running directly into the neck of the gallbladder and the cystic artery running directly into the wall the gallbladder. The camera view was switched to firefly mode and the indocyanine green within the gallbladder and cystic duct was clearly visualized. No other structures were noted running into this region and there did not appear to be any obstruction of the cystic duct impeding flow of bile into the gallbladder. The camera mode was switched back to regular mode. Hemo lock clips were placed on both the cystic duct and cystic artery. Two clips were placed proximally and 1 distally. Hook electrocautery was then used to transect in between the clips. Once safely away from the theo hepatus, hook electrocautery was used to dissect the gallbladder off of the liver bed. Once the gallbladder was completely dissected free it was then placed in an Endo-Catch bag and removed through the left upper quadrant port site. The liver bed was carefully inspected. Hemostasis appeared adequate under clips appeared secure. No other intra-abdominal abnormalities were noted. A Galindo cone was then used to approximate the fascia of the left upper quadrant port using an 0 Vicryl suture. The remaining instruments and camera were removed and the robotic arms were disengaged from the ports. Pneumoperitoneum was released and the ports were removed. The skin of each of the incisions was then approximated using 4-0 Monocryl subcuticular suture. Exofin glue was then applied on top. Patient was then awakened from anesthesia, extubated, and transferred to recovery. Estimated Blood Loss 10 Urine Output 2 Pathology Yes (Gallbladder) Complications No immediate complications Condition Stable Disposition Floor [facility] Billing Surgery - Charge Forward: Surgery Billing
[2025-02-04] MEDS: LACTATED RINGERS 1,000 ML 100 ML IV CONT (18:26)
[2025-02-05] MEDS: metroNIDAZOLE 500 MG/ISO 100ML 500 MG/100 ML BAG 100 MG IVPB (05:06)
[2025-02-05 05:12] VITALS: BP 146/79; PULSE 59; RESP 16; TEMP 36.9; O2SAT 97
[2025-02-05 06:20] LABS: Basophils Percent Auto 0.4 % (0.2-1.2); Eosinophils Percent Auto 0.1 % (0-4.4); Hemoglobin 11.5 g/dL (12.0-15.0); Immature Granulocyte Absolute 0.02 K/mm3 (0.00-0.031); Immature Granulocyte Percent A 0.3 % (0-0.5); Lymphocytes Absolute Auto 1.82 K/mm3 (0.9-3.2); Lymphocytes Percent Auto 25.6 % (18.3-44.2); Mean Corpuscular HGB Conc 31.9 g/dl (32-36); Mean Corpuscular Hemoglobin 28.9 pg (26-34); Mean Corpuscular Volume 90.5 fl (80-100); Monocytes Absolute Auto 0.5 K/mm3 (0.1-0.6); Monocytes Percent Auto 6.5 % (2.6-8.5); Neutrophils Absolute Auto 4.8 K/mm3 (1.3-6.7); Neutrophils Percent Auto 67.1 % (45.5-73.1); Platelet Count Result 178 k/mm3 (150-375); Red Blood Count 3.98 M/mm3 (4.2-5.4); Red Cell Distribution Width 14.6 % (11.5-14.5); White Blood Count 7.1 K/mm3 (4.5-10.0)
[2025-02-05 06:28] LABS: Anion Gap 9 mmol/L (4-12); Blood Urea Nitrogen 8 mg/dL (7-17); Calcium 8.6 mg/dL (8.4-10.2); Carbon Dioxide 22 mmol/L (22-30); Chloride 106 mmol/L (98-107); Estimated CRCL calculation 95 ml/min; Estimated Glomerular Filt Rate > 60; Glucose 93 mg/dL (65-110); Magnesium 2.1 mg/dL (1.6-2.3); Phosphorus 3.5 mg/dL (2.5-4.5); Potassium 3.5 mmol/L (3.4-5.0); Sodium 137 mmol/L (137-145)
--- NOTE | 2025-02-05 07:02 | P.PNIM_ITS ---
Progress Note: A&P Assessment and Plan (1) Dilated bile duct: Code(s): K83.8 - Other specified diseases of biliary tract Status: Acute (2) Common bile duct dilatation: Code(s): K83.8 - Other specified diseases of biliary tract Status: Acute (3) Cholelithiasis with cholecystitis: Code(s): K80.10 - Calculus of gallbladder with chronic cholecystitis without obstruction Status: Acute (4) Transaminitis: Code(s): R74.01 - Elevation of levels of liver transaminase levels Status: Acute (5) Hepatomegaly: Code(s): R16.0 - Hepatomegaly, not elsewhere classified Status: Acute (6) Prediabetes: Code(s): R73.03 - Prediabetes Status: Acute Plan The patient presented to the emergency department for evaluation of upper abdominal pain, nausea, and vomiting intermittently over the past [address] scan showed a significantly inflamed gallbladder, intra and extrahepatic biliary ductal dilatation, and a dilated common bile duct without evidence of obstruction. She has been started on ceftriaxone and metronidazole Analgesics and antiemetics are available as needed. GI/surgery consulted - MRCP done, there is no bile duct dilatation or filling defects suggesting a stone. - bilirubin, transaminases and alkaline phosphatase trending down -trend daily labs Surgery consulted -miralax, colace ordered Subjective Date/time seen: 02/05/25 07:02 Interval history: s/p lap alison Potassium 3.5, 20meq. Mag normal Jesus 49-year-old female with prediabetes who presented to emergency department via private vehicle with complaints of abdominal pain. Elevated bilrubin. MRCP no evidence of choledocholithiasis. Planning OR for cholecystectomy today. Review of Systems Review of Systems: 12 systems were reviewed and are negativ e except for as per HPI. Exam Narrative: General: Nontoxic-appearing female Weight: 75 kg. BMI: 32.3. HEENT: PERRL, EOMI. Sclera anicteric. Tacky mucous membranes. Neck: Supple. Respiratory: Lungs are clear to auscultation bilaterally. Cardiovascular: Regular rate and rhythm with S1-S2. Gastrointestinal: Abdomen is soft and nondistended with positive bowel sounds. Somewhat tender to deeper palpation in the right upper quadrant. No guarding or rebound tenderness. Negative Lai sign. Skin: Warm and dry. Extremities: No cyanosis, clubbing, or edema. Radial and pedal pulses intact. Neurological: Alert. Cranial nerves 2-12 are grossly intact. No gross focal deficits to casual conversation. Psychiatric: Pleasant and cooperative with normal mood and affect. Judgment and insight intact. Const: General: comfortable Objective Data Vital Signs Vital Signs: Vital Signs - 24 hr 02/04/25 08:00 02/04/25 14:00 02/04/25 16:29 Temperature 98.9 F 98.2 F Pulse Rate 78 68 Respiratory Rate 16 8 L Blood Pressure 124/74 90/50 L Pulse Oximetry 94 95 95 Oxygen Delivery Room Air Room Air Simple Face Mask Oxygen Flow Rate 6 02/04/25 16:40 02/04/25 16:55 02/04/25 17:05 Temperature Pulse Rate 74 82 Respiratory Rate 10 L 12 Blood Pressure 92/47 L 111/70 Pulse Oximetry 98 99 Oxygen Delivery Simple Face Mask Simple Face Mask Room Air Oxygen Flow Rate 6 6 02/04/25 17:10 02/04/25 17:25 02/04/25 17:35 Temperature 98.2 F Pulse Rate 89 83 75 Respiratory Rate 12 14 14 Blood Pressure 119/76 125/79 136/76 Pulse Oximetry 95 95 94 Oxygen Delivery Room Air Room Air Room Air Oxygen Flow Rate 02/04/25 17:50 02/04/25 18:05 02/04/25 18:35 Temperature 98.0 F 98.1 F 98.1 F Pulse Rate 68 64 79 Respiratory Rate 16 16 16 Blood Pressure 132/75 130/74 127/75 Pulse Oximetry 95 92 95 Oxygen Delivery Oxygen Flow Rate 02/04/25 19:24 02/04/25 20:00 02/04/25 23:24 Temperature 98.6 F 98 F Pulse Rate 66 58 L Respiratory Rate 18 16 Blood Pressure 130/80 120/65 Pulse Oximetry 94 97 Oxygen Delivery Room Air Oxygen Flow Rate 02/05/25 05:12 Temperature 98.5 F Pulse Rate 59 L Respiratory Rate 16 Blood Pressure 146/79 H Pulse Oximetry 97 Oxygen Delivery Oxygen Flow Rate Intake/Output Intake/Output: Intake & Output 02/02/25 02/03/25 02/04/25 02/05/25 23:59 23:59 23:59 23:59 Intake Total 983.3 2470 1758.3 300 Output Total 300 4 Balance 983.3 2170 1754.3 300 Meds/Results Medications: Active Medications Generic Name Dose Route Start Last Admin Trade Name Freq PRN Reason Stop Dose Admin Hydrocodone Bitart/Acetaminophen 1 tab 02/04/25 17:39 Hydrocodone/Acetaminophen (*Crx) 5-325 Mg Tablet PO Q4H PRN Pain Rated 4-6 Hydrocodone Bitart/Acetaminophen 1 tab 02/04/25 17:39 Hydrocodone/Acetaminophen (*Crx) 7.5-325 Mg Tablet PO Q4H PRN Pain Rated 7-10 Diphenhydramine HCl 25 mg 02/04/25 17:39 Diphenhydramine Hcl Inj 50 Mg/Ml Vial IV PUSH Q6H PRN Itching Docusate Sodium 100 mg 02/03/25 13:42 Docusate Sodium 100 Mg Capsule PO Q12H PRN Constipation Metronidazole 500 mg in 100 mls @ 100 mls/hr 02/02/25 21:00 02/05/25 06:06 Flagyl 500 Mg/Iso Soln 100 Ml IVPB Infused Q8H BOLA Infusion Ceftriaxone Sodium 1 gm in 50 mls @ 100 mls/hr 02/02/25 22:00 02/04/25 21:17 Rocephin 1 Gm/Ns 50 Ml IVPB Infused Q24H BOLA Infusion Ibuprofen 600 mg 02/04/25 17:39 Ibuprofen 600 Mg Tablet PO Q6H PRN Pain Rated 1-3 Morphine Sulfate 2 mg 02/04/25 17:39 Morphine Sulfate (*Crx) 2 Mg/Ml Inj IV PUSH Q2H PRN Breakthrough Pain Rated 4-6 or NPO Morphine Sulfate 4 mg 02/04/25 17:39 Morphine Sulfate (*Crx) 4 Mg/Ml Inj IV PUSH Q2H PRN Breakthrough Pain Rated 7-10 or NPO Naloxone HCl 0.1 mg 02/04/25 17:39 Naloxone Hcl 0.4 Mg/Ml Vial IV PUSH Q2M PRN Opiate Reversal Ondansetron HCl 4 mg 02/02/25 12:50 02/02/25 16:28 Ondansetron Inj 4 Mg/2 Ml Vial IV PUSH 4 mg Q4H PRN Administration Nausea Polyethylene Glycol 17 gm 02/03/25 13:42 Polyethylene Glycol 3350 17 Gm Powd.Pack PO QAM PRN Constipation Potassium Chloride 20 meq 02/05/25 06:58 Potassium Chloride 20 Meq Er Tablet PO 02/05/25 06:59 ONCE ONE Radiology Results: ITS Impressions Abdomen/Pelvis CT 02/02/25 10:25 IMPRESSION: Intra and extrahepatic biliary ductal dilatation without gallbladder enlargement but with significant gallbladder inflammation. No pancreatic ductal dilatation is identified No discrete ampullary mass is visualized with cross-sectional imaging. No calcified stone is visualized as a source of obstruction. Significant hepatomegaly. Trace right basilar atelectasis Upper Quadrant Ultrasound 02/03/25 09:22 IMPRESSION: 1: Contracted gallbladder with stones. Cannot exclude gallbladder wall thickening. MRCP 02/03/25 12:50 IMPRESSION: 1. Cholelithiasis within the decompressed gallbladder. 2. Interval resolution of the prior intra and extra hepatic biliary ductal di lation with no evident choledocholithiasis or other obstructing lesions. 3. Peripherally calcified cystic lesion in the spleen, likely sequela of chronic infection or hematoma. Labs Labs: Laboratory Results - last 24 hr 02/05/25 05:53 WBC 7.1 RBC 3.98 L Hgb 11.5 L Hct 36.0 L MCV 90.5 MCH 28.9 MCHC 31.9 L RDW 14.6 H Plt Count 178 MPV 11.0 H Immature Gran % (Auto) 0.3 Neut % (Auto) 67.1 Lymph % (Auto) 25.6 [place] % (Auto) 6.5 Eos % (Auto) 0.1 Baso % (Auto) 0.4 Lymph # (Auto) 1.82 [place] # (Auto) 0.5 Eos # (Auto) 0.0 Baso # (Auto) 0.0 Abs Immat Gran (auto) 0.02 Absolute Neuts (auto) 4.8 Absolute Nucleated RBC 0.000 Nucleated RBC % 0.0 Sodium 137 Potassium 3.5 Chloride 106 Carbon Dioxide 22 Anion Gap 9 BUN 8 Creatinine 0.56 L Estim Creat Clear Calc 95 Estimated GFR > 60 Glucose 93 Calcium 8.6 Phosphorus 3.5 Magnesium 2.1 Quality VTE Prophylaxis VTE prophylaxis: mechanical ordered
[2025-02-05 07:24] VITALS: BP 143/80; PULSE 60; RESP 18; TEMP 36.6; O2SAT 97
[2025-02-05] MEDS: POTASSIUM CHLORIDE 20 MEQ ER TABLET PO (07:58)
--- NOTE | 2025-02-05 09:37 | PM.DS ---
DS: Admitting Diagnosis Discharge Date 02/05/2025 Admitting Diagnosis Common bile duct dilation Cholelithiasis Transaminitis Hepatomegaly DS: Summary Hospital Course Reason for hospitalization: Copied from [facility] 02/02: This is a 49-year-old female with prediabetes who presented to emergency department via private vehicle with complaints of abdominal pain. She gives a 1 week history of intermittent epigastric abdominal discomfort which she describes as a bloating sensation however on occasion it feels as though she is wearing a tight corset. It can be precipitated by fatty foods however sometimes it occurs during the middle of the night. It is associated with nausea and she reports having episodes of emesis on Sunday and today. She initially thought she was constipated as she has only been passing small, pebble like stools and a few days ago she digitally disimpacted herself without much success. She denies fever, chills, sweats, pruritus, jaundice, belching, hematemesis, melena, hematochezia, and dysuria. No history of gastritis, esophagitis, pancreatitis, or gallbladder disease. In the ED: Vital signs on arrival include temperature 97.8?, blood pressure 144/76, pulse 70, SpO2 100% on room air. Labs are significant for WBC count of 5.2, hemoglobin 14.0, carbon dioxide 31, BUN 6, creatinine 0.56, glucose 168, total bilirubin 2.4, AST 668, ALT 7 O2, alkaline phosphatase 210, lipase 98. CT scan showed intra and extrahepatic biliary ductal dilatation with significant gallbladder inflammation and significant hepatomegaly. She was given a L of normal saline and she is being admitted in this setting for pain control and GI and surgery input. Hospital Course: Kye Lee presented to the hospital for abdominal pain, found to have elevated LFT's. Acute calculous cholecystitis Elevated Liver enzymes Surgery consulted and she had a lap alison 02-[address] Alejo. Bilirubin 2.4, AST 668, ALT 702, Alk phos 210, improved to 0.4/98/361/161 prior to OR 02/03 MRCP showed 1. Cholelithiasis within the decompressed gallbladder. 2. Interval resolution of the prior intra and extra hepatic biliary ductal dilation with no evident choledocholithiasis or other obstructing lesions. 3. Peripherally calcified cystic lesion in the spleen, likely sequela of chronic infection or hematoma. PLAN Follow-up LFTs, BMP, CBC in 1-2 weeks Follow up with Surgery in Clinic Hypokalemia--potassium 2.9 replaced and normalized. 3.5 & addtional 20meq. Should have repeat labs in 1 week. Follow up with PCP Status at Discharge Cognitive/behavioral status at discharge: A&Ox4 Time Spent with Patient Time attestation: Total time spent providing and/or coordinating discharge services: DS: Data Data Completed and Pending Pending studies at discharge: Pending at discharge 02/04/25 14:59 Surgical [PTH] Routine Labs on day of discharge: Labs from last 24 hours 02/05/25 05:53 WBC 7.1 RBC 3.98 L Hgb 11.5 L Hct 36.0 L MCV 90.5 MCH 28.9 MCHC 31.9 L RDW 14.6 H Plt Count 178 MPV 11.0 H Immature Gran % (Auto) 0.3 Neut % (Auto) 67.1 Lymph % (Auto) 25.6 [place] % (Auto) 6.5 Eos % (Auto) 0.1 Baso % (Auto) 0.4 Lymph # (Auto) 1.82 [place] # (Auto) 0.5 Eos # (Auto) 0.0 Baso # (Auto) 0.0 Abs Immat Gran (auto) 0.02 Absolute Neuts (auto) 4.8 Absolute Nucleated RBC 0.000 Nucleated RBC % 0.0 Sodium 137 Potassium 3.5 Chloride 106 Carbon Dioxide 22 Anion Gap 9 BUN 8 Creatinine 0.56 L Estim Creat Clear Calc 95 Estimated GFR > 60 Glucose 93 Calcium 8.6 Phosphorus 3.5 Magnesium 2.1 Discharge Plan Discharge Attending physician on discharge: Bridgette Shaw Consulting providers: Hernando Alejo Discharging Clinician: Bridgette Shaw Anticipated Discharge Date/Time: 02/05/25 09:40 Patient Disposition: Home Activity: may shower Diet: other - see discharge instructions Discharge Instructions: DISCHARGE INSTRUCTION SHEET FOR HERNIA, GALLBLADDER AND APPENDIX SURGERIES DR. ALEJO 1. May shower in 24 hours, no soaking in bath x 2weeks. 2. Call office for: Wound increasingly painful or bleeding Vomiting Fever of greater than 101 degrees 3. If no bowel movement for three days, take 1 oz. (30 ml) Milk of Magnesia or MiraLax 17g 1 to 2 times daily. 4. No heavy lifting > 10-15 pounds x 2 weeks for laparoscopic cholecystectomy or appendectomy. 5. No driving for 3 days or while taking narcotic pain medications. 6. Ice to surgical site for 48 hours (30 min on, then 30 min off). 7. Up walking 10-30 minutes three times per day. 8. Resume previous home medications. 9. Follow-up 10-14 days in office for wound check or as previously scheduled. ([phone]) 10. Take Tylenol 500mg every 6 hours and Ibuprofen 600mg every 6 hours for the first 2 days, then as needed. 11. NUTRITION: Start out by drinking fluids and increase your diet as tolerated. If you experience nausea, try dry toast, crackers, and 7-UP. If nausea or vomiting persists, contact your surgeon?s office. 12. Gallbladders-Low Fat Diet for 2 weeks (send care note of low fat diet) Revised January 2019 Patient Instructions: Antibiotic Form Patient Language: Citizen Of [place] Stand Alone Forms: General Discharge Information Follow-up/Referrals: Aditya Mohan [Other] Hernando Alejo DO [Physician] - Call for Appointment () Discharge Medications: Continued Adults Multivitamin 18 mg iron-400 mcg-25 mcg Tablet 1 tablet PO DAILY Date of admission: 02/05/25 10:25 Primary Care Provider: Aditya Mohan Admitting Provider: Goldy Trejo Attending physician on admission: Bridgette Shaw Condition: Stable
--- NOTE | 2025-02-05 11:51 | PM.PNGS ---
Progress Note: A&P Assessment and Plan (1) Cholelithiasis with cholecystitis: Code(s): K80.10 - Calculus of gallbladder with chronic cholecystitis without obstruction Status: Acute Assessment and Plan: Patient is not experiencing any abdominal plain, nausea, or vomiting today. Having regular bowel movements. Plan for discharge with outpatient follow up in [address] Flores. Subjective Subjective Date/Time Seen: 02/05/25 11:51 Interval history: POD1. Patient is feeling well today and tolerating low fat diet. Pain is tolerable. Afebrile with normal WBC. Passing flatus and having BMs. Exam GI: Inspection: non-distended Auscultation: normal bowel sounds Other: negative Lai's sign. Surgical incision sites are clean and dry with glue intact. No surrounding erythema or edema or drainage. Objective Data Vital Signs Vital Signs: Vital Signs - 24 hr 02/04/25 14:00 02/04/25 16:29 02/04/25 16:40 Temperature 98.9 F 98.2 F Pulse Rate 78 68 74 Respiratory Rate 16 8 L 10 L Blood Pressure 124/74 90/50 L 92/47 L Pulse Oximetry 95 95 98 Oxygen Delivery Room Air Simple Face Mask Simple Face Mask Oxygen Flow Rate 6 6 02/04/25 16:55 02/04/25 17:05 02/04/25 17:10 Temperature Pulse Rate 82 89 Respiratory Rate 12 12 Blood Pressure 111/70 119/76 Pulse Oximetry 99 95 Oxygen Delivery Simple Face Mask Room Air Room Air Oxygen Flow Rate 6 02/04/25 17:25 02/04/25 17:35 02/04/25 17:50 Temperature 98.2 F 98.0 F Pulse Rate 83 75 68 Respiratory Rate 14 14 16 Blood Pressure 125/79 136/76 132/75 Pulse Oximetry 95 94 95 Oxygen Delivery Room Air Room Air Oxygen Flow Rate 02/04/25 18:05 02/04/25 18:35 02/04/25 19:24 Temperature 98.1 F 98.1 F 98.6 F Pulse Rate 64 79 66 Respiratory Rate 16 16 18 Blood Pressure 130/74 127/75 130/80 Pulse Oximetry 92 95 94 Oxygen Delivery Oxygen Flow Rate 02/04/25 20:00 02/04/25 23:24 02/05/25 05:12 Temperature 98 F 98.5 F Pulse Rate 58 L 59 L Respiratory Rate 16 16 Blood Pressure 120/65 146/79 H Pulse Oximetry 97 97 Oxygen Delivery Room Air Oxygen Flow Rate 02/05/25 07:24 02/05/25 08:00 Temperature 98 F Pulse Rate 60 Respiratory Rate 18 Blood Pressure 143/80 H Pulse Oximetry 97 Oxygen Delivery Room Air Oxygen Flow Rate Intake/Output Intake/Output: Intake & Output 02/02/25 02/03/25 02/04/25 02/05/25 23:59 23:59 23:59 23:59 Intake Total 983.3 2470 1758.3 420 Output Total 300 4 Balance 983.3 2170 1754.3 420 Meds/Results Medications: Active Medications Generic Name Dose Route Start Last Admin Trade Name Freq PRN Reason Stop Dose Admin Hydrocodone Bitart/Acetaminophen 1 tab 02/04/25 17:39 Hydrocodone/Acetaminophen (*Crx) 5-325 Mg Tablet PO Q4H PRN Pain Rated 4-6 Hydrocodone Bitart/Acetaminophen 1 tab 02/04/25 17:39 Hydrocodone/Acetaminophen (*Crx) 7.5-325 Mg Tablet PO Q4H PRN Pain Rated 7-10 Diphenhydramine HCl 25 mg 02/04/25 17:39 Diphenhydramine Hcl Inj 50 Mg/Ml Vial IV PUSH Q6H PRN Itching Docusate Sodium 100 mg 02/03/25 13:42 Docusate Sodium 100 Mg Capsule PO Q12H PRN Constipation Ibuprofen 600 mg 02/04/25 17:39 Ibuprofen 600 Mg Tablet PO Q6H PRN Pain Rated 1-3 Levofloxacin 750 mg 02/05/25 21:00 Levofloxacin 750 Mg Tablet PO 02/07/25 21:01 QHS BOLA Metronidazole 500 mg 02/05/25 14:00 Metronidazole 500 Mg Tablet PO 02/07/25 22:01 Q8HR BOLA Morphine Sulfate 2 mg 02/04/25 17:39 Morphine Sulfate (*Crx) 2 Mg/Ml Inj IV PUSH Q2H PRN Breakthrough Pain Rated 4-6 or NPO Morphine Sulfate 4 mg 02/04/25 17:39 Morphine Sulfate (*Crx) 4 Mg/Ml Inj IV PUSH Q2H PRN Breakthrough Pain Rated 7-10 or NPO Naloxone HCl 0.1 mg 02/04/25 17:39 Naloxone Hcl 0.4 Mg/Ml Vial IV PUSH Q2M PRN Opiate Reversal Ondansetron HCl 4 mg 02/02/25 12:50 02/02/25 16:28 Ondansetron Inj 4 Mg/2 Ml Vial IV PUSH 4 mg Q4H PRN Administration Nausea Polyethylene Glycol 17 gm 02/03/25 13:42 Polyethylene Glycol 3350 17 Gm Powd.Pack PO QAM PRN Constipation Radiology Results: ITS Impressions Abdomen/Pelvis CT 02/02/25 10:25 IMPRESSION: Intra and extrahepatic biliary ductal dilatation without gallbladder enlargement but with significant gallbladder inflammation. No pancreatic ductal dilatation is identified No discrete ampullary mass is visualized with cross-sectional imaging. No calcified stone is visualized as a source of obstruction. Significant hepatomegaly. Trace right basilar atelectasis Upper Quadrant Ultrasound 02/03/25 09:22 IMPRESSION: 1: Contracted gallbladder with stones. Cannot exclude gallbladder wall thickening. MRCP 02/03/25 12:50 IMPRESSION: 1. Cholelithiasis within the decompressed gallbladder. 2. Interval resolution of the prior intra and extra hepatic biliary ductal dilation with no evident choledocholithiasis or other obstructing lesions. 3. Peripherally calcified cystic lesion in the spleen, likely sequela of chronic infection or hematoma. Labs Labs: Laboratory Results - last 24 hr 02/05/25 05:53 WBC 7.1 RBC 3.98 L Hgb 11.5 L Hct 36.0 L MCV 90.5 MCH 28.9 MCHC 31.9 L RDW 14.6 H Plt Count 178 MPV 11.0 H Immature Gran % (Auto) 0.3 Neut % (Auto) 67.1 Lymph % (Auto) 25.6 [place] % (Auto) 6.5 Eos % (Auto) 0.1 Baso % (Auto) 0.4 Lymph # (Auto) 1.82 [place] # (Auto) 0.5 Eos # (Auto) 0.0 Baso # (Auto) 0.0 Abs Immat Gran (auto) 0.02 Absolute Neuts (auto) 4.8 Absolute Nucleated RBC 0.000 Nucleated RBC % 0.0 Sodium 137 Potassium 3.5 Chloride 106 Carbon Dioxide 22 Anion Gap 9 BUN 8 Creatinine 0.56 L Estim Creat Clear Calc 95 Estimated GFR > 60 Glucose 93 Calcium 8.6 Phosphorus 3.5 Magnesium 2.1
== END 2025-02-05 12:45 | disposition home or self-care (01) ==
LOC: ANHED 11:59 → ANH2MED 13:25
PROVIDERS: Emergency Medicine; Physician Assistant; Surgery; Admitting Provider General Practice; Emergency Provider Physician Assistant; Visit Provider Nurse Practitioner Acute Care
PROC: 0FT44ZZ Resection of Gallbladder, Percutaneous Endoscopic Approach (ICD-10-PCS; CPT 47562; principal; 2025-02-04 15:00)
DX: K80.10 Calculus of gallbladder with chronic cholecystitis without obstruction (principal); K83.8 Other specified diseases of biliary tract; E87.6 Hypokalemia; R74.01 Elevation of levels of liver transaminase levels; R16.0 Hepatomegaly, not elsewhere classified; R73.03 Prediabetes; E66.9 Obesity, unspecified; Z68.32 Body mass index [BMI] 32.0-32.9, adult
CPT/HCPCS: 47563; C9776; S2900; 36415; 74177; 74183; 76376; 76705; 80048; 80053; 81001; 81025; 83690; 83735; 84100; 84484; 85025; 85027; 88304; 93005; 96360; 96361; 96374; 96375; 99285; A9270; A9577; G0378; J0696; J1100; J1171; J1200; J1836; J1885; J2003; J2250; J2270; J2405; J2704; J3010; J3480; J7030; J7040; J7120; Q9967

== ENCOUNTER 2025-06-05 10:14 | Outpatient (CLI) | payer OTHER, BC, SELFPAY ==
--- NOTE | ~2025-06-05 | MM_ITS ---
EXAMINATION: MM screening sophia BI w jessica HISTORY: Screening TECHNIQUE: Craniocaudal and mediolateral oblique 3-D tomosynthesis images were obtained and synthetic 2-D images were generated. CAD analysis was submitted and interpreted. COMPARISON: Comparison to multiple prior studies sequentially, with oldest reviewed study dated , 01/31/2022 BREAST PARENCHYMAL COMPOSITION: The breasts are almost entirely fatty. FINDINGS: There is no evidence of suspicious mass, calcification, or architectural distortion to suggest malignancy in either breast. IMPRESSION: 1. No mammographic evidence of malignancy. 2. Recommend routine screening mammography in one year. BI-RADS Category 1: Negative Reviewed, dictated and finalized at location B.
== END 2025-06-05 10:15 | disposition home or self-care (01) ==
PROVIDERS: Visit Provider Obstetrics & Gynecology
DX: Z12.31 Encounter for screening mammogram for malignant neoplasm of breast (principal)
CPT/HCPCS: 77063; 77067